=== PATIENT | male | born 1940 | race Caucasian/White ===

== ENCOUNTER 2017-06-16 13:54 | Emergency (ER) | payer MEDICARE, OTHER ==
[~2017-06-16 13:54] MED LIST: CLON0.5T PO; CLOP75TA57 PO; Carbidopa/Levodopa PO; EZET10TA18 PO; HYDR12.58 PO; LACO50TA PO; LEVO50TA PO; METF500T4 PO; METO-269 PO; SIMV80TA3 PO; SITA50TA PO; VALS160T3 PO
[2017-06-16] MEDS ORDERED: LIDOCAINE 1%/EPI 1:100,000 20 ML VIAL. INJ ONE (14:15)
--- NOTE | 2017-06-16 14:17 | PHYS DOC ---
Past Medical History Past Medical History: Diabetes-Type II, High Cholesterol, Hypertension, Other Additional Past Medical Histor: tremors Past Surgical History: Coronary Bypass Surgery Alcohol Use: None Drug Use: None Adult General Chief Complaint Chief Complaint: leg laceration [facility] HPI Patient is a pleasant 77-year-old male who sustained a laceration this morning after tripping over a broken bottle in his home. He has a history of Parkinson' s and essential tremor as well as diabetes hypertension hyperlipidemia who actually stopped fell on a broken bottle this morning. He denies any foreign body sensation but he was not able to get the bleeding stopped with direct pressure until a neighbor came over and looked at the wound. EMS was dispatched to scene and they placed a pressure dressing on it that some subsequently stopped the bleeding. Patient has minimal pain, no evidence of dizziness or lightheadedness. Patient has no chest pain, abdominal pain or focal neurologic deficits below the wound. Review of Systems Review of Systems Constitutional: Denies fever or chills [] Eyes: Denies change in visual acuity, redness, or eye pain [] HENT: Denies nasal congestion or sore throat [] Respiratory: Denies cough or shortness of breath [] Cardiovascular: No additional information not addressed in HPI [] GI: Denies abdominal pain, nausea, vomiting, bloody stools or diarrhea [] : Denies dysuria or hematuria [] Musculoskeletal: Denies back pain or joint pain [] Integument: Denies rash or skin lesions [] Neurologic: Denies headache, focal weakness or sensory changes [] Endocrine: Denies polyuria or polydipsia [] Current Medications Current Medications Current Medications Medications (Trade) Dose Ordered Sig/[facility] Start Time Stop Time Status Last Admin Dose Admin Lidocaine/ Epinephrine (Xylocaine 1%-Epi 1:100,000) 20 ml 1X ONCE 06/16/17 14:15 06/16/17 14:16 DC 06/16/17 14:15 20 ML Allergies Allergies Allergies Coded Allergies Type Severity Reaction Last Updated Verified No Known Drug Allergies 06/17/15 No Physical Exam Physical Exam Constitutional: Well developed, well nourished, no acute distress, non-toxic appearance. [] Cardiovascular:Heart rate regular rhythm, no murmur [] Lungs & Thorax: Bilateral breath sounds clear to auscultation [] Skin: Warm, dry, no erythema, no rash. 3 cm laceration located on the lateral aspect of the left lower leg no foreign body noted active bleeding is diminished significantly. There is significant clot within the wound. Extremities: No tenderness, no cyanosis, he has an essential tremor Neurologic: Alert and oriented X 3, normal motor function, normal sensory function, no focal deficits noted. [] Psychologic: Affect normal, judgement normal, mood normal. [] Current Patient Data Vital Signs Vital Signs Date Time Temp Pulse Resp B/P (MAP) Pulse Ox O2 Delivery O2 Flow Rate FiO2 06/16/17 14:40 98.6 46 18 160/48 (85) 100 Room Air 98.6 EKG EKG [] Radiology/Procedures Radiology/Procedures [] IMAGING REPORT Signed PATIENT: TALIA JENNINGS ACCOUNT: [id number] : 1940 LOCATION: ER AGE: 77 SEX: M EXAM STATUS: PRE ER ORD. PHYSICIAN: RAKEL JON MD REASON: laceration lower leg ED15 PROCEDURE: TIBIA FIBULA LEFT Indication fall. Pain. AP and lateral views of the left tibia and fibula were obtained. No bony abnormality is seen. No definite radiopaque foreign body is seen in the soft tissues DICTATED and SIGNED BY: MIKE MONTALVO MD DATE: 06/16/171428 CC: RAKEL JON MD ~ Course & Med Decision Making Course & Med Decision Making Pertinent Labs and Imaging studies reviewed. (See chart for details) 3 view leg x-ray reviewed by me demonstrated no foreign body. By Dr. Jon [] Dragon Disclaimer Dragon Disclaimer This electronic medical record was generated, in whole or in part, using a voice recognition dictation system. Laceration Repair Lac Repair Indication: [] Laceration to the left leg. Procedure: The patient was placed in the appropriate position and anesthesia around the left lower leg 5 mL of 2% lidocaine. The area was then with direct pressure and Betadine.]. The laceration was closed with 4.0 Ethilon 8 interrupted sutures].The wound area was then dressed with bacitracin and dry dressing.. Total repaired wound length: 2.5 cm]. Other Items: No Foreign body noted within the wound itself. The patient tolerated the procedure [the procedure well]. Complications: [No complications. Departure Departure Impression: Primary Impression: Laceration Additional Impression: Tremor Disposition: 01 HOME, SELF-CARE Condition: IMPROVED Patient Instructions: Laceration Care, Adult Additional Instructions: History of any signs of infection or if you have any questions or concerns or difficulty in the bleeding stopped. Scripts Bacitracin Zinc/Polymyx B Sulf (DOUBLE ANTIBIOTIC OINTMENT) 28.4 Gm Oint...g. 28.4 GM TP TID for 5 Days, MISC Prov: RAKEL JON MD 06/16/17 Problem Qualifiers RAKEL JON MD Jun 16, 2017 14:17
--- NOTE | 2017-06-16 14:34 | RAD ---
Indication fall. Pain. AP and lateral views of the left tibia and fibula were obtained. No bony abnormality is seen. No definite radiopaque foreign body is seen in the soft tissues
[2017-06-16 14:40] VITALS: BP 160/48
[2017-06-16] MEDS ORDERED: BACI28.4 TP (15:00)
[2017-06-17] MEDS ORDERED: BACITRACIN/POLYMYXIN B TOPICAL OINT 15GM TUBE. TP SCH (09:00)
== END 2017-06-16 15:24 | disposition home or self-care (01) ==
LOC: ER 13:54
DX: S81.812A Laceration without foreign body, left lower leg, initial encounter (principal); R25.1 Tremor, unspecified; E11.9 Type 2 diabetes mellitus without complications; E78.00 Pure hypercholesterolemia, unspecified; E78.5 Hyperlipidemia, unspecified; I10 Essential (primary) hypertension; G20 Parkinson's disease; G25.0 Essential tremor; Z95.1 Presence of aortocoronary bypass graft; W26.8XXA Contact with other sharp object(s), not elsewhere classified, initial encounter; Y93.89 Activity, other specified; Y92.009 Unspecified place in unspecified non-institutional (private) residence as the place of occurrence of the external cause; Y99.8 Other external cause status
CPT/HCPCS: 12001; 73590; 99284; J3490

== ENCOUNTER 2018-07-18 10:36 | Emergency (ER) | payer MEDICARE, OTHER ==
[~2018-07-18] VITALS: Ht 167.6 cm; Wt 86.2 kg
[~2018-07-18 10:36] MED LIST changes: +AMLO5TAB2 PO; +ASPI-612 PO; +BACI28.4 TP; +CARB1TAB2 PO; +CLOP75TA PO; +CYAN10005 PO; +ESCITALOPRAM OX10 MG PO; +FURO20TA3 PO; +GABA-585 PO; +GLIP-112 PO; +GLIP5TAB22 PO; +HYDR25TA9 PO; +LEVO75TA5 PO; -METF500T4 PO; +METF500T5 PO; -SIMV80TA3 PO; +SIMV80TA7 PO; +SITA100T PO
[2018-07-18 11:29] LABS: BASO # 0.1 x10^3/uL (0.0-0.2); BASO % 1 % (0-3); EOS # 0.2 x10^3/uL (0.0-0.7); EOS % 4 % (0-3); HEMATOCRIT 44.2 % (39.0-53.0); HEMOGLOBIN 15.1 g/dL (13.0-17.5); LYMPH # 1.1 x10^3/uL (1.0-4.8); LYMPH % 25 % (24-48); MEAN CORPUSCULAR HEMOGLOBIN 31 pg (25-35); MEAN CORPUSCULAR HGB CONC 34 g/dL (31-37); MEAN CORPUSCULAR VOLUME 90 fL (79-100); MONO # 0.5 x10^3/uL (0.0-1.1); MONO % 12 % (0-9); NEUT # 2.7 x10^3uL (1.8-7.7); NEUT % 59 % (31-73); PLATELET COUNT 187 x10^3/uL (140-400); RED BLOOD COUNT 4.89 x10^6/uL (4.30-5.70); RED CELL DISTRIBUTION WIDTH 13.3 % (11.5-14.5); WHITE BLOOD COUNT 4.6 x10^3/uL (4.0-11.0)
[2018-07-18] MEDS ORDERED: IV NORMAL SALINE 1000ML BAG 1,000 ML IV ONE (11:30)
[2018-07-18] MEDS ORDERED: MECLIZINE HCL 12.5 MG TABLET. PO ONE (11:30)
[2018-07-18 11:43] LABS: CREATININE 2.8 mg/dL (0.7-1.3); POTASSIUM 4.4 mmol/L (3.5-5.1)
[2018-07-18 11:49] LABS: ALBUMIN 2.7 g/dL (3.4-5.0); ALBUMIN/GLOBULIN RATIO 0.6 (1.0-1.7); MAGNESIUM 1.9 mg/dL (1.8-2.4); TOTAL BILIRUBIN 0.5 mg/dL (0.2-1.0); TOTAL PROTEIN 6.9 g/dL (6.4-8.2)
[2018-07-18 12:16] LABS: BILIRUBIN,URINE NEGATIVE (NEG); CLARITY,URINE CLEAR; COLOR,URINE YELLOW; NITRITE,URINE NEGATIVE (NEG); PH,URINE 6.5; PROTEIN,URINE >=300 mg/dL (NEG-TRACE); UROBILINOGEN,URINE 0.2 mg/dL (0.2 mg/dL)
[2018-07-18 12:26] LABS: BACTERIA,URINE FEW /HPF (0-FEW); SQUAMOUS EPITHELIAL CELL,UR FEW /LPF
[2018-07-18 12:27] LABS: HYALINE CASTS, URINE OCCASIONAL /HPF
[2018-07-18 12:48] VITALS: BP 221/93
[2018-07-18] MEDS ORDERED: cloNIDine HCL 0.1 MG TABLET PO ONE (13:00)
--- NOTE | 2018-07-18 13:25 | PHYS DOC ---
Past Medical History Past Medical History: Diabetes-Type II, High Cholesterol, Hypertension, Hypothyroid, Other Additional Past Medical Histor: tremors, NEUROPATHY, RENAL FAILURE, Past Surgical History: Coronary Bypass Surgery Alcohol Use: None Drug Use: None Adult General Chief Complaint Chief Complaint: DIZZY/LIGHT HEADED HPI HPI Patient is a 78-year-old male who presents with report of acute onset of dizziness that started this morning when he woke up. He describes the dizziness as feeling like everything is spinning. He states that the symptoms are worsened if he stands up quickly or turns his head quickly. He denies having had any nausea, vomiting or diaphoresis and he also denies chest pain or shortness of breath. Patient states that what brought him in this morning is because he lost his balance and was having difficulty standing due to the dizziness. He states he has had no speech deficit, facial droop or lateralizing weakness. Patient states that nothing is improving the symptoms. Review of Systems Review of Systems Constitutional: Denies fever or chills [] Eyes: Denies change in visual acuity, redness, or eye pain [] Respiratory: Denies cough or shortness of breath [] Cardiovascular: Denies chest pain[] GI: Denies abdominal pain, nausea, vomiting or diarrhea [] Neurologic: Complains of dizziness[] All other systems were reviewed and found to be within normal limits, except as documented in this note. Current Medications Current Medications Current Medications Medications (Trade) Dose Ordered Sig/[facility] Start Time Stop Time Status Last Admin Dose Admin Clonidine HCl (Catapres) 0.2 mg 1X ONCE 07/18/18 13:00 07/18/18 13:01 DC 07/18/18 12:48 0.2 MG Meclizine HCl (Antivert) 25 mg 1X ONCE 07/18/18 11:30 07/18/18 11:31 DC 07/18/18 11:24 25 MG Sodium Chloride 1,000 ml @ 125 mls/hr 1X ONCE 07/18/18 11:30 07/18/18 19:29 07/18/18 11:24 125 MLS/HR Allergies Allergies Allergies Coded Allergies Type Severity Reaction Last Updated Verified No Known Drug Allergies 06/17/15 No Physical Exam Physical Exam Constitutional: Well developed, well nourished, no acute distress, non-toxic appearance. [] HENT: Normocephalic, atraumatic, bilateral external ears normal, oropharynx moist, no oral exudates, nose normal. [] Eyes: PERRLA, EOMI, conjunctiva normal, no discharge. [] Neck: Normal range of motion, no tenderness, supple, no stridor. [] Cardiovascular:Heart rate regular rhythm [] Lungs & Thorax: Bilateral breath sounds clear to auscultation [] Abdomen: Bowel sounds normal, soft, no tenderness. [] Skin: Warm, dry, no erythema, no rash. [] Extremities: No tenderness, no cyanosis, no clubbing, ROM intact, no edema. [] Neurologic: Alert and oriented X 3, normal motor function, normal sensory function, no focal deficits noted. [] Current Patient Data Vital Signs Vital Signs Date Time Temp Pulse Resp B/P (MAP) Pulse Ox O2 Delivery O2 Flow Rate FiO2 07/18/18 12:48 54 221/93 07/18/18 12:10 18 100 07/18/18 10:36 97.0 Room Air 97.0 Lab Values Laboratory Tests Test 07/18/18 10:36 07/18/18 12:05 White Blood Count 4.6 x10^3/uL (4.0-11.0) Red Blood Count 4.89 x10^6/uL (4.30-5.70) Hemoglobin 15.1 g/dL (13.0-17.5) Hematocrit 44.2 % (39.0-53.0) Mean Corpuscular Volume 90 fL (79-100) Mean Corpuscular Hemoglobin 31 pg (25-35) Mean Corpuscular Hemoglobin Concent 34 g/dL (31-37) Red Cell Distribution Width 13.3 % (11.5-14.5) Platelet Count 187 x10^3/uL (140-400) Neutrophils (%) (Auto) 59 % (31-73) Lymphocytes (%) (Auto) 25 % (24-48) Monocytes (%) (Auto) 12 % (0-9) H Eosinophils (%) (Auto) 4 % (0-3) H Basophils (%) (Auto) 1 % (0-3) Neutrophils # (Auto) 2.7 x10^3uL (1.8-7.7) Lymphocytes # (Auto) 1.1 x10^3/uL (1.0-4.8) Monocytes # (Auto) 0.5 x10^3/uL (0.0-1.1) Eosinophils # (Auto) 0.2 x10^3/uL (0.0-0.7) Basophils # (Auto) 0.1 x10^3/uL (0.0-0.2) Sodium Level 139 mmol/L (136-145) Potassium Level 4.4 mmol/L (3.5-5.1) Chloride Level 105 mmol/L (98-107) Carbon Dioxide Level 29 mmol/L (21-32) Anion Gap 5 (6-14) L Blood Urea Nitrogen 34 mg/dL (8-26) H Creatinine 2.8 mg/dL (0.7-1.3) H Estimated GFR (Cockcroft-Gault) 22.0 BUN/Creatinine Ratio 12 (6-20) Glucose Level 128 mg/dL (70-99) H Calcium Level 8.0 mg/dL (8.5-10.1) L Magnesium Level 1.9 mg/dL (1.8-2.4) Total Bilirubin 0.5 mg/dL (0.2-1.0) Aspartate Amino Transferase (AST) 16 U/L (15-37) Alanine Aminotransferase (ALT) 8 U/L (16-63) L Alkaline Phosphatase 68 U/L (46-116) Total Protein 6.9 g/dL (6.4-8.2) Albumin 2.7 g/dL (3.4-5.0) L Albumin/Globulin Ratio 0.6 (1.0-1.7) L Urine Collection Type Unknown Urine Color Yellow Urine Clarity Clear Urine pH 6.5 Urine Specific [place] 1.015 Urine Protein >=300 mg/dL (NEG-TRACE) Urine Glucose (UA) 250 mg/dL (NEG) Urine Ketones (Stick) Negative mg/dL (NEG) Urine Blood Negative (NEG) Urine Nitrite Negative (NEG) Urine Bilirubin Negative (NEG) Urine Urobilinogen Dipstick 0.2 mg/dL (0.2 mg/dL) Urine Leukocyte Esterase Negative (NEG) Urine RBC 1-2 /HPF (0-2) Urine WBC 1-4 /HPF (0-4) Urine Squamous Epithelial Cells Few /LPF Urine Bacteria Few /HPF (0-FEW) Urine Hyaline Casts Occasional /HPF Urine Mucus Slight /LPF Laboratory Tests 07/18/18 10:36 Laboratory Tests 07/18/18 10:36 EKG EKG [] Interpretation Time: EKG demonstrates sinus bradycardia with a rate of 50. There is right bundle branch block. Radiology/Procedures Radiology/Procedures [] Course & Med Decision Making Course & Med Decision Making Pertinent Labs and Imaging studies reviewed. (See chart for details) [] Dragon Disclaimer Dragon Disclaimer This electronic medical record was generated, in whole or in part, using a voice recognition dictation system. Departure Departure Impression: Primary Impression: Benign paroxysmal positional vertigo Additional Impression: Hypertension Disposition: HOME, SELF-CARE Condition: STABLE Referrals: KESHIA JIANG MD (PCP) Patient Instructions: Benign Positional Vertigo, Hypertension Additional Instructions: Take prescribed medication as directed and follow-up with your primary care provider in the next few days. Scripts Meclizine Hcl (MECLIZINE HCL) 25 Mg Tablet 25 MG PO PRN TID PRN for DIZZINESS, #30 dizziness Prov: MANASA BRUNO Jr. DO 07/18/18 Problem Qualifiers Primary Impression: Benign paroxysmal positional vertigo Laterality: unspecified laterality Qualified Codes: H81.10 - Benign paroxysmal vertigo, unspecified ear Additional Impression: Hypertension Hypertension type: essential hypertension Qualified Codes: I10 - Essential ( primary) hypertension MANASA BRUNO Jr. DO Jul 18, 2018 13:25
--- NOTE | 2018-07-18 13:32 | EKG ---
[facility] [address] [place] [address] Test Date: 2018-07-18 Test Time: 10:39:11 Pat Name: TALIA JENNINGS Department: Room: Gender: M Physician Executive: : 1940 Requested By: MANASA BRUNO Order Number: [id number] Reading MD: Jose Valdivia MD Measurements Intervals [place] Rate: 50 P: [place]: QRS: -5 QRSD: 132 T: 68 QT: 514 QTc: 472 Interpretive Statements SR RBBB CANNOT RULE OUT INFERIOR INJURY PATTERN - CLINICAL CORRELATION RECOMMENDED Electronically Signed On 07-19-2018 7:40:06 CDT by Jose Valdivia MD
[2018-07-18] MEDS ORDERED: MECL25TA3 PO (14:00)
== END 2018-07-18 14:29 | disposition home or self-care (01) ==
LOC: ER 10:36
DX: H81.10 Benign paroxysmal vertigo, unspecified ear (principal); I12.9 Hypertensive chronic kidney disease with stage 1 through stage 4 chronic kidney disease, or unspecified chronic kidney disease; N18.9 Chronic kidney disease, unspecified; E11.22 Type 2 diabetes mellitus with diabetic chronic kidney disease; E11.40 Type 2 diabetes mellitus with diabetic neuropathy, unspecified; E78.00 Pure hypercholesterolemia, unspecified; E03.9 Hypothyroidism, unspecified; I45.10 Unspecified right bundle-branch block; R00.1 Bradycardia, unspecified; Z95.5 Presence of coronary angioplasty implant and graft
CPT/HCPCS: 36415; 80053; 81001; 83735; 85025; 93005; 96360; 99285; J7030; J8597

== ENCOUNTER 2019-01-18 12:00 | Emergency (ER) | payer MEDICARE, OTHER ==
[~2019-01-18] VITALS: Ht 167.6 cm; Wt 85.7 kg
[~2019-01-18 12:00] MED LIST changes: +AMLO5TAB10 PO; -AMLO5TAB2 PO; +ATORVASTATIN CA80 MG PO; -BACI28.4 TP; +BACI28.433 TP; +CARB1TAB5 PO; +CHOL500050 PO; -GLIP-112 PO; +GLIP10TA24 PO; +HYDR-2145 PO; -HYDR25TA9 PO; +LEVO88TA4 PO; +MECL25TA3 PO; +METF500T16 PO; -METF500T5 PO; +METO50TA6 PO; +NITR0.4T22 SL; +SIMV80TA17 PO; -SIMV80TA7 PO
[2019-01-18 12:11] VITALS: BP 148/65
--- NOTE | 2019-01-18 13:02 | PHYS DOC ---
Past Medical History Past Medical History: Diabetes-Type II, High Cholesterol, Hypertension, Hypothyroid, TIA, Other Additional Past Medical Histor: tremors, NEUROPATHY, RENAL FAILURE, parkinsons , osteoarthritis Past Surgical History: Coronary Bypass Surgery Alcohol Use: None Drug Use: None Adult General Chief Complaint Chief Complaint: MECHANICAL FALL HPI HPI Patient is a 78 year old male who presents via EMS after falling on ice followed by tripping over boxes in his assisted living apartment this morning. He denies losing consciousness or hitting his head. He has no acute pain complaints. He was brought to the ED as a precaution by the director at his assisted living facility. No recent illness. Reports hearing a cracking noise in his left hip after bending down 3 weeks ago. Continues to have residual pain upon prolonged standing. [] Review of Systems Review of Systems Constitutional: Denies fever or chills [] Eyes: Denies change in visual acuity, redness, or eye pain [] HENT: Denies nasal congestion or sore throat [] Respiratory: Denies cough or shortness of breath [] Cardiovascular: No additional information not addressed in HPI [] GI: Denies abdominal pain, nausea, vomiting, bloody stools or diarrhea [] : Denies dysuria or hematuria [] Musculoskeletal: Left hip pain, left LE edema [] Integument: Denies rash or skin lesions [] Neurologic: Denies headache, focal weakness or sensory changes [] Endocrine: Denies polyuria or polydipsia [] All other systems were reviewed and found to be within normal limits, except as documented in this note. Allergies Allergies Allergies Coded Allergies Type Severity Reaction Last Updated Verified No Known Drug Allergies 06/17/15 No Physical Exam Physical Exam Constitutional: Well developed, well nourished, no acute distress, non-toxic appearance. [] HENT: Normocephalic, atraumatic, bilateral external ears normal, oropharynx moist, no oral exudates, nose normal. [] Eyes: PERRLA, EOMI, conjunctiva normal, no discharge. [] Neck: Normal range of motion, no tenderness, supple, no stridor. [] Cardiovascular:Heart rate regular rhythm, no murmur [] Lungs & Thorax: Bilateral breath sounds clear to auscultation [] Abdomen: Bowel sounds normal, soft, no tenderness, no pulsatile masses. Reducible periumbilical hernia [] Skin: Warm, dry, no erythema, no rash. [] Back: No tenderness, no CVA tenderness. [] Extremities: No tenderness, no cyanosis, no clubbing, ROM intact, left LE edema. [] Neurologic: Bilateral resting tremor, Alert and oriented X 3, normal sensory function, no focal deficits noted. [] Psychologic: Affect normal, judgement normal, mood normal. [] Current Patient Data Vital Signs Vital Signs Date Time Temp Pulse Resp B/P (MAP) Pulse Ox O2 Delivery O2 Flow Rate FiO2 01/18/19 12:11 98.1 69 20 148/65 (92) 95 Room Air 98.1 EKG EKG [] Radiology/Procedures Radiology/Procedures Hip X-ray FINDINGS: The bilateral femoral heads within the acetabula. Mild joint space loss identified in the bilateral hip joints. There is no acute fracture or dislocation identified. IMPRESSION: 1. No acute osseous findings.[] Course & Med Decision Making Course & Med Decision Making Pt is a 78 year old male with past medical history of Parkinson's, hypertension, Type 2 DM, hypothyroidism and depression presents for evaluation after slipping on ice followed by tripping on boxes. Alert and Oriented x3, no acute pain, no LOC, no visible injuries. Rule out hip fracture from incident 3 weeks ago when he heard a cracking sound while bending over and residual pain upon prolonged standing Pertinent Labs and Imaging studies reviewed. (See chart for details) Plan hip x-ray [] neg acute ambulates safely int he er wtih a walker. pt has no focal complaints, gives very strong histroy of mechanical fall Dragon Disclaimer Dragon Disclaimer This electronic medical record was generated, in whole or in part, using a voice recognition dictation system. Departure Departure Impression: Primary Impression: Fall Disposition: 01 HOME, SELF-CARE Condition: STABLE Referrals: KESHIA JIANG MD (PCP) TIFFANY GAXIOLA MD Jan 18, 2019 13:02
--- NOTE | 2019-01-18 13:12 | RAD ---
Examination: 2 views of the left hip and frontal view the pelvis HISTORY: History of fall COMPARISON: None available FINDINGS: The bilateral femoral heads within the acetabula. Mild joint space loss identified in the bilateral hip joints. There is no acute fracture or dislocation identified. IMPRESSION: 1. No acute osseous findings. Electronically signed by: Dawson Manuel MD (01/18/2019 1:09 PM) [place] [id number]
== END 2019-01-18 15:40 | disposition home or self-care (01) ==
LOC: ER 12:00
DX: M25.552 Pain in left hip (principal); G89.11 Acute pain due to trauma; R60.0 Localized edema; E11.40 Type 2 diabetes mellitus with diabetic neuropathy, unspecified; E03.9 Hypothyroidism, unspecified; E78.00 Pure hypercholesterolemia, unspecified; I12.9 Hypertensive chronic kidney disease with stage 1 through stage 4 chronic kidney disease, or unspecified chronic kidney disease; E11.22 Type 2 diabetes mellitus with diabetic chronic kidney disease; N18.9 Chronic kidney disease, unspecified; Z95.1 Presence of aortocoronary bypass graft; W18.39XA Other fall on same level, initial encounter; Y93.89 Activity, other specified; Y92.89 Other specified places as the place of occurrence of the external cause; Y99.8 Other external cause status
CPT/HCPCS: 73502; 99283; 99284

== ENCOUNTER 2019-01-31 17:34 | Emergency (ER) | payer MEDICARE, OTHER ==
[~2019-01-31] VITALS: Ht 167.6 cm; Wt 85.7 kg
--- NOTE | 2019-01-31 17:54 | PHYS DOC ---
Past Medical History Past Medical History: Diabetes-Type II, High Cholesterol, Hypertension, Hypothyroid, TIA, Other Additional Past Medical Histor: tremors, NEUROPATHY, RENAL FAILURE, parkinsons , osteoarthritis (DANITZA LIVINGSTON) Past Surgical History: Coronary Bypass Surgery (DANITZA LIVINGSTON) Alcohol Use: None Drug Use: None (DANITZA LIVINGSTON) Adult General Chief Complaint Chief Complaint: MECHANICAL FALL HPI HPI Patient is a 78 year old male with a history of Parkinson's, TIA and diabetes presents to the ED complaining of fall out of chair onto ground times one hour ago. States he slid out of the chair. Patient lives in an assisted-living facility and states that he slipped out of the chair and sat on the ground. Complains of no pain and no symptoms at this time. Patient able to ambulate with a walker for a short distance. Denies fever, head/neck injury, LOC, symptoms prior to fall, weakness, dizziness, chest pain, shortness of breath, abdominal pain, back pain or neck pain. (DANITZA LIVINGSTON) Review of Systems Review of Systems Constitutional: Denies fever or chills [] Eyes: Denies change in visual acuity, redness, or eye pain [] HENT: Denies nasal congestion or sore throat [] Respiratory: Denies cough or shortness of breath [] Cardiovascular: No additional information not addressed in HPI [] GI: Denies abdominal pain, nausea, vomiting, bloody stools or diarrhea [] : Denies dysuria or hematuria [] Musculoskeletal: Denies back pain or joint pain [] Integument: Denies rash or skin lesions [] Neurologic: Denies headache, focal weakness or sensory changes [] All other systems were reviewed and found to be within normal limits, except as documented in this note. (DANITZA LIVINGSTON) Allergies Allergies Allergies Coded Allergies Type Severity Reaction Last Updated Verified No Known Drug Allergies 06/17/15 No (TIFFANY GAXIOLA MD) Physical Exam Physical Exam Constitutional: Well developed, well nourished, no acute distress, non-toxic appearance. [] HENT: Normocephalic, atraumatic, bilateral external ears normal, oropharynx moist, no oral exudates, nose normal. [] Eyes: PERRLA, EOMI, conjunctiva normal, no discharge. [] Neck: Normal range of motion, no tenderness, supple, no stridor. [] Cardiovascular:Heart rate regular rhythm, no murmur [] Lungs & Thorax: Bilateral breath sounds clear to auscultation [] Abdomen: Bowel sounds normal, soft, no tenderness, no masses, no pulsatile masses. [] Skin: Warm, dry, no erythema, no rash. [] Back: No tenderness, no CVA tenderness. [] Extremities: No tenderness, no cyanosis, no clubbing, ROM intact, no edema. [] Neurologic: Alert and oriented X 3, normal motor function, normal sensory function, no focal deficits noted. [] Psychologic: Affect normal, judgement normal, mood normal. [] (DANITZA LIVINGSTON) Current Patient Data Vital Signs Vital Signs Date Time Temp Pulse Resp B/P (MAP) Pulse Ox O2 Delivery O2 Flow Rate FiO2 01/31/19 18:07 80 20 91 01/31/19 17:40 98.9 15 (43) Room Air 98.9 (TIFFANY GAXIOLA MD) EKG EKG []EKG shows sinus rhythm at 70 BPM. No STEMI. Consistent with previous EKG on record. (DANITZA LIVINGSTON) Radiology/Procedures Radiology/Procedures PROCEDURE: PELVIS Examination: PELVIS History: ER PATIENT. TRAUMA FALL PELVIC PAIN. PRIOR XRAY. Comparison/Correlation: 01/18/2019 frontal view of the pelvis and bilateral hip x-ray exam Findings: Frontal view of the pelvis was obtained. Sacroiliac joints are unremarkable. Vascular calcification involving the proximal thighs noted. No acute fracture or bony destruction. Impression: No fracture. Consider further evaluation if occult process is a persistent concern.[] (DANITZA LIVINGSTON) Course & Med Decision Making Course & Med Decision Making Pertinent Labs and Imaging studies reviewed. (See chart for details) []Discussed imaging findings with patient. States he feels well. No bony tenderness. Discussed safe transfer and fall prevention. Patient will be discharged back to nursing facility. Discussed reasons to return to the ED. Patient understands and agrees with plan. (DANITZA LIVINGSTON) Course & Med Decision Making Staff Physician Addendum: I was working in the ER during the course of this patient's visit. I was available for consultation as needed, but I was not directly involved in the care of this patient. (TIFFANY GAXIOLA MD) Dragon Disclaimer Dragon Disclaimer This electronic medical record was generated, in whole or in part, using a voice recognition dictation system. (DANITZA LIVINGSTON) Departure Departure Impression: Primary Impression: Accident due to mechanical fall without injury Disposition: HOME, SELF-CARE Condition: IMPROVED Referrals: KESHIA JIANG MD (PCP) Patient Instructions: Fall Prevention and Home Safety DANITZA LIVINGSTON Jan 31, 2019 17:54 TIFFANY GAXIOLA MD Feb 01, 2019 05:11
--- NOTE | 2019-01-31 18:43 | RAD ---
Examination: PELVIS History: ER PATIENT. TRAUMA FALL PELVIC PAIN. PRIOR XRAY. Comparison/Correlation: 01/18/2019 frontal view of the pelvis and bilateral hip x-ray exam Findings: Frontal view of the pelvis was obtained. Sacroiliac joints are unremarkable. Vascular calcification involving the proximal thighs noted. No acute fracture or bony destruction. Impression: No fracture. Consider further evaluation if occult process is a persistent concern. Electronically signed by: Giancarlo Wells MD (01/31/2019 6:40 PM) [facility]
[2019-01-31 20:37] VITALS: BP 122/60
--- NOTE | 2019-02-01 01:39 | RAD ---
Single view chest dated 01/31/2019. Comparison made to 10/06/2017. Clinical data indication: Pain after fall. FINDINGS: Single upright portable exam performed. Heart and mediastinal contours are stable. Patient is status post median sternotomy. Lungs are hyperinflated but otherwise clear. No consolidation or pleural effusion. No pneumothorax. IMPRESSION: No acute radiographic abnormality. Stable findings compared to 10/06/2017. Electronically signed by: Zoltan Jones MD (02/01/2019 1:36 AM) [id number]
--- NOTE | 2019-02-01 07:46 | EKG ---
[facility] [address] [place] [address] Test Date: 2019-01-31 Test Time: 17:39:43 Pat Name: TALIA JENNINGS Department: Room: Gender: M Spool Carrier: : 1940 Requested By: DANITZA LIVINGSTON Order Number: [id number] Reading MD: Jose Valdivia MD Measurements Intervals [place] Rate: 86 P: -34 IN: 148 QRS: 6 QRSD: 140 T: 26 QT: 396 QTc: 477 Interpretive Statements PROBABLE SR RBBB PRIOR INFERIOR INFARCT CANNOT RULE OUT ACUTE INFERIOR INJURY Electronically Signed On 02-04-2019 13:20:11 CDT by Jose Valdivia MD
== END 2019-01-31 21:00 | disposition home or self-care (01) ==
LOC: ER 17:34
DX: R10.2 Pelvic and perineal pain (principal); R07.89 Other chest pain; G89.11 Acute pain due to trauma; E78.00 Pure hypercholesterolemia, unspecified; E03.9 Hypothyroidism, unspecified; E11.40 Type 2 diabetes mellitus with diabetic neuropathy, unspecified; I12.9 Hypertensive chronic kidney disease with stage 1 through stage 4 chronic kidney disease, or unspecified chronic kidney disease; E11.22 Type 2 diabetes mellitus with diabetic chronic kidney disease; N18.9 Chronic kidney disease, unspecified; Z86.73 Personal history of transient ischemic attack (TIA), and cerebral infarction without residual deficits; Z95.1 Presence of aortocoronary bypass graft; W07.XXXA Fall from chair, initial encounter; Y93.89 Activity, other specified; Y92.098 Other place in other non-institutional residence as the place of occurrence of the external cause; Y99.8 Other external cause status
CPT/HCPCS: 71045; 72170; 93005; 99284

== ENCOUNTER 2019-02-07 01:33 | Inpatient (IN) | payer MEDICARE, OTHER ==
[~2019-02-07] VITALS: Ht 177.8 cm; Wt 75.5 kg
[2019-02-07] VITALS (7 sets, daily range): BP systolic 115–156; BP diastolic 55–63
[2019-02-07 02:01] LABS: BASO % 0 % (0-3); EOS # 0.1 x10^3/uL (0.0-0.7); EOS % 1 % (0-3); HEMATOCRIT 39.9 % (39.0-53.0); HEMOGLOBIN 13.1 g/dL (13.0-17.5); LYMPH # 0.9 x10^3/uL (1.0-4.8); LYMPH % 9 % (24-48); MEAN CORPUSCULAR HEMOGLOBIN 29 pg (25-35); MEAN CORPUSCULAR HGB CONC 33 g/dL (31-37); MEAN CORPUSCULAR VOLUME 88 fL (79-100); MONO # 0.5 x10^3/uL (0.0-1.1); MONO % 5 % (0-9); NEUT # 8.5 x10^3uL (1.8-7.7); NEUT % 85 % (31-73); PLATELET COUNT 288 x10^3/uL (140-400); RED BLOOD COUNT 4.55 x10^6/uL (4.30-5.70); RED CELL DISTRIBUTION WIDTH 13.2 % (11.5-14.5)
[2019-02-07 02:14] LABS: PROTHROMBIN TIME PATIENT 14.5 SEC (11.7-14.0)
--- NOTE | 2019-02-07 02:16 | RAD ---
PQRS Compliance statement: One or more of the following individualized dose reduction techniques were utilized for this examination: 1. Automated exposure control. 2. Adjustment of the mA and/or kV according to patient size. 3. Use of iterative reconstruction technique. Indication:ams TECHNIQUE: CT head without IV contrast COMPARISON:08/15/2018 FINDINGS: No pathologic extra-axial or intra-axial fluid collection. Mild diffuse supratentorial atrophy. The ventricles and basal cisterns are within normal limits. Old right basal ganglia lacunar infarcts. No acute intracranial bleed. No focal loss of khoury-white differentiation. Orbits are within normal limits. No suspicious calvarial lesions. Visualized paranasal sinuses and mastoid air cells are clear. IMPRESSION: 1. Stable right basal ganglia lacunar infarct. 2. No acute intracranial bleed. If concern for acute ischemic stroke is high, please consider MRI brain. Electronically signed by: Blanco Garcia DO (02/07/2019 2:13 AM) [facility]
--- NOTE | 2019-02-07 02:20 | RAD ---
PROCEDURE: PORTABLE CHEST 1V CLINICAL INDICATION: ams COMPARISON: 01/31/2019 FINDINGS: CABG changes noted. No pneumothorax identified. Cardiac and mediastinal contours unremarkable. No pulmonary consolidation or acute airspace disease. No acute osseous abnormalities identified. IMPRESSION: No pulmonary consolidation or acute airspace disease. Electronically signed by: Blanco Garcia DO (02/07/2019 2:17 AM) [facility]
[2019-02-07 02:50] LABS: BILIRUBIN,URINE NEGATIVE (NEG); CLARITY,URINE CLEAR; COLOR,URINE YELLOW; NITRITE,URINE NEGATIVE (NEG); PH,URINE 5.5; PROTEIN,URINE >=300 mg/dL (NEG-TRACE); UROBILINOGEN,URINE 0.2 mg/dL (0.2 mg/dL)
[2019-02-07 02:58] LABS: BARBITURATES NEG (NEG); BENZODIAZEPINES NEG (NEG); CANNABINOIDS NEG (NEG); COCAINE NEG (NEG); METHADONE NEG (NEG); OPIATES NEG (NEG); PHENCYCLIDINE NEG (NEG)
[2019-02-07 03:07] LABS: AMORPHOUS SEDIMENT,UR PRESENT /HPF; BACTERIA,URINE 0 /HPF (0-FEW); RBC,URINE 0 /HPF (0-2); SQUAMOUS EPITHELIAL CELL,UR FEW /LPF; WBC,URINE 0 /HPF (0-4)
--- NOTE | 2019-02-07 03:09 | PHYS DOC ---
Past Medical History Past Medical History: Diabetes-Type II, High Cholesterol, Hypertension, Hypothyroid, TIA, Other Additional Past Medical Histor: tremors, NEUROPATHY, RENAL FAILURE, parkinsons , osteoarthritis Past Surgical History: Coronary Bypass Surgery Alcohol Use: None Drug Use: None Adult General Chief Complaint Chief Complaint: ALTERED MENTAL STATUS HPI HPI Patient is a 78-year-old male who presents via EMS from [facility] with report of having been found in the laundry room, unconscious, up against the wall. EMS reports that initially patient was unresponsive and initial blood pressure was in the 70s systolic. They state that they had given a 500 mL bolus of saline and patient had regained consciousness and was answering some questions. Upon arrival, patient clearly confused but answering some questions. Patient denies any pain. Patient really unable to provide any additional history. Review of Systems Review of Systems Constitutional: No reported fever or chills [] Respiratory: No reported shortness of breath [] Cardiovascular: No additional information not addressed in HPI [] GI: Denies abdominal pain [] Neurologic: Denies headache [] Unable to fully assess review of systems due to patient's mental status/ confusion. Allergies Allergies Allergies Coded Allergies Type Severity Reaction Last Updated Verified No Known Drug Allergies 06/17/15 No Physical Exam Physical Exam Constitutional: Well developed, well nourished, no acute distress, non-toxic appearance. [] HENT: Normocephalic, atraumatic, bilateral external ears normal, oropharynx dry , no oral exudates, nose normal. [] Eyes: PERRLA, EOMI, conjunctiva normal, no discharge. [] Neck: Normal range of motion, no tenderness, supple. [] Cardiovascular: Regular rate and rhythm[] Lungs & Thorax: Bilateral breath sounds clear to auscultation [] Abdomen: Bowel sounds normal, soft, no tenderness. [] Skin: Warm, dry, no erythema, no rash. [] Extremities: No tenderness, no cyanosis, no clubbing, ROM intact. [] Neurologic: Somnolent but arousable, no obvious focal deficits noted. [] Current Patient Data Vital Signs Vital Signs Date Time Temp Pulse Resp B/P (MAP) Pulse Ox O2 Delivery O2 Flow Rate FiO2 02/07/19 01:34 97.6 70 20 152/67 (95) 91 Room Air 97.6 Lab Values Laboratory Tests Test 02/07/19 01:40 3/14/19 01:44 02/07/19 02:25 Glucose (Fingerstick) 184 mg/dL (70-99) H White Blood Count 10.0 x10^3/uL (4.0-11.0) Red Blood Count 4.55 x10^6/uL (4.30-5.70) Hemoglobin 13.1 g/dL (13.0-17.5) Hematocrit 39.9 % (39.0-53.0) Mean Corpuscular Volume 88 fL (79-100) Mean Corpuscular Hemoglobin 29 pg (25-35) Mean Corpuscular Hemoglobin Concent 33 g/dL (31-37) Red Cell Distribution Width 13.2 % (11.5-14.5) Platelet Count 288 x10^3/uL (140-400) Neutrophils (%) (Auto) 85 % (31-73) H Lymphocytes (%) (Auto) 9 % (24-48) L Monocytes (%) (Auto) 5 % (0-9) Eosinophils (%) (Auto) 1 % (0-3) Basophils (%) (Auto) 0 % (0-3) Neutrophils # (Auto) 8.5 x10^3uL (1.8-7.7) H Lymphocytes # (Auto) 0.9 x10^3/uL (1.0-4.8) L Monocytes # (Auto) 0.5 x10^3/uL (0.0-1.1) Eosinophils # (Auto) 0.1 x10^3/uL (0.0-0.7) Basophils # (Auto) 0.0 x10^3/uL (0.0-0.2) Prothrombin Time 14.5 SEC (11.7-14.0) H Prothrombin Time INR 1.2 (0.8-1.1) H PTT 42 SEC (24-38) H Sodium Level 140 mmol/L (136-145) Potassium Level 4.6 mmol/L (3.5-5.1) Chloride Level 103 mmol/L (98-107) Carbon Dioxide Level 20 mmol/L (21-32) L Anion Gap 17 (6-14) H Blood Urea Nitrogen 53 mg/dL (8-26) H Creatinine 3.8 mg/dL (0.7-1.3) H Estimated GFR (Cockcroft-Gault) 15.4 BUN/Creatinine Ratio 14 (6-20) Glucose Level 191 mg/dL (70-99) H Calcium Level 7.9 mg/dL (8.5-10.1) L Magnesium Level 2.1 mg/dL (1.8-2.4) Total Bilirubin 0.4 mg/dL (0.2-1.0) Aspartate Amino Transferase (AST) 16 U/L (15-37) Alanine Aminotransferase (ALT) 8 U/L (16-63) L Alkaline Phosphatase 96 U/L (46-116) Ammonia 16 mcmol/L (11-34) Troponin I Quantitative < 0.017 ng/mL (0.000-0.055) HH-Ltg-Y-Type Natriuretic Peptide 487 pg/mL (0-449) H Total Protein 6.5 g/dL (6.4-8.2) Albumin 2.4 g/dL (3.4-5.0) L Albumin/Globulin Ratio 0.6 (1.0-1.7) L Urine Collection Type U cath Urine Color Yellow Urine Clarity Clear Urine pH 5.5 Urine Specific [place] 1.025 Urine Protein >=300 mg/dL (NEG-TRACE) Urine Glucose (UA) 250 mg/dL (NEG) Urine Ketones (Stick) Negative mg/dL (NEG) Urine Blood Negative (NEG) Urine Nitrite Negative (NEG) Urine Bilirubin Negative (NEG) Urine Urobilinogen Dipstick 0.2 mg/dL (0.2 mg/dL) Urine Leukocyte Esterase Negative (NEG) Urine RBC 0 /HPF (0-2) Urine WBC 0 /HPF (0-4) Urine Squamous Epithelial Cells Few /LPF Urine Amorphous Sediment Present /HPF Urine Bacteria 0 /HPF (0-FEW) Urine Mucus Mod /LPF Urine Opiates Screen Neg (NEG) Urine Methadone Screen Neg (NEG) Urine Barbiturates Neg (NEG) Urine Phencyclidine Screen Neg (NEG) Urine Amphetamine/Methamphetamine Neg (NEG) Urine Benzodiazepines Screen Neg (NEG) Urine Cocaine Screen Neg (NEG) Urine Cannabinoids Screen Neg (NEG) Urine Ethyl Alcohol Neg (NEG) Laboratory Tests 02/07/19 01:44 Laboratory Tests 02/07/19 01:44 EKG EKG [] Interpretation Time: EKG demonstrates normal sinus rhythm with rate of 61. There is right bundle- branch block present. Radiology/Procedures Radiology/Procedures [] Impressions: PROCEDURE: CT HEAD WO CONTRAST PQRS Compliance statement: One or more of the following individualized dose reduction techniques were utilized for this examination: 1. Automated exposure control. 2. Adjustment of the mA and/or kV according to patient size. 3. Use of iterative reconstruction technique. Indication:ams TECHNIQUE: CT head without IV contrast COMPARISON:08/15/2018 FINDINGS: No pathologic extra-axial or intra-axial fluid collection. Mild diffuse supratentorial atrophy. The ventricles and basal cisterns are within normal limits. Old right basal ganglia lacunar infarcts. No acute intracranial bleed. No focal loss of khoury-white differentiation. Orbits are within normal limits. No suspicious calvarial lesions. Visualized paranasal sinuses and mastoid air cells are clear. IMPRESSION: 1. Stable right basal ganglia lacunar infarct. 2. No acute intracranial bleed. If concern for acute ischemic stroke is high, please consider MRI brain. Electronically signed by: Blanco Garcia DO (02/07/2019 2:13 AM) [facility] Course & Med Decision Making Course & Med Decision Making Pertinent Labs and Imaging studies reviewed. (See chart for details) [] Dragon Disclaimer Dragon Disclaimer This electronic medical record was generated, in whole or in part, using a voice recognition dictation system. Departure Departure Impression: Primary Impression: Altered mental status Additional Impression: Acute kidney injury superimposed on chronic kidney disease Disposition: 09 ADMITTED INPATIENT Admitting Physician: Ronna Gan Condition: IMPROVED Referrals: RONNA GAN MD (PCP) Problem Qualifiers Primary Impression: Altered mental status Altered mental status type: unspecified Qualified Codes: R41.82 - Altered mental status, unspecified MANASA BRUNO Jr., DO Feb 07, 2019 03:09
[2019-02-07 03:33] LABS: AMPHETAMINE/METHAMPHETAMINE NEG (NEG)
[2019-02-07 03:47] LABS: CALCIUM 7.9 mg/dL (8.5-10.1); CREATININE 3.8 mg/dL (0.7-1.3); GFR 15.4; POTASSIUM 4.6 mmol/L (3.5-5.1)
[2019-02-07 03:54] LABS: ALBUMIN 2.4 g/dL (3.4-5.0); ALBUMIN/GLOBULIN RATIO 0.6 (1.0-1.7); MAGNESIUM 2.1 mg/dL (1.8-2.4); TOTAL BILIRUBIN 0.4 mg/dL (0.2-1.0); TOTAL PROTEIN 6.5 g/dL (6.4-8.2)
[2019-02-07] MEDS ORDERED: ONDANSETRON PF 4 MG/2 ML VIAL. IV PRN (04:15)
[2019-02-07] MEDS: IV NORMAL SALINE 1000ML BAG 1,000 ML IV SCH ×3 (05:47→21:42)
--- NOTE | 2019-02-07 06:15 | EKG ---
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
[2019-02-07] MEDS ORDERED: DEXTROSE 50% 25 GM / 50ML DISP.SYRIN. IV PRN (08:15)
--- NOTE | 2019-02-07 08:48 | PDOC1 ---
History and Physical Date of Admission Date of Admission 02/07/19 Identification/Chief Complaint Chief Complaint LOC, fall Source Source: Patient History of Present Illness History of Present Illness Pt found unconscious by EMS with low blood pressure. Pt is able to recollect events for me. Says that he was walking into the laundry room and fell. Unsure of how he fell. Says that he thinks it was a misstep. Currently his back hurts. He has been having more falls lately. Legs feel very weak. He says that he has otherwise been doing well. He has had some nausea and diarrhea for the past week Past Medical History Cardiovascular: CAD, CHF, HTN, Hyperlipidemia Pulmonary: COPD, Other CENTRAL NERVOUS SYSTEM: CVA, Other GI: Diverticulosis, Other Heme/Onc: No pertinent hx Hepatobiliary: No pertinent hx Psych: No pertinent hx Rheumatologic: No pertinent hx Infectious disease: No pertinent hx ENT: No pertinent hx Renal/: Chronic renal insuff, Benign prostatic enlarg. Endocrine: Diabetes, Hypothyroidism Dermatology: No pertinent hx Past Surgical History Past Surgical History: CABG, Tonsillectomy Family History Family History: No Significant Social History Smoke: No ALCOHOL: none Drugs: None Current Problem List Problem List Problems Medical Problems: (1) Acute kidney injury superimposed on chronic kidney disease Status: Acute (2) Altered mental status Status: Acute Current Medications Current Medications Current Medications Medications (Trade) Dose Ordered Sig/Kristie Start Time Stop Time Status Last Admin Dose Admin Aspirin (Ecotrin) 81 mg DAILY 02/07/19 09:00 Atorvastatin Calcium (Lipitor) 80 mg QHS 02/07/19 21:00 Carbidopa/Levodopa (Sinemet 25/100) 2 tab TID 02/07/19 09:00 Citalopram Hydrobromide (CeleXA) 15 mg DAILY 02/07/19 09:00 Clopidogrel Bisulfate (Plavix) 75 mg DAILY 02/07/19 09:00 Cyanocobalamin (Vitamin B-12) 1,000 mcg DAILY 02/07/19 09:00 Dextrose (Dextrose 50%-Water Syringe) 12.5 gm PRN Q15MIN PRN 02/07/19 08:15 Furosemide (Lasix) 20 mg DAILY 02/07/19 09:00 Gabapentin (Neurontin) 200 mg TID 02/07/19 09:00 Glipizide (Glucotrol Er) 5 mg DAILY08 02/07/19 09:00 Insulin Human Lispro (HumaLOG) 0-5 UNITS TIDWMEALS 02/07/19 12:00 Levothyroxine Sodium (Synthroid) 88 mcg DAILY06 02/07/19 09:00 Losartan Potassium (Cozaar) 50 mg DAILY 02/07/19 09:00 Ondansetron HCl (Zofran) 4 mg PRN Q8HRS PRN 02/07/19 04:15 02/08/19 04:14 Sodium Chloride 1,000 ml @ 125 mls/hr Q8H 02/07/19 04:30 02/08/19 04:29 02/07/19 05:47 125 MLS/HR Allergies Allergies Allergies Coded Allergies Type Severity Reaction Last Updated Verified No Known Drug Allergies 06/17/15 No ROS Review of System CONSTITUTIONAL: No fever or chills EYES: No recent changes SKIN: No rash or itching CARDIOVASCULAR: No chest pain, syncope, palpitations, or edema RESPIRATORY: No SOB or cough GASTROINTESTINAL: No vomiting or abdominal pain +nausea NEUROLOGICAL: No headaches or weakness ENDOCRINE: No cold or heat intolerance GENITOURINARY: No urgency or frequency of urination MUSCULOSKELETAL: +back pain LYMPHATICS: No enlarged lymph nodes PSYCHIATRIC: No anxiety or depression Physical Exam Physical Exam GEN.: No apparent distress. Alert and oriented. tired HEENT: Head is normocephalic, atraumatic NECK: Supple. LUNGS: Clear to auscultation. HEART: RRR, S1, S2 present. Peripheral pulses intact ABDOMEN: Soft, nontender. Positive bowel sounds. EXTREMITIES: Without any cyanosis. NEUROLOGIC: Normal speech, normal tone PSYCHIATRIC: Normal affect, normal mood. SKIN: No ulcerations Vitals Vitals Vital Signs Date Time Temp Pulse Resp B/P (MAP) Pulse Ox O2 Delivery O2 Flow Rate FiO2 02/07/19 07:00 97.5 63 16 149/63 (91) 97 Nasal Cannula 97.5 02/07/19 05:30 2.0 Labs Labs Laboratory Tests Test 02/07/19 01:40 02/07/19 01:44 02/07/19 02:25 02/07/19 07:35 Glucose (Fingerstick) 184 mg/dL (70-99) 83 mg/dL (70-99) White Blood Count 10.0 x10^3/uL (4.0-11.0) Red Blood Count 4.55 x10^6/uL (4.30-5.70) Hemoglobin 13.1 g/dL (13.0-17.5) Hematocrit 39.9 % (39.0-53.0) Mean Corpuscular Volume 88 fL (79-100) Mean Corpuscular Hemoglobin 29 pg (25-35) Mean Corpuscular Hemoglobin Concent 33 g/dL (31-37) Red Cell Distribution Width 13.2 % (11.5-14.5) Platelet Count 288 x10^3/uL (140-400) Neutrophils (%) (Auto) 85 % (31-73) Lymphocytes (%) (Auto) 9 % (24-48) Monocytes (%) (Auto) 5 % (0-9) Eosinophils (%) (Auto) 1 % (0-3) Basophils (%) (Auto) 0 % (0-3) Neutrophils # (Auto) 8.5 x10^3uL (1.8-7.7) Lymphocytes # (Auto) 0.9 x10^3/uL (1.0-4.8) Monocytes # (Auto) 0.5 x10^3/uL (0.0-1.1) Eosinophils # (Auto) 0.1 x10^3/uL (0.0-0.7) Basophils # (Auto) 0.0 x10^3/uL (0.0-0.2) Prothrombin Time 14.5 SEC (11.7-14.0) Prothromb Time International Ratio 1.2 (0.8-1.1) Activated Partial Thromboplast Time 42 SEC (24-38) Sodium Level 140 mmol/L (136-145) Potassium Level 4.6 mmol/L (3.5-5.1) Chloride Level 103 mmol/L (98-107) Carbon Dioxide Level 20 mmol/L (21-32) Anion Gap 17 (6-14) Blood Urea Nitrogen 53 mg/dL (8-26) Creatinine 3.8 mg/dL (0.7-1.3) Estimated GFR (Cockcroft-Gault) 15.4 BUN/Creatinine Ratio 14 (6-20) Glucose Level 191 mg/dL (70-99) Calcium Level 7.9 mg/dL (8.5-10.1) Magnesium Level 2.1 mg/dL (1.8-2.4) Total Bilirubin 0.4 mg/dL (0.2-1.0) Aspartate Amino Transf (AST/SGOT) 16 U/L (15-37) Alanine Aminotransferase (ALT/SGPT) 8 U/L (16-63) Alkaline Phosphatase 96 U/L (46-116) Ammonia 16 mcmol/L (11-34) Troponin I Quantitative < 0.017 ng/mL (0.000-0.055) FC-Gut-E-Type Natriuretic Peptide 487 pg/mL (0-449) Total Protein 6.5 g/dL (6.4-8.2) Albumin 2.4 g/dL (3.4-5.0) Albumin/Globulin Ratio 0.6 (1.0-1.7) Urine Collection Type U cath Urine Color Yellow Urine Clarity Clear Urine pH 5.5 Urine Specific [place] 1.025 Urine Protein >=300 mg/dL (NEG-TRACE) Urine Glucose (UA) 250 mg/dL (NEG) Urine Ketones (Stick) Negative mg/dL (NEG) Urine Blood Negative (NEG) Urine Nitrite Negative (NEG) Urine Bilirubin Negative (NEG) Urine Urobilinogen Dipstick 0.2 mg/dL (0.2 mg/dL) Urine Leukocyte Esterase Negative (NEG) Urine RBC 0 /HPF (0-2) Urine WBC 0 /HPF (0-4) Urine Squamous Epithelial Cells Few /LPF Urine Amorphous Sediment Present /HPF Urine Bacteria 0 /HPF (0-FEW) Urine Mucus Mod /LPF Urine Opiates Screen Neg (NEG) Urine Methadone Screen Neg (NEG) Urine Barbiturates Neg (NEG) Urine Phencyclidine Screen Neg (NEG) Urine Amphetamine/Methamphetamine Neg (NEG) Urine Benzodiazepines Screen Neg (NEG) Urine Cocaine Screen Neg (NEG) Urine Cannabinoids Screen Neg (NEG) Urine Ethyl Alcohol Neg (NEG) Laboratory Tests Test 02/07/19 01:40 02/07/19 01:44 02/07/19 02:25 02/07/19 07:35 Glucose (Fingerstick) 184 mg/dL (70-99) 83 mg/dL (70-99) White Blood Count 10.0 x10^3/uL (4.0-11.0) Red Blood Count 4.55 x10^6/uL (4.30-5.70) Hemoglobin 13.1 g/dL (13.0-17.5) Hematocrit 39.9 % (39.0-53.0) Mean Corpuscular Volume 88 fL (79-100) Mean Corpuscular Hemoglobin 29 pg (25-35) Mean Corpuscular Hemoglobin Concent 33 g/dL (31-37) Red Cell Distribution Width 13.2 % (11.5-14.5) Platelet Count 288 x10^3/uL (140-400) Neutrophils (%) (Auto) 85 % (31-73) Lymphocytes (%) (Auto) 9 % (24-48) Monocytes (%) (Auto) 5 % (0-9) Eosinophils (%) (Auto) 1 % (0-3) Basophils (%) (Auto) 0 % (0-3) Neutrophils # (Auto) 8.5 x10^3uL (1.8-7.7) Lymphocytes # (Auto) 0.9 x10^3/uL (1.0-4.8) Monocytes # (Auto) 0.5 x10^3/uL (0.0-1.1) Eosinophils # (Auto) 0.1 x10^3/uL (0.0-0.7) Basophils # (Auto) 0.0 x10^3/uL (0.0-0.2) Prothrombin Time 14.5 SEC (11.7-14.0) Prothromb Time International Ratio 1.2 (0.8-1.1) Activated Partial Thromboplast Time 42 SEC (24-38) Sodium Level 140 mmol/L (136-145) Potassium Level 4.6 mmol/L (3.5-5.1) Chloride Level 103 mmol/L (98-107) Carbon Dioxide Level 20 mmol/L (21-32) Anion Gap 17 (6-14) Blood Urea Nitrogen 53 mg/dL (8-26) Creatinine 3.8 mg/dL (0.7-1.3) Estimated GFR (Cockcroft-Gault) 15.4 BUN/Creatinine Ratio 14 (6-20) Glucose Level 191 mg/dL (70-99) Calcium Level 7.9 mg/dL (8.5-10.1) Magnesium Level 2.1 mg/dL (1.8-2.4) Total Bilirubin 0.4 mg/dL (0.2-1.0) Aspartate Amino Transf (AST/SGOT) 16 U/L (15-37) Alanine Aminotransferase (ALT/SGPT) 8 U/L (16-63) Alkaline Phosphatase 96 U/L (46-116) Ammonia 16 mcmol/L (11-34) Troponin I Quantitative < 0.017 ng/mL (0.000-0.055) FC-Xiq-X-Type Natriuretic Peptide 487 pg/mL (0-449) Total Protein 6.5 g/dL (6.4-8.2) Albumin 2.4 g/dL (3.4-5.0) Albumin/Globulin Ratio 0.6 (1.0-1.7) Urine Collection Type U cath Urine Color Yellow Urine Clarity Clear Urine pH 5.5 Urine Specific [place] 1.025 Urine Protein >=300 mg/dL (NEG-TRACE) Urine Glucose (UA) 250 mg/dL (NEG) Urine Ketones (Stick) Negative mg/dL (NEG) Urine Blood Negative (NEG) Urine Nitrite Negative (NEG) Urine Bilirubin Negative (NEG) Urine Urobilinogen Dipstick 0.2 mg/dL (0.2 mg/dL) Urine Leukocyte Esterase Negative (NEG) Urine RBC 0 /HPF (0-2) Urine WBC 0 /HPF (0-4) Urine Squamous Epithelial Cells Few /LPF Urine Amorphous Sediment Present /HPF Urine Bacteria 0 /HPF (0-FEW) Urine Mucus Mod /LPF Urine Opiates Screen Neg (NEG) Urine Methadone Screen Neg (NEG) Urine Barbiturates Neg (NEG) Urine Phencyclidine Screen Neg (NEG) Urine Amphetamine/Methamphetamine Neg (NEG) Urine Benzodiazepines Screen Neg (NEG) Urine Cocaine Screen Neg (NEG) Urine Cannabinoids Screen Neg (NEG) Urine Ethyl Alcohol Neg (NEG) VTE Prophylaxis Ordered VTE Prophylaxis Devices: No VTE Pharmacological Prophylaxi: No Assessment/Plan Assessment/Plan Pt is a 78yo CM admitted for LOC and fall 1)LOC- pt was able to recall details of the event. Has been having more falls, has had increased weakness. Has had diarrhea over the past week. Will have PT/ OT work with pt. Pt does appear dehydrated; getting hydration 2)Acute on CKD- 2/2 dehydration. Pt receiving IVF hydration. 3)PEM- severe 4)Diarrhea 5)HTN- BP elevated. Will resume pt's Diovan 160mg qday, lasix 20mg qday 6)Depression- pt normally on escitalopram, changed to citalopram 7)DM2- will continue pt's Glipizide 5mg XL. Will hold Januvia and have SSI available 8)Parkinson's- pt continued on Sinemet 9)Hypothyroidism- pt continued on levothyroxine 88mcg 10)HLD- pt continued on Atorvastatin 80mg VERO NINA MD Feb 07, 2019 08:48
[2019-02-07] MEDS: GABAPENTIN 100 MG CAPSULE. PO SCH ×3 (09:00→21:41)
[2019-02-07] MEDS: CITALOPRAM 10 MG TABLET. PO SCH ×2 (09:00→14:24)
[2019-02-07] MEDS: FUROSEMIDE 20 MG TABLET PO SCH ×2 (09:00→14:30)
[2019-02-07] MEDS: glipiZIDE ER 2.5 MG TAB.ER.24 PO SCH ×2 (09:00→14:24)
[2019-02-07] MEDS: ASPIRIN ENTERIC COATED 81 MG TABLET.DR. PO SCH ×2 (09:00→14:30)
[2019-02-07] MEDS: CYANOCOBALAMIN (VITAMIN B-12) 1,000 MCG TABLET. PO SCH (09:00)
[2019-02-07] MEDS: CARBIDOPA/LEVODOPA 25/100MG TABLET PO SCH ×3 (09:00→21:41)
[2019-02-07] MEDS: CLOPIDOGREL BISULFATE 75 MG TABLET PO SCH ×2 (09:00→14:30)
[2019-02-07] MEDS: LOSARTAN POTASSIUM 50 MG TABLET. PO SCH ×2 (09:00→14:30)
[2019-02-07] MEDS: LEVOTHYROXINE 88 MCG TABLET PO SCH ×2 (09:00→14:30)
--- NOTE | 2019-02-07 10:28 | RAD ---
EXAM: Lumbar spine, 3 views; thoracic spine, 3 views. HISTORY: Fall. Pain. COMPARISON: None. FINDINGS: Lumbar spine: 3 views of the lumbar spine are obtained. There is minimal grade 1 anterolisthesis of L4 and L5, measuring 2 mm. There is degenerative endplate remodeling and facet arthropathy at all levels. No fracture is seen. There is aortobiiliac atherosclerosis. Thoracic spine: 3 views of the thoracic spine are obtained. There is minimal thoracic curvature without significant scoliosis. There is no significant listhesis. The vertebral bodies are normal in height. There is degenerative endplate remodeling with major spurring throughout the of the thoracic levels. There are few small thoracic endplate Schmorl's nodes and minimal chronic appearing endplate depressions. There is evidence of prior CABG. IMPRESSION: 1. Mild multilevel degenerative change within the thoracic and lumbar spine. 2. Minimal grade 1 anterolisthesis of L4 and L5. 3. No acute osseous finding. Electronically signed by: Marine Barth MD (02/07/2019 10:26 AM) [id number]
[2019-02-07] MEDS: INSULIN LISPRO 300 UNITS/3 ML INSULN.PEN. SQ SCH ×2 (12:00→17:00)
--- NOTE | 2019-02-07 12:21 | PDOC2 ---
CONSULT Date of Consult Date of Consult DATE: 02/07/19 TIME: 12:17 Reason for Consult Reason for Consult: RJ Referring Physician Referring Physician: APOLINAR Identification/Chief Complaint Chief Complaint FALL Source Source: Chart review, Patient History of Present Illness Reason for Visit: THIS IS A 78 YR OLD WITH A FALL IN THE LAUNDRY ROOM. APPARENTLY PASSED OUT. PER EMS SBP IN THE 70'S. NOTED TO HAVE A CR OF 3.8 HERE. 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 CKD IS DUE TO DM II AND HTN HX. HE IS FEELING BETTER NOW. NO OTHER HX EXCEPT FOR SOME FREQUENCY AND NOCTURIA WHICH HAS BEEN CHRONIC. HYPOTENSION RESOLVED NOW Past Medical History Cardiovascular: CAD, CHF, HTN, Hyperlipidemia Pulmonary: COPD, Other CENTRAL NERVOUS SYSTEM: CVA, Other GI: Diverticulosis, Other Heme/Onc: No pertinent hx Hepatobiliary: No pertinent hx Psych: No pertinent hx Musculoskeletal: low back pain, Osteoarthritis Rheumatologic: No pertinent hx Infectious disease: No pertinent hx Renal/: Chronic renal insuff, Benign prostatic enlarg. Endocrine: Diabetes, Hypothyroidism Past Surgical History Past Surgical History: CABG, Tonsillectomy Family History Family History: Family History Unknown Social History ALCOHOL: none Lives: Alone Current Problem List Problem List Problems Medical Problems: (1) Acute kidney injury superimposed on chronic kidney disease Status: Acute (2) Altered mental status Status: Acute Current Medications Current Medications Current Medications Ondansetron HCl (Zofran) 4 mg PRN Q8HRS PRN IV NAUSEA/VOMITING 1ST CHOICE; Start 02/07/19 at 04:15; Stop 02/08/19 at 04:14 Sodium Chloride 1,000 ml @ 125 mls/hr Q8H IV Last administered on 02/07/19at 05 :47; Start 02/07/19 at 04:30; Stop 02/08/19 at 04:29 Aspirin (Ecotrin) 81 mg DAILY PO ; Start 02/07/19 at 09:00 Clopidogrel Bisulfate (Plavix) 75 mg DAILY PO ; Start 02/07/19 at 09:00 Cyanocobalamin (Vitamin B-12) 1,000 mcg DAILY PO ; Start 02/07/19 at 09:00 Furosemide (Lasix) 20 mg DAILY PO ; Start 02/07/19 at 09:00 Gabapentin (Neurontin) 200 mg TID PO ; Start 02/07/19 at 09:00 Levothyroxine Sodium (Synthroid) 88 mcg DAILY06 PO ; Start 02/07/19 at 09:00 Atorvastatin Calcium (Lipitor) 80 mg QHS PO ; Start 02/07/19 at 21:00 Carbidopa/Levodopa (Sinemet 25/100) 2 tab TID PO ; Start 02/07/19 at 09:00 Citalopram Hydrobromide (CeleXA) 15 mg DAILY PO ; Start 02/07/19 at 09:00 Glipizide (Glucotrol Er) 5 mg DAILY08 PO ; Start 02/07/19 at 09:00 Losartan Potassium (Cozaar) 50 mg DAILY PO ; Start 02/07/19 at 09:00 Insulin Human Lispro (HumaLOG) 0-5 UNITS TIDWMEALS SQ ; Start 02/07/19 at 12:00 Dextrose (Dextrose 50%-Water Syringe) 12.5 gm PRN Q15MIN PRN IV SEE COMMENTS; Start 02/07/19 at 08:15 Active Scripts Active Atorvastatin Calcium 80 Mg Tablet 1 Tab PO DAILY Levothyroxine Sodium 88 Mcg Tablet 1 Tab PO DAILY Meclizine Hcl 25 Mg Tablet 25 Mg PO PRN TID PRN dizziness Glipizide Er (Glipizide) 5 Mg Tab.er.24 1 Tab PO DAILY Januvia (Sitagliptin Phosphate) 50 Mg Tablet 1 Tab PO DAILY Furosemide 20 Mg Tablet 20 Mg PO DAILY 30 Days Reported NITROGLYCERIN SubLingual (Nitroglycerin) 0.4 Mg Tab.subl 0.4 Mg SL PRN Q5MIN PRN Vitamin D (Cholecalciferol (Vitamin D3)) 50,000 Unit Capsule 50,000 Unit PO WEEKLY Sinemet Cr 50-200 Tablet (Carbidopa/Levodopa) 1 Each Tablet.er 2 Tab PO TID Vitamin B-12 (Cyanocobalamin (Vitamin B-12)) 1,000 Mcg Tablet 1 Tab PO DAILY Escitalopram Oxalate 10 Mg Tablet 15 Mg PO DAILY Aspirin Ec (Aspirin) 81 Mg Tablet.dr 81 Mg PO Gabapentin (Gabapentin) 100 Mg Capsule 200 Mg PO TID Klonopin (Clonazepam) 0.5 Mg Tablet 0.5 Mg PO TID Plavix (Clopidogrel Bisulfate) 75 Mg Tablet 1 Tab PO DAILY Diovan (Valsartan) 160 Mg Tablet 1 Tab PO DAILY Allergies Allergies: Coded Allergies: No Known Drug Allergies (Unverified , 06/17/15) ROS General: YES: Fatigue PSYCHOLOGICAL ROS: YES: Anxiety Eyes: Yes Decreased vision HEENT: YES: [place] ALLERGY AND IMMUNOLOGY: YES: Seasonal Allergies Respiratory: YES: Cough Cardiovascular: yes Lt Headedness Gastrointestinal: Yes Constipation Musculoskeletal: Yes Muscular Weakness Neurological: Yes Dizziness, Yes Tremors, Yes Weakness Skin: Yes Dry Skin Physical Exam General: Alert, Oriented X3, Cooperative, No acute distress HEENT: Atraumatic, PERRLA, EOMI, Mucous membr. moist/pink Lungs: Clear to auscultation, Normal air movement Heart: Regular rate Abdomen: Normal bowel sounds, Soft, No tenderness Extremities: No cyanosis Skin: No breakdown, No significant lesion Neuro: Other (STUTTERED SPEECH AND TREMORS ARE CHRONIC) Vitals VITALS Vital Signs Date Time Temp Pulse Resp B/P (MAP) Pulse Ox O2 Delivery O2 Flow Rate FiO2 02/07/19 12:14 98.5 59 156/60 (92) 96 Nasal Cannula 2.0 98.5 02/07/19 11:00 16 Labs Labs Laboratory Tests Test 02/07/19 01:40 02/07/19 01:44 02/07/19 02:25 02/07/19 07:35 Glucose (Fingerstick) 184 mg/dL (70-99) 83 mg/dL (70-99) White Blood Count 10.0 x10^3/uL (4.0-11.0) Red Blood Count 4.55 x10^6/uL (4.30-5.70) Hemoglobin 13.1 g/dL (13.0-17.5) Hematocrit 39.9 % (39.0-53.0) Mean Corpuscular Volume 88 fL (79-100) Mean Corpuscular Hemoglobin 29 pg (25-35) Mean Corpuscular Hemoglobin Concent 33 g/dL (31-37) Red Cell Distribution Width 13.2 % (11.5-14.5) Platelet Count 288 x10^3/uL (140-400) Neutrophils (%) (Auto) 85 % (31-73) Lymphocytes (%) (Auto) 9 % (24-48) Monocytes (%) (Auto) 5 % (0-9) Eosinophils (%) (Auto) 1 % (0-3) Basophils (%) (Auto) 0 % (0-3) Neutrophils # (Auto) 8.5 x10^3uL (1.8-7.7) Lymphocytes # (Auto) 0.9 x10^3/uL (1.0-4.8) Monocytes # (Auto) 0.5 x10^3/uL (0.0-1.1) Eosinophils # (Auto) 0.1 x10^3/uL (0.0-0.7) Basophils # (Auto) 0.0 x10^3/uL (0.0-0.2) Prothrombin Time 14.5 SEC (11.7-14.0) Prothromb Time International Ratio 1.2 (0.8-1.1) Activated Partial Thromboplast Time 42 SEC (24-38) Sodium Level 140 mmol/L (136-145) Potassium Level 4.6 mmol/L (3.5-5.1) Chloride Level 103 mmol/L (98-107) Carbon Dioxide Level 20 mmol/L (21-32) Anion Gap 17 (6-14) Blood Urea Nitrogen 53 mg/dL (8-26) Creatinine 3.8 mg/dL (0.7-1.3) Estimated GFR (Cockcroft-Gault) 15.4 BUN/Creatinine Ratio 14 (6-20) Glucose Level 191 mg/dL (70-99) Calcium Level 7.9 mg/dL (8.5-10.1) Magnesium Level 2.1 mg/dL (1.8-2.4) Total Bilirubin 0.4 mg/dL (0.2-1.0) Aspartate Amino Transf (AST/SGOT) 16 U/L (15-37) Alanine Aminotransferase (ALT/SGPT) 8 U/L (16-63) Alkaline Phosphatase 96 U/L (46-116) Ammonia 16 mcmol/L (11-34) Troponin I Quantitative < 0.017 ng/mL (0.000-0.055) RF-Txk-Z-Type Natriuretic Peptide 487 pg/mL (0-449) Total Protein 6.5 g/dL (6.4-8.2) Albumin 2.4 g/dL (3.4-5.0) Albumin/Globulin Ratio 0.6 (1.0-1.7) Urine Collection Type U cath Urine Color Yellow Urine Clarity Clear Urine pH 5.5 Urine Specific [place] 1.025 Urine Protein >=300 mg/dL (NEG-TRACE) Urine Glucose (UA) 250 mg/dL (NEG) Urine Ketones (Stick) Negative mg/dL (NEG) Urine Blood Negative (NEG) Urine Nitrite Negative (NEG) Urine Bilirubin Negative (NEG) Urine Urobilinogen Dipstick 0.2 mg/dL (0.2 mg/dL) Urine Leukocyte Esterase Negative (NEG) Urine RBC 0 /HPF (0-2) Urine WBC 0 /HPF (0-4) Urine Squamous Epithelial Cells Few /LPF Urine Amorphous Sediment Present /HPF Urine Bacteria 0 /HPF (0-FEW) Urine Mucus Mod /LPF Urine Opiates Screen Neg (NEG) Urine Methadone Screen Neg (NEG) Urine Barbiturates Neg (NEG) Urine Phencyclidine Screen Neg (NEG) Urine Amphetamine/Methamphetamine Neg (NEG) Urine Benzodiazepines Screen Neg (NEG) Urine Cocaine Screen Neg (NEG) Urine Cannabinoids Screen Neg (NEG) Urine Ethyl Alcohol Neg (NEG) Test 02/07/19 11:47 Glucose (Fingerstick) 79 mg/dL (70-99) Laboratory Tests Test 02/07/19 01:40 02/07/19 01:44 02/07/19 02:25 02/07/19 07:35 Glucose (Fingerstick) 184 mg/dL (70-99) 83 mg/dL (70-99) White Blood Count 10.0 x10^3/uL (4.0-11.0) Red Blood Count 4.55 x10^6/uL (4.30-5.70) Hemoglobin 13.1 g/dL (13.0-17.5) Hematocrit 39.9 % (39.0-53.0) Mean Corpuscular Volume 88 fL (79-100) Mean Corpuscular Hemoglobin 29 pg (25-35) Mean Corpuscular Hemoglobin Concent 33 g/dL (31-37) Red Cell Distribution Width 13.2 % (11.5-14.5) Platelet Count 288 x10^3/uL (140-400) Neutrophils (%) (Auto) 85 % (31-73) Lymphocytes (%) (Auto) 9 % (24-48) Monocytes (%) (Auto) 5 % (0-9) Eosinophils (%) (Auto) 1 % (0-3) Basophils (%) (Auto) 0 % (0-3) Neutrophils # (Auto) 8.5 x10^3uL (1.8-7.7) Lymphocytes # (Auto) 0.9 x10^3/uL (1.0-4.8) Monocytes # (Auto) 0.5 x10^3/uL (0.0-1.1) Eosinophils # (Auto) 0.1 x10^3/uL (0.0-0.7) Basophils # (Auto) 0.0 x10^3/uL (0.0-0.2) Prothrombin Time 14.5 SEC (11.7-14.0) Prothromb Time International Ratio 1.2 (0.8-1.1) Activated Partial Thromboplast Time 42 SEC (24-38) Sodium Level 140 mmol/L (136-145) Potassium Level 4.6 mmol/L (3.5-5.1) Chloride Level 103 mmol/L (98-107) Carbon Dioxide Level 20 mmol/L (21-32) Anion Gap 17 (6-14) Blood Urea Nitrogen 53 mg/dL (8-26) Creatinine 3.8 mg/dL (0.7-1.3) Estimated GFR (Cockcroft-Gault) 15.4 BUN/Creatinine Ratio 14 (6-20) Glucose Level 191 mg/dL (70-99) Calcium Level 7.9 mg/dL (8.5-10.1) Magnesium Level 2.1 mg/dL (1.8-2.4) Total Bilirubin 0.4 mg/dL (0.2-1.0) Aspartate Amino Transf (AST/SGOT) 16 U/L (15-37) Alanine Aminotransferase (ALT/SGPT) 8 U/L (16-63) Alkaline Phosphatase 96 U/L (46-116) Ammonia 16 mcmol/L (11-34) Troponin I Quantitative < 0.017 ng/mL (0.000-0.055) AT-Pmt-Y-Type Natriuretic Peptide 487 pg/mL (0-449) Total Protein 6.5 g/dL (6.4-8.2) Albumin 2.4 g/dL (3.4-5.0) Albumin/Globulin Ratio 0.6 (1.0-1.7) Urine Collection Type U cath Urine Color Yellow Urine Clarity Clear Urine pH 5.5 Urine Specific [place] 1.025 Urine Protein >=300 mg/dL (NEG-TRACE) Urine Glucose (UA) 250 mg/dL (NEG) Urine Ketones (Stick) Negative mg/dL (NEG) Urine Blood Negative (NEG) Urine Nitrite Negative (NEG) Urine Bilirubin Negative (NEG) Urine Urobilinogen Dipstick 0.2 mg/dL (0.2 mg/dL) Urine Leukocyte Esterase Negative (NEG) Urine RBC 0 /HPF (0-2) Urine WBC 0 /HPF (0-4) Urine Squamous Epithelial Cells Few /LPF Urine Amorphous Sediment Present /HPF Urine Bacteria 0 /HPF (0-FEW) Urine Mucus Mod /LPF Urine Opiates Screen Neg (NEG) Urine Methadone Screen Neg (NEG) Urine Barbiturates Neg (NEG) Urine Phencyclidine Screen Neg (NEG) Urine Amphetamine/Methamphetamine Neg (NEG) Urine Benzodiazepines Screen Neg (NEG) Urine Cocaine Screen Neg (NEG) Urine Cannabinoids Screen Neg (NEG) Urine Ethyl Alcohol Neg (NEG) Test 02/07/19 11:47 Glucose (Fingerstick) 79 mg/dL (70-99) Assessment/Plan Assessment/Plan IMP RJ WITH CR OF 3.8 CKD STAGE 4 WITH CR OF 2.4 AT BASELINE FALL/SYNCOPE HYPOTENSION DM II HTN PLAN HYDRATION IF CR NO BETTER IN AM THEN RENAL SONOGRAM HOLD HIS DIOVAN WORK UP SYNCOPE WILL FOLLOW MELBA FARRELL MD Feb 07, 2019 12:21
--- NOTE | 2019-02-07 12:43 | NUR ---
SW responding to a referral regarding pt is from [facility]. SW confirmed with facillity pt is [place] resident. PT currently pending. SW will await for PT recommendation to eval skilled needs. Will continue to follow.
--- NOTE | 2019-02-07 16:22 | NUR ---
Wound care: Patient seen per wound care consult. See wound assessment. Patient has one open wound to midline back from a recent fall. Wound is cleansed and assessed. Recommendations for xeroform gauze and foam dressing. Dressing applied and patient tolerated well. No other wounds noted upon complete head to toe assessment. Dressing change instructions left in room. Patient in chair at this time and feet elevated. Call light in reach. Will follow regarding wound care.
[2019-02-07] MEDS: ATORVASTATIN CALCIUM 40 MG TABLET. PO SCH (21:41)
[2019-02-08] VITALS (8 sets, daily range): BP systolic 111–170; BP diastolic 52–85
[2019-02-08 04:49] LABS: BASO % 1 % (0-3); EOS # 0.1 x10^3/uL (0.0-0.7); EOS % 3 % (0-3); HEMATOCRIT 36.7 % (39.0-53.0); LYMPH # 0.9 x10^3/uL (1.0-4.8); LYMPH % 20 % (24-48); MEAN CORPUSCULAR HEMOGLOBIN 29 pg (25-35); MEAN CORPUSCULAR HGB CONC 33 g/dL (31-37); MEAN CORPUSCULAR VOLUME 88 fL (79-100); MONO # 0.4 x10^3/uL (0.0-1.1); MONO % 9 % (0-9); NEUT # 2.8 x10^3uL (1.8-7.7); NEUT % 67 % (31-73); PLATELET COUNT 243 x10^3/uL (140-400); RED BLOOD COUNT 4.17 x10^6/uL (4.30-5.70); RED CELL DISTRIBUTION WIDTH 13.2 % (11.5-14.5); WHITE BLOOD COUNT 4.2 x10^3/uL (4.0-11.0)
[2019-02-08 05:22] LABS: CALCIUM 7.9 mg/dL (8.5-10.1); CREATININE 3.1 mg/dL (0.7-1.3); GFR 19.5; POTASSIUM 4.7 mmol/L (3.5-5.1)
[2019-02-08] MEDS: LEVOTHYROXINE 88 MCG TABLET PO SCH (07:26)
--- NOTE | 2019-02-08 07:31 | PDOC ---
SUBJECTIVE Subjective Pt says that he is doing well. States that he remembers meeting me yesterday but now he is saying he doesn't remember all the events leading up to his hospitalization. He does not remember falling OBJECTIVE Vital Signs Vital Signs Date Time Temp Pulse Resp B/P (MAP) Pulse Ox O2 Delivery O2 Flow Rate FiO2 02/08/19 03:00 97.6 57 17 139/53 (81) 98 Nasal Cannula 2.0 97.6 02/07/19 23:00 97.6 56 17 142/61 (88) 97 Nasal Cannula 2.0 97.6 02/07/19 20:10 Nasal Cannula 2.0 02/07/19 19:00 97.4 62 17 150/55 (86) 96 Nasal Cannula 2.0 97.4 02/07/19 15:00 97.5 113 17 115/62 (79) 97 Nasal Cannula 2.0 97.5 02/07/19 14:30 59 156/60 02/07/19 12:14 98.5 59 156/60 (92) 96 Nasal Cannula 2.0 98.5 02/07/19 11:00 98.5 59 16 156/60 (92) 96 Nasal Cannula 98.5 02/07/19 08:00 Nasal Cannula 2.0 I & O Intake and Output 02/08/19 07:00 Intake Total 180 ml Output Total 200 ml Balance -20 ml Intake Oral 180 ml Output Urine Total 200 ml # Voids 2 PHYSICAL EXAM Physical Exam GEN.: No apparent distress. Alert and oriented. tired HEENT: Head is normocephalic, atraumatic NECK: Supple. LUNGS: Clear to auscultation. HEART: RRR, S1, S2 present. Peripheral pulses intact ABDOMEN: Soft, nontender. Positive bowel sounds. EXTREMITIES: Without any cyanosis. NEUROLOGIC: Normal speech, normal tone PSYCHIATRIC: Normal affect, normal mood. SKIN: No ulcerations ASSESSMENT/PLAN Assessment/Plan Pt is a 78yo CM admitted for LOC and fall 1)Syncopal event- today pt states he does not remember falling. Will have Cardiology see patient. Has been having more falls, has had increased weakness. Has been having diarrhea over the past week. PT/OT has seen and is recommending SNU; pt is agreeable. Pt appeared dehydrated on admission; s/p IVF hydration 2)Acute on CKD- 2/2 dehydration. Cr improving with hydration from 3.8 to 3.1 Renal following 3)PEM- severe 4)Diarrhea 5)HTN- BP elevated. Diovan currently held by Renal, receiving Lasix 20mg qday 6)Depression- pt normally on escitalopram, changed to citalopram 7)DM2- hypoglycemic this morning, will give pt 1/2 his dose of Glipizide 5mg XL. Januvia was already being held. Has SSI available 8)Parkinson's- pt continued on Sinemet 9)Hypothyroidism- pt continued on levothyroxine 88mcg 10)HLD- pt continued on Atorvastatin 80mg COMMENT Lab Laboratory Tests Test 02/07/19 07:35 02/07/19 11:47 02/07/19 16:41 02/07/19 20:40 Glucose (Fingerstick) 83 mg/dL (70-99) 79 mg/dL (70-99) 137 mg/dL (70-99) 169 mg/dL (70-99) Test 02/08/19 04:05 White Blood Count 4.2 x10^3/uL (4.0-11.0) Red Blood Count 4.17 x10^6/uL (4.30-5.70) Hemoglobin 12.0 g/dL (13.0-17.5) Hematocrit 36.7 % (39.0-53.0) Mean Corpuscular Volume 88 fL (79-100) Mean Corpuscular Hemoglobin 29 pg (25-35) Mean Corpuscular Hemoglobin Concent 33 g/dL (31-37) Red Cell Distribution Width 13.2 % (11.5-14.5) Platelet Count 243 x10^3/uL (140-400) Neutrophils (%) (Auto) 67 % (31-73) Lymphocytes (%) (Auto) 20 % (24-48) Monocytes (%) (Auto) 9 % (0-9) Eosinophils (%) (Auto) 3 % (0-3) Basophils (%) (Auto) 1 % (0-3) Neutrophils # (Auto) 2.8 x10^3uL (1.8-7.7) Lymphocytes # (Auto) 0.9 x10^3/uL (1.0-4.8) Monocytes # (Auto) 0.4 x10^3/uL (0.0-1.1) Eosinophils # (Auto) 0.1 x10^3/uL (0.0-0.7) Basophils # (Auto) 0.0 x10^3/uL (0.0-0.2) Sodium Level 142 mmol/L (136-145) Potassium Level 4.7 mmol/L (3.5-5.1) Chloride Level 107 mmol/L (98-107) Carbon Dioxide Level 26 mmol/L (21-32) Anion Gap 9 (6-14) Blood Urea Nitrogen 46 mg/dL (8-26) Creatinine 3.1 mg/dL (0.7-1.3) Estimated GFR (Cockcroft-Gault) 19.5 Glucose Level 65 mg/dL (70-99) Calcium Level 7.9 mg/dL (8.5-10.1) VERO NINA MD Feb 08, 2019 07:31
[2019-02-08] MEDS: INSULIN LISPRO 300 UNITS/3 ML INSULN.PEN. SQ SCH ×3 (08:00→16:55)
[2019-02-08] MEDS: CARBIDOPA/LEVODOPA 25/100MG TABLET PO SCH ×3 (09:07→21:31)
[2019-02-08] MEDS: ASPIRIN ENTERIC COATED 81 MG TABLET.DR. PO SCH (09:07)
[2019-02-08] MEDS: CYANOCOBALAMIN (VITAMIN B-12) 1,000 MCG TABLET. PO SCH (09:07)
[2019-02-08] MEDS: FUROSEMIDE 20 MG TABLET PO SCH (09:07)
[2019-02-08] MEDS: LOSARTAN POTASSIUM 50 MG TABLET. PO SCH (09:07)
[2019-02-08] MEDS: CLOPIDOGREL BISULFATE 75 MG TABLET PO SCH (09:07)
[2019-02-08] MEDS: GABAPENTIN 100 MG CAPSULE. PO SCH ×3 (09:07→21:31)
[2019-02-08] MEDS: glipiZIDE ER 2.5 MG TAB.ER.24 PO SCH (10:16)
--- NOTE | 2019-02-08 10:26 | EKG ---
[facility] [address] [place] [address] Test Date: 2019-02-08 Test Time: 10:18:22 Pat Name: TALIA JENNINGS Department: Room: 530 1 Gender: M Service Captain: : 1940 Requested By: DIMPLE EMERSON Order Number: [id number] Reading MD: Jose Valdivia MD Measurements Intervals [place] Rate: 61 P: 50 AR: 214 QRS: 7 QRSD: 128 T: 46 QT: 452 QTc: 457 Interpretive Statements SINUS RHYTHM RIGHT BUNDLE BRANCH BLOCK Electronically Signed On 02-08-2019 16:40:33 CDT by Jose Valdivia MD
--- NOTE | 2019-02-08 10:27 | PDOC2 ---
DIMPLE EMERSON TYPESETTER PERFORATOR OPERATOR 02/08/19 1027: CARDIAC CONSULT DATE OF CONSULT Date of Consult DATE: 02/08/19 TIME: 10:02 REASON FOR CONSULT Reason for Consult: Syncope REFERRING PHYSICIAN Referring Physician: Frank SOURCE Source: Chart review, Patient HISTORY OF PRESENT ILLNESS HISTORY OF PRESENT ILLNESS This is a pleasant 78 yo male admitted for complains of passing out. Reports that he lives in an assisting living facility and he was in the laundry room when the event happened. He was trying to put his clothes in the washer and thats the last thing he remembered. When he woke up he was on the floor. He sustained a back abrasion otherwise the fall was nontraumatic. Denies feeling any palpitations, nausea, visual or auditory disturbances nor chest pain or SOA and diaphoresis prior to passing out. No reports of vertigo. No prior fall or passing out. No hx of arrhythmias. He did do well with ambulation with PT without difficulty or symptoms. PAST MEDICAL HISTORY Cardiovascular: CAD, HTN, Hyperlipidemia Pulmonary: COPD CENTRAL NERVOUS SYSTEM: Other (parkinsons) GI: No pertinent hx Heme/Onc: No pertinent hx Hepatobiliary: No pertinent hx Psych: No pertinent hx Musculoskeletal: Osteoarthritis Renal/: No pertinent hx Endocrine: Diabetes (2), Hypothyroidism Dermatology: No pertinent hx PAST SURGICAL HISTORY Past Surgical History: CABG (2003), Hernia Repair (umbilical) FAMILY HISTORY Family History noncontributory to CV SOCIAL HISTORY Smoke: Quit (in 2003 30 pk yr) ALCOHOL: none Drugs: None Lives: Alone (assisted living) CURRENT MEDICATIONS CURRENT MEDICATIONS Current Medications Medications (Trade) Dose Ordered Sig/Kristie Route PRN Reason Start Time Stop Time Status Last Admin Dose Admin Atorvastatin Calcium (Lipitor) 80 mg QHS PO 02/07/19 21:00 02/07/19 21:41 ALLERGIES ALLERGIES: Coded Allergies: No Known Drug Allergies (Unverified , 06/17/15) ROS Review of System 14 point ROS evaluated with pertinent positives noted per HPI PHYSICAL EXAM General: Alert, Oriented X3, Cooperative, No acute distress HEENT: Atraumatic, Mucous membr. moist/pink Lungs: Clear to auscultation, Normal air movement Heart: Regular rate, Other (BROOK systolic murmur) Abdomen: Soft, No tenderness Skin: No breakdown, Other (mid back abrasion) Neuro: Normal speech, Sensation intact Psych/Mental Status: Mental status NL, Mood NL MUSCULOSKELETAL: Osteoarthritic changes both hands VITALS VITALS Vital Signs Date Time Temp Pulse Resp B/P (MAP) Pulse Ox O2 Delivery O2 Flow Rate FiO2 02/08/19 09:07 60 162/60 02/08/19 07:32 Nasal Cannula 2.0 02/08/19 07:00 97.6 18 96 97.6 LABS Lab: Laboratory Tests Test 02/07/19 11:47 02/07/19 16:41 02/07/19 20:40 02/08/19 04:05 Glucose (Fingerstick) 79 mg/dL (70-99) 137 mg/dL (70-99) 169 mg/dL (70-99) White Blood Count 4.2 x10^3/uL (4.0-11.0) Red Blood Count 4.17 x10^6/uL (4.30-5.70) Hemoglobin 12.0 g/dL (13.0-17.5) Hematocrit 36.7 % (39.0-53.0) Mean Corpuscular Volume 88 fL (79-100) Mean Corpuscular Hemoglobin 29 pg (25-35) Mean Corpuscular Hemoglobin Concent 33 g/dL (31-37) Red Cell Distribution Width 13.2 % (11.5-14.5) Platelet Count 243 x10^3/uL (140-400) Neutrophils (%) (Auto) 67 % (31-73) Lymphocytes (%) (Auto) 20 % (24-48) Monocytes (%) (Auto) 9 % (0-9) Eosinophils (%) (Auto) 3 % (0-3) Basophils (%) (Auto) 1 % (0-3) Neutrophils # (Auto) 2.8 x10^3uL (1.8-7.7) Lymphocytes # (Auto) 0.9 x10^3/uL (1.0-4.8) Monocytes # (Auto) 0.4 x10^3/uL (0.0-1.1) Eosinophils # (Auto) 0.1 x10^3/uL (0.0-0.7) Basophils # (Auto) 0.0 x10^3/uL (0.0-0.2) Sodium Level 142 mmol/L (136-145) Potassium Level 4.7 mmol/L (3.5-5.1) Chloride Level 107 mmol/L (98-107) Carbon Dioxide Level 26 mmol/L (21-32) Anion Gap 9 (6-14) Blood Urea Nitrogen 46 mg/dL (8-26) Creatinine 3.1 mg/dL (0.7-1.3) Estimated GFR (Cockcroft-Gault) 19.5 Glucose Level 65 mg/dL (70-99) Calcium Level 7.9 mg/dL (8.5-10.1) Thyroid Stimulating Hormone (TSH) 0.071 uIU/mL (0.358-3.74) Test 02/08/19 07:57 Glucose (Fingerstick) 66 mg/dL (70-99) ECHOCARDIOGRAM ECHOCARDIOGRAM <Conclusion> Left ventricle systolic function is normal. The Ejection Fraction is 55%. Transmitral Doppler flow pattern is Grade II-pseudonormal filling dynamics. There is mild concentric left ventricular hypertrophy. The left atrium is mildly dilated. The right atrium size is normal. The aortic valve is calcified but opens well. Doppler and Color-flow revealed trace mitral regurgitation. The mitral valve is calcified but opens well. Doppler and Color Flow revealed mild tricuspid regurgitation. There is no pulmonary hypertension. The PA pressure was estimated at 23 mmHg. Doppler and Color Flow revealed mild pulmonic valvular regurgitation. The pulmonic valve is mildly thickened. Small to moderate pleural effusion located inferiorly to IVC. There is no evidence of significant pericardial effusion. DATE: 10/04/17 1712 ASSESSMENT/PLAN ASSESSMENT/PLAN 1. Syncope with nontraumatic fall. Unclear currently but orthostasis and CSH are possibilities 2. Arrhythmia: paroxysmal atrial flutter/afib rather than first degree AV block. Chronic RBBB. 3. Parkinsons 4. CAD; 2004 CABG. clinically stable 5. HTN: controlled 6. DM2/HLP 7. Hypothyroidism: TSH at 0.07 with replacement defer to PCP 8. CKD4? Recommendations 1. HR decreased to 38 from 60 with CS massage with dizziness but no pauses. Carotid doppler today 2. No AV jake blocking agents currently Monitor BP trend and if remains labile then norvasc. 3. ARB ok with nephrology. 4. Repeat EKG. TTE today. Continue secondary prevention measures. ASA/plavix in placed. Monitor rhythm. 5. Check orthostatic readings. Consider for outpt event monitor. TIAN CHARLES MD 02/08/19 1642: CARDIAC CONSULT ASSESSMENT/PLAN ASSESSMENT/PLAN Pt. seen and examined. Agree with above FISH WORM GROWER note. No clear arrhythmias thus far on tele. It appears to definitely be a syncopal event With multiple falls and mild signs of tachy-gisell on the monitor, would not be a classic indication for pacer but would definitely be a consideration Echo wnl. Continue overnight tele monitoring. Will ambulate and see HR response and also repeat carotid massage in a.m. to see if he is safe to leave prior to pacer. If ok, then DC with outpt monitor, if not, then plan for pacer on monday. DIMPLE EMERSON APRN Feb 08, 2019 10:27 TIAN CHARLES MD Feb 08, 2019 16:42
--- NOTE | 2019-02-08 10:47 | NUR ---
SW following pt. PT recommends SNU. Spoke with pt at bedside about SNU options and medicare star ratings. Pt agreeable with [facility]. Pt requested SW to notify his DPOA, Catia Mata, phone: [phone] about plans. SW attempted to call but phone keeps ringing with no option to leave voice mail. GINA phoned and faxed referral to [facility]. Pt admission and acceptance pending. Discussed with RN. Will continue to follow.
--- NOTE | 2019-02-08 11:02 | PDOC ---
Renal-Progress Notes Subjective Notes Notes FEELING BETTER History of Present Illness Hx of present illness IMPROVED Vitals Vitals Vital Signs Date Time Temp Pulse Resp B/P (MAP) Pulse Ox O2 Delivery O2 Flow Rate FiO2 02/08/19 09:07 60 162/60 02/08/19 07:32 Nasal Cannula 2.0 02/08/19 07:00 97.6 18 96 97.6 Weight Weight [ ] I.O. Intake and Output Intake and Output 02/08/19 07:00 Intake Total 1180 ml Output Total 200 ml Balance 980 ml Intake Oral 180 ml IV Total 1000 ml Output Urine Total 200 ml # Voids 2 Labs Labs Laboratory Tests Test 02/07/19 11:47 02/07/19 16:41 02/07/19 20:40 02/08/19 04:05 Glucose (Fingerstick) 79 mg/dL (70-99) 137 mg/dL (70-99) 169 mg/dL (70-99) White Blood Count 4.2 x10^3/uL (4.0-11.0) Red Blood Count 4.17 x10^6/uL (4.30-5.70) Hemoglobin 12.0 g/dL (13.0-17.5) Hematocrit 36.7 % (39.0-53.0) Mean Corpuscular Volume 88 fL (79-100) Mean Corpuscular Hemoglobin 29 pg (25-35) Mean Corpuscular Hemoglobin Concent 33 g/dL (31-37) Red Cell Distribution Width 13.2 % (11.5-14.5) Platelet Count 243 x10^3/uL (140-400) Neutrophils (%) (Auto) 67 % (31-73) Lymphocytes (%) (Auto) 20 % (24-48) Monocytes (%) (Auto) 9 % (0-9) Eosinophils (%) (Auto) 3 % (0-3) Basophils (%) (Auto) 1 % (0-3) Neutrophils # (Auto) 2.8 x10^3uL (1.8-7.7) Lymphocytes # (Auto) 0.9 x10^3/uL (1.0-4.8) Monocytes # (Auto) 0.4 x10^3/uL (0.0-1.1) Eosinophils # (Auto) 0.1 x10^3/uL (0.0-0.7) Basophils # (Auto) 0.0 x10^3/uL (0.0-0.2) Sodium Level 142 mmol/L (136-145) Potassium Level 4.7 mmol/L (3.5-5.1) Chloride Level 107 mmol/L (98-107) Carbon Dioxide Level 26 mmol/L (21-32) Anion Gap 9 (6-14) Blood Urea Nitrogen 46 mg/dL (8-26) Creatinine 3.1 mg/dL (0.7-1.3) Estimated GFR (Cockcroft-Gault) 19.5 Glucose Level 65 mg/dL (70-99) Calcium Level 7.9 mg/dL (8.5-10.1) Thyroid Stimulating Hormone (TSH) 0.071 uIU/mL (0.358-3.74) Test 02/08/19 07:57 Glucose (Fingerstick) 66 mg/dL (70-99) Review of Systems Constitutional: yes: alert, oriented Ears/Nose/Throat: Yes: no symptom reported Eyes: Yes: no symptom reported Pulmonary: Yes no symptom reported Cardiovascular: Yes no symptom reported Gastrointestional: Yes: no symptom reported Genitourinary: Yes: no symptom reported Musculoskeletal: Yes: no symptom reported Skin: Yes no symptom reported Psychiatric/Neurological: Yes: no symptom reported Endocrine: Yes: no symptom reported Physical Exam General Appearance: no apparent distress Skin: warm Respiratory: decreased breath sounds Heart: S1S2 Abdomen: soft, bowel sounds present Genitourinary: bladder flat Extremities: pulses present Neurology: alert Musculoskeletal: Osteoarthritis Assessment Assessment IMP RJ BETTER WITH CR DOWN TO 3.1 CKD STAGE 4 WITH CR OF 2.4 AT BASELINE FALL/SYNCOPE HYPOTENSION-RESOLVED DM II HTN PARKINSON'S PLAN OFF IVF'S IF CR NO BETTER IN AM THEN RENAL SONOGRAM DIOVAN RESUMED WORK UP SYNCOPE ONGOING BY CARDIOLOGY WILL FOLLOW MELBA FARRELL MD Feb 08, 2019 11:02
--- NOTE | 2019-02-08 11:10 | CARD ---
MR#: [id number] Date of Study: 02/08/2019 Ordering Physician: DIMPLE EMERSON, Referring Physician: KESHIA JIANG Tech: Marielena Estrella JANA APPROVED REPORT EXAM: Two-dimensional and M-mode echocardiogram with Doppler and color Doppler. Other Information Quality : AverageHR: 55bpm Rhythm : Bradycardia INDICATION Syncope 2D DIMENSIONS RVDd3.5 (2.9-3.5cm)Left Atrium(2D)3.3 (1.6-4.0cm) IVSd1.3 (0.7-1.1cm)Aortic Root(2D)3.4 (2.0-3.7cm) LVDd3.9 (3.9-5.9cm)LVOT Diameter1.9 (1.8-2.4cm) PWd1.0 (0.7-1.1cm)LVDs2.6 (2.5-4.0cm) FS (%) 33.7 %SV41.4 ml LVEF(%)63.2 (>50%) M-Mode DIMENSIONS Left Atrium(MM)3.38 (2.5-4.0cm)Aortic Root3.68 (2.2-3.7cm) Aortic Valve AoV Peak Stephen.116.3cm/sAoV VTI23.7cm AO Peak GR.5.4mmHgLVOT Peak Stephen.84.0cm/s AO Mean GR.3mmHgAVA (VMAX)2.11cm2 JÚNIOR (VTI)2.10cm2 Mitral Valve MV E Vckyhymd42.0cm/sMV DECEL [id number] MV A Ufwdjpwc693.2cm/sE/A Ratio0.7 MV A [id number] Pulmonary Valve PV Peak Dsfyqlqe50.5cm/s LEFT VENTRICLE The left ventricle is normal size. Proximal septal thickening is noted. The left ventricular systolic function is normal and the ejection fraction is within normal range. The Ejection Fraction is 60-65% . There is normal LV segmental wall motion. Transmitral Doppler flow pattern is Grade I-abnormal rela xation pattern. RIGHT VENTRICLE The right ventricle is normal size. There is normal right ventricular wall thickness. The right ventr icular systolic function is normal. ATRIA The left atrium size is normal. The right atrium size is normal. The interatrial septum is intact wit h no evidence for an atrial septal defect or patent foramen ovale as noted on 2-D or Doppler imaging. AORTIC VALVE The aortic valve is moderately calcified. The aortic valve is trileaflet. Doppler and Color Flow reve aled no significant aortic regurgitation. There is no significant aortic valvular stenosis. MITRAL VALVE Mitral annular calcification is mild. There is no evidence of mitral valve prolapse. There is no mitr al valve stenosis. Doppler and Color Flow revealed no mitral valve regurgitation noted. TRICUSPID VALVE The tricuspid valve is normal in structure and function. Doppler and Color Flow revealed trace tricus pid regurgitation. There is no tricuspid valve prolapse or vegetation. There is no tricuspid valve st enosis. PULMONIC VALVE The pulmonic valve is not well visualized. GREAT VESSELS The aortic root is normal in size. The IVC is normal in size and collapses >50% with inspiration. PERICARDIAL EFFUSION There is no evidence of significant pericardial effusion. Critical Notification Critical Value: No <Conclusion> The left ventricular systolic function is normal and the ejection fraction is within normal range. Th e Ejection Fraction is 60-65%. There is normal LV segmental wall motion. Signed by : Jose Valdivia, Electronically Approved : 02/08/2019 11:09:27
--- NOTE | 2019-02-08 14:11 | NUR ---
GINA following pt. [facility] has accepted and [facility] stated they will have a bed for pt on Monday (02/11/19). Pt will need two more midnights before dc to SNU. GINA phoned pt's DPOA, Catia Mata, phone: [phone] and she is agreeable with discharge plan. Catia discussed her concerns as pt still drives and has tremors. GINA encouraged Catia to have these conversation with pt and pt's PCP to come up with a plan. GINA will continue to follow pt. Discussed with RN.
[2019-02-08 15:21] LABS: HYALINE CASTS, URINE MODERATE /HPF
[2019-02-08] MEDS: ATORVASTATIN CALCIUM 40 MG TABLET. PO SCH (21:31)
[2019-02-09 03:10] VITALS: BP 166/64
[2019-02-09 04:40] LABS: CALCIUM 8.2 mg/dL (8.5-10.1); CREATININE 2.7 mg/dL (0.7-1.3); GFR 22.9; POTASSIUM 4.3 mmol/L (3.5-5.1)
[2019-02-09] MEDS: LEVOTHYROXINE 88 MCG TABLET PO SCH (06:02)
[2019-02-09 07:00] VITALS: BP 172/73
[2019-02-09] MEDS: INSULIN LISPRO 300 UNITS/3 ML INSULN.PEN. SQ SCH ×3 (08:00→17:00)
[2019-02-09] MEDS: CLOPIDOGREL BISULFATE 75 MG TABLET PO SCH (08:11)
[2019-02-09] MEDS: glipiZIDE ER 2.5 MG TAB.ER.24 PO SCH (08:11)
[2019-02-09] MEDS: GABAPENTIN 100 MG CAPSULE. PO SCH ×3 (08:11→20:32)
[2019-02-09] MEDS: FUROSEMIDE 20 MG TABLET PO SCH (08:12)
[2019-02-09] MEDS: CITALOPRAM 10 MG TABLET. PO SCH (08:12)
[2019-02-09] MEDS: LOSARTAN POTASSIUM 50 MG TABLET. PO SCH (08:12)
[2019-02-09] MEDS: ASPIRIN ENTERIC COATED 81 MG TABLET.DR. PO SCH (08:12)
[2019-02-09] MEDS: CARBIDOPA/LEVODOPA 25/100MG TABLET PO SCH ×3 (08:12→20:32)
[2019-02-09] MEDS: CYANOCOBALAMIN (VITAMIN B-12) 1,000 MCG TABLET. PO SCH (08:12)
--- NOTE | 2019-02-09 09:29 | PDOC ---
PROGRESS NOTES Subjective Subjective Patient pleasant awake and alert. feeling better. Tele w/o significant gisell. Objective Objective Vital Signs Date Time Temp Pulse Resp B/P (MAP) Pulse Ox O2 Delivery O2 Flow Rate FiO2 02/09/19 08:30 Nasal Cannula 2.0 02/09/19 08:12 59 166/64 02/09/19 07:00 97.8 16 98 97.8 Intake and Output 02/09/19 06:59 Intake Total 120 ml Balance 120 ml Intake Oral 120 ml # Voids 4 Physical Exam Abdomen: Normal bowel sounds Heart: Regular rate Extremities: No edema General: Alert Lungs: Clear to auscultation Neuro: Other (tremor) Assessment Assessment Problems Medical Problems: (1) Acute kidney injury superimposed on chronic kidney disease Status: Acute (2) Altered mental status Status: Acute 1)Syncopal event with LOC 2)Acute on CKD Cr nearly at baseline 3)Protein malnutrition 4)Diarrhea-improving 5)HTN 6)Depression 7)DM2 8)Parkinson's 9)Hypothyroidism 10)HLD 11)Debilitation Plan Plan of Care Plan SNU on Monday Continue PT Continue Card eval for PPM if indicated vs event monitor Comment Review of Relevant I have reviewed the following items ha (where applicable) has been applied. Labs Laboratory Tests Test 02/07/19 11:47 02/07/19 16:41 02/07/19 20:40 02/08/19 04:05 Glucose (Fingerstick) 79 mg/dL (70-99) 137 mg/dL (70-99) 169 mg/dL (70-99) White Blood Count 4.2 x10^3/uL (4.0-11.0) Red Blood Count 4.17 x10^6/uL (4.30-5.70) Hemoglobin 12.0 g/dL (13.0-17.5) Hematocrit 36.7 % (39.0-53.0) Mean Corpuscular Volume 88 fL (79-100) Mean Corpuscular Hemoglobin 29 pg (25-35) Mean Corpuscular Hemoglobin Concent 33 g/dL (31-37) Red Cell Distribution Width 13.2 % (11.5-14.5) Platelet Count 243 x10^3/uL (140-400) Neutrophils (%) (Auto) 67 % (31-73) Lymphocytes (%) (Auto) 20 % (24-48) Monocytes (%) (Auto) 9 % (0-9) Eosinophils (%) (Auto) 3 % (0-3) Basophils (%) (Auto) 1 % (0-3) Neutrophils # (Auto) 2.8 x10^3uL (1.8-7.7) Lymphocytes # (Auto) 0.9 x10^3/uL (1.0-4.8) Monocytes # (Auto) 0.4 x10^3/uL (0.0-1.1) Eosinophils # (Auto) 0.1 x10^3/uL (0.0-0.7) Basophils # (Auto) 0.0 x10^3/uL (0.0-0.2) Sodium Level 142 mmol/L (136-145) Potassium Level 4.7 mmol/L (3.5-5.1) Chloride Level 107 mmol/L (98-107) Carbon Dioxide Level 26 mmol/L (21-32) Anion Gap 9 (6-14) Blood Urea Nitrogen 46 mg/dL (8-26) Creatinine 3.1 mg/dL (0.7-1.3) Estimated GFR (Cockcroft-Gault) 19.5 Glucose Level 65 mg/dL (70-99) Calcium Level 7.9 mg/dL (8.5-10.1) Thyroid Stimulating Hormone (TSH) 0.071 uIU/mL (0.358-3.74) Test 02/08/19 07:57 02/08/19 11:49 02/08/19 16:48 02/08/19 20:26 Glucose (Fingerstick) 66 mg/dL (70-99) 90 mg/dL (70-99) 93 mg/dL (70-99) 72 mg/dL (70-99) Test 02/09/19 03:50 02/09/19 07:39 Sodium Level 139 mmol/L (136-145) Potassium Level 4.3 mmol/L (3.5-5.1) Chloride Level 105 mmol/L (98-107) Carbon Dioxide Level 26 mmol/L (21-32) Anion Gap 8 (6-14) Blood Urea Nitrogen 35 mg/dL (8-26) Creatinine 2.7 mg/dL (0.7-1.3) Estimated GFR (Cockcroft-Gault) 22.9 Glucose Level 102 mg/dL (70-99) Calcium Level 8.2 mg/dL (8.5-10.1) Glucose (Fingerstick) 78 mg/dL (70-99) Laboratory Tests Test 02/08/19 11:49 02/08/19 16:48 02/08/19 20:26 02/09/19 03:50 Glucose (Fingerstick) 90 mg/dL (70-99) 93 mg/dL (70-99) 72 mg/dL (70-99) Sodium Level 139 mmol/L (136-145) Potassium Level 4.3 mmol/L (3.5-5.1) Chloride Level 105 mmol/L (98-107) Carbon Dioxide Level 26 mmol/L (21-32) Anion Gap 8 (6-14) Blood Urea Nitrogen 35 mg/dL (8-26) Creatinine 2.7 mg/dL (0.7-1.3) Estimated GFR (Cockcroft-Gault) 22.9 Glucose Level 102 mg/dL (70-99) Calcium Level 8.2 mg/dL (8.5-10.1) Test 02/09/19 07:39 Glucose (Fingerstick) 78 mg/dL (70-99) Medications Current Medications Ondansetron HCl (Zofran) 4 mg PRN Q8HRS PRN IV NAUSEA/VOMITING 1ST CHOICE; Start 02/07/19 at 04:15; Stop 02/08/19 at 04:14; Status DC Sodium Chloride 1,000 ml @ 125 mls/hr Q8H IV Last administered on 02/07/19at 21 :42; Start 02/07/19 at 04:30; Stop 02/08/19 at 04:29; Status DC Aspirin (Ecotrin) 81 mg DAILY PO Last administered on 02/09/19at 08:12; Start at 09:00 Clopidogrel Bisulfate (Plavix) 75 mg DAILY PO Last administered on 02/09/19at 08 :11; Start 02/07/19 at 09:00 Cyanocobalamin (Vitamin B-12) 1,000 mcg DAILY PO Last administered on at 08:12; Start 02/07/19 at 09:00 Furosemide (Lasix) 20 mg DAILY PO Last administered on 02/09/19at 08:12; Start 02/07/19 at 09:00 Gabapentin (Neurontin) 200 mg TID PO Last administered on 02/09/19 08:11; Start 02/07/19 at 09:00 Levothyroxine Sodium (Synthroid) 88 mcg DAILY06 PO Last administered on 06:02; Start 02/07/19 at 09:00 Atorvastatin Calcium (Lipitor) 80 mg QHS PO Last administered on 02/08/19 21: 31; Start 02/07/19 at 21:00 Carbidopa/Levodopa (Sinemet 25/100) 2 tab TID PO Last administered on 08:12; Start 02/07/19 at 09:00 Citalopram Hydrobromide (CeleXA) 15 mg DAILY PO Last administered on 02/09/19 08:12; Start 02/07/19 at 09:00 Glipizide (Glucotrol Er) 5 mg DAILY08 PO Last administered on 02/07/19 14:24; Start 02/07/19 at 09:00; Stop 02/08/19 at 07:32; Status DC Losartan Potassium (Cozaar) 50 mg DAILY PO Last administered on 02/09/19 08:12 ; Start 02/07/19 at 09:00 Insulin Human Lispro (HumaLOG) 0-5 UNITS TIDWMEALS SQ ; Start 02/07/19 at 12:00 Dextrose (Dextrose 50%-Water Syringe) 12.5 gm PRN Q15MIN PRN IV SEE COMMENTS; Start 02/07/19 at 08:15 Glipizide (Glucotrol Er) 2.5 mg DAILY08 PO Last administered on 02/09/19 08:11 ; Start 02/08/19 at 08:00 Active Scripts Active Atorvastatin Calcium 80 Mg Tablet 1 Tab PO DAILY Levothyroxine Sodium 88 Mcg Tablet 1 Tab PO DAILY Meclizine Hcl 25 Mg Tablet 25 Mg PO PRN TID PRN dizziness Glipizide Er (Glipizide) 5 Mg Tab.er.24 1 Tab PO DAILY Januvia (Sitagliptin Phosphate) 50 Mg Tablet 1 Tab PO DAILY Furosemide 20 Mg Tablet 20 Mg PO DAILY 30 Days Reported NITROGLYCERIN SubLingual (Nitroglycerin) 0.4 Mg Tab.subl 0.4 Mg SL PRN Q5MIN PRN Vitamin D (Cholecalciferol (Vitamin D3)) 50,000 Unit Capsule 50,000 Unit PO WEEKLY Sinemet Cr 50-200 Tablet (Carbidopa/Levodopa) 1 Each Tablet.er 2 Tab PO TID Vitamin B-12 (Cyanocobalamin (Vitamin B-12)) 1,000 Mcg Tablet 1 Tab PO DAILY Escitalopram Oxalate 10 Mg Tablet 15 Mg PO DAILY Aspirin Ec (Aspirin) 81 Mg Tablet.dr 81 Mg PO Gabapentin (Gabapentin) 100 Mg Capsule 200 Mg PO TID Klonopin (Clonazepam) 0.5 Mg Tablet 0.5 Mg PO TID Plavix (Clopidogrel Bisulfate) 75 Mg Tablet 1 Tab PO DAILY Diovan (Valsartan) 160 Mg Tablet 1 Tab PO DAILY Vitals/I & O Vital Sign - Last 24 Hours 02/08/19 02/08/19 02/08/19 02/08/19 11:00 11:01 11:02 14:47 Temp 97.9 97.8 97.9 97.8 Pulse 64 75 101 62 Resp 20 18 B/P (MAP) 153/52 (85) 127/85 (99) 111/71 (84) 161/66 (97) Pulse Ox 97 98 O2 Delivery Nasal Cannula Nasal Cannula O2 Flow Rate 2.0 2.0 02/08/19 02/08/19 02/08/19 02/09/19 19:00 20:00 23:00 03:10 Temp 98.0 97.6 97.3 98.0 97.6 97.3 Pulse 59 63 59 Resp 20 20 20 B/P (MAP) 170/63 (98) 150/68 (95) 166/64 (98) Pulse Ox 96 97 97 O2 Delivery Nasal Cannula Nasal Cannula Nasal Cannula Nasal Cannula O2 Flow Rate 2.0 02/09/19 02/09/19 02/09/19 07:00 08:12 08:30 Temp 97.8 97.8 Pulse 65 59 Resp 16 B/P (MAP) 172/73 (106) 166/64 Pulse Ox 98 O2 Delivery Nasal Cannula Nasal Cannula O2 Flow Rate 2.0 2.0 Intake and Output 02/08/19 02/08/19 02/09/19 14:59 22:59 06:59 Intake Total 120 ml Balance 120 ml TALIA HILTON MD Feb 09, 2019 09:29
[2019-02-09 11:00] VITALS: BP 164/67
--- NOTE | 2019-02-09 11:31 | PDOC ---
Renal-Progress Notes Subjective Notes Notes FEELING BETTER History of Present Illness Hx of present illness STABLE Vitals Vitals Vital Signs Date Time Temp Pulse Resp B/P (MAP) Pulse Ox O2 Delivery O2 Flow Rate FiO2 02/09/19 08:30 Nasal Cannula 2.0 02/09/19 08:12 59 166/64 02/09/19 07:00 97.8 16 98 97.8 Weight Weight [ ] I.O. Intake and Output Intake and Output 02/09/19 07:00 Intake Total 120 ml Balance 120 ml Intake Oral 120 ml # Voids 4 Labs Labs Laboratory Tests Test 02/08/19 11:49 02/08/19 16:48 02/08/19 20:26 02/09/19 03:50 Glucose (Fingerstick) 90 mg/dL (70-99) 93 mg/dL (70-99) 72 mg/dL (70-99) Sodium Level 139 mmol/L (136-145) Potassium Level 4.3 mmol/L (3.5-5.1) Chloride Level 105 mmol/L (98-107) Carbon Dioxide Level 26 mmol/L (21-32) Anion Gap 8 (6-14) Blood Urea Nitrogen 35 mg/dL (8-26) Creatinine 2.7 mg/dL (0.7-1.3) Estimated GFR (Cockcroft-Gault) 22.9 Glucose Level 102 mg/dL (70-99) Calcium Level 8.2 mg/dL (8.5-10.1) Test 02/09/19 07:39 02/09/19 11:15 Glucose (Fingerstick) 78 mg/dL (70-99) 146 mg/dL (70-99) Review of Systems Constitutional: yes: alert, oriented Ears/Nose/Throat: Yes: no symptom reported Eyes: Yes: no symptom reported Pulmonary: Yes no symptom reported Cardiovascular: Yes no symptom reported Gastrointestional: Yes: no symptom reported Genitourinary: Yes: no symptom reported Musculoskeletal: Yes: no symptom reported Skin: Yes no symptom reported Psychiatric/Neurological: Yes: no symptom reported Endocrine: Yes: no symptom reported Physical Exam General Appearance: no apparent distress Skin: warm Respiratory: decreased breath sounds Heart: S1S2 Abdomen: soft, bowel sounds present Genitourinary: bladder flat Extremities: pulses present Neurology: alert Musculoskeletal: Osteoarthritis Assessment Assessment IMP RJ RESOLVED WITH CR DOWN TO 2.7 AND NOW AT BASELINE CKD STAGE 4 WITH CR OF 2.4 AT BASELINE FALL/SYNCOPE HYPOTENSION-RESOLVED DM II HTN PARKINSON'S PLAN OFF IVF'S DIOVAN RESUMED WORK UP SYNCOPE ONGOING BY CARDIOLOGY WILL FOLLOW NEEDED MELBA FARRELL MD Feb 09, 2019 11:31
--- NOTE | 2019-02-09 12:20 | PDOC ---
Provider Note Provider Note No new events. Tele unremarkable. Supportive care. Monitor to be placed for outpt eval. No indication for pacer at this time. continue monitoring overnight. TIAN CHARLES MD Feb 09, 2019 12:20
[2019-02-09 15:00] VITALS: BP 170/71
[2019-02-09 19:00] VITALS: BP 118/67
[2019-02-09] MEDS: ATORVASTATIN CALCIUM 40 MG TABLET. PO SCH (20:32)
[2019-02-09 22:35] VITALS: BP 169/79
[2019-02-10 03:00] VITALS: BP 185/75
[2019-02-10] MEDS: LEVOTHYROXINE 88 MCG TABLET PO SCH (05:51)
[2019-02-10 07:00] VITALS: BP 169/73
[2019-02-10] MEDS: INSULIN LISPRO 300 UNITS/3 ML INSULN.PEN. SQ SCH ×3 (08:00→16:55)
[2019-02-10] MEDS: GABAPENTIN 100 MG CAPSULE. PO SCH ×3 (08:09→20:42)
[2019-02-10] MEDS: LOSARTAN POTASSIUM 50 MG TABLET. PO SCH ×2 (08:09→20:42)
[2019-02-10] MEDS: glipiZIDE ER 2.5 MG TAB.ER.24 PO SCH (08:10)
[2019-02-10] MEDS: CYANOCOBALAMIN (VITAMIN B-12) 1,000 MCG TABLET. PO SCH (08:10)
[2019-02-10] MEDS: CLOPIDOGREL BISULFATE 75 MG TABLET PO SCH (08:10)
[2019-02-10] MEDS: CITALOPRAM 10 MG TABLET. PO SCH (08:10)
[2019-02-10] MEDS: FUROSEMIDE 20 MG TABLET PO SCH (08:10)
[2019-02-10] MEDS: ASPIRIN ENTERIC COATED 81 MG TABLET.DR. PO SCH (08:10)
[2019-02-10] MEDS: CARBIDOPA/LEVODOPA 25/100MG TABLET PO SCH ×3 (08:10→20:42)
[2019-02-10 08:43] LABS: CALCIUM 8.7 mg/dL (8.5-10.1); CREATININE 2.3 mg/dL (0.7-1.3); GFR 27.6; POTASSIUM 4.4 mmol/L (3.5-5.1)
[2019-02-10 10:51] VITALS: BP 182/77
--- NOTE | 2019-02-10 11:48 | PDOC ---
Renal-Progress Notes Subjective Notes Notes FEELS BETTER History of Present Illness Hx of present illness IMPROVED Vitals Vitals Vital Signs Date Time Temp Pulse Resp B/P (MAP) Pulse Ox O2 Delivery O2 Flow Rate FiO2 02/10/19 10:51 98.1 67 16 182/77 (112) 95 Room Air 98.1 02/09/19 11:00 2.0 Weight Weight [ ] I.O. Intake and Output Intake and Output 02/10/19 06:59 Intake Total 150 ml Balance 150 ml Intake Oral 150 ml # Voids 6 # Bowel Movements 1 Labs Labs Laboratory Tests Test 02/09/19 17:00 02/09/19 20:31 02/10/19 07:25 02/10/19 07:38 Glucose (Fingerstick) 100 mg/dL (70-99) 84 mg/dL (70-99) 88 mg/dL (70-99) Sodium Level 137 mmol/L (136-145) Potassium Level 4.4 mmol/L (3.5-5.1) Chloride Level 102 mmol/L (98-107) Carbon Dioxide Level 27 mmol/L (21-32) Anion Gap 8 (6-14) Blood Urea Nitrogen 29 mg/dL (8-26) Creatinine 2.3 mg/dL (0.7-1.3) Estimated GFR (Cockcroft-Gault) 27.6 Glucose Level 107 mg/dL (70-99) Calcium Level 8.7 mg/dL (8.5-10.1) Test 02/10/19 11:35 Glucose (Fingerstick) 123 mg/dL (70-99) Review of Systems Constitutional: yes: alert, oriented Ears/Nose/Throat: Yes: no symptom reported Eyes: Yes: no symptom reported Pulmonary: Yes no symptom reported Cardiovascular: Yes no symptom reported Gastrointestional: Yes: no symptom reported Genitourinary: Yes: no symptom reported Musculoskeletal: Yes: no symptom reported Skin: Yes no symptom reported Psychiatric/Neurological: Yes: no symptom reported Endocrine: Yes: no symptom reported Physical Exam General Appearance: no apparent distress Skin: warm Respiratory: decreased breath sounds Heart: S1S2 Abdomen: soft, bowel sounds present Genitourinary: bladder flat Extremities: pulses present Neurology: alert Musculoskeletal: Osteoarthritis Assessment Assessment IMP RJ RESOLVED WITH CR DOWN TO 2.3 AND NOW AT BASELINE CKD STAGE 4 WITH CR OF 2.4 AT BASELINE FALL/SYNCOPE HYPOTENSION-RESOLVED DM II HTN PARKINSON'S PLAN OFF IVF'S DIOVAN RESUMED WORK UP SYNCOPE ONGOING BY CARDIOLOGY WILL FOLLOW NEEDED MELBA FARRELL MD Feb 10, 2019 11:48
[2019-02-10] MEDS ORDERED: ONDANSETRON PF 4 MG/2 ML VIAL. IV PRN (13:15)
--- NOTE | 2019-02-10 14:32 | PDOC ---
PROGRESS NOTES Subjective Subjective Patient w/o new complaint. Objective Objective Vital Signs Date Time Temp Pulse Resp B/P (MAP) Pulse Ox O2 Delivery O2 Flow Rate FiO2 02/10/19 10:51 98.1 67 16 182/77 (112) 95 Room Air 98.1 02/09/19 11:00 2.0 Intake and Output 02/10/19 07:00 Intake Total 150 ml Balance 150 ml Intake Oral 150 ml # Voids 6 # Bowel Movements 1 Physical Exam Abdomen: Normal bowel sounds Heart: Regular rate Extremities: No edema General: Alert Lungs: Clear to auscultation Assessment Assessment Problems Medical Problems: (1) Acute kidney injury superimposed on chronic kidney disease Status: Acute (2) Altered mental status Status: Acute 1)Syncopal event with LOC 2)Acute on CKD Cr nearly at baseline 3)Protein malnutrition 4)Diarrhea-improving 5)HTN 6)Depression 7)DM2 8)Parkinson's 9)Hypothyroidism 10)HLD 11)Debilitation Plan Plan of Care Plan SNU on Monday Continue PT Event monitor as outpatient Comment Review of Relevant I have reviewed the following items ha (where applicable) has been applied. Labs Laboratory Tests Test 02/08/19 16:48 02/08/19 20:26 02/09/19 03:50 02/09/19 07:39 Glucose (Fingerstick) 93 mg/dL (70-99) 72 mg/dL (70-99) 78 mg/dL (70-99) Sodium Level 139 mmol/L (136-145) Potassium Level 4.3 mmol/L (3.5-5.1) Chloride Level 105 mmol/L (98-107) Carbon Dioxide Level 26 mmol/L (21-32) Anion Gap 8 (6-14) Blood Urea Nitrogen 35 mg/dL (8-26) Creatinine 2.7 mg/dL (0.7-1.3) Estimated GFR (Cockcroft-Gault) 22.9 Glucose Level 102 mg/dL (70-99) Calcium Level 8.2 mg/dL (8.5-10.1) Test 02/09/19 11:15 02/09/19 17:00 02/09/19 20:31 02/10/19 07:25 Glucose (Fingerstick) 146 mg/dL (70-99) 100 mg/dL (70-99) 84 mg/dL (70-99) Sodium Level 137 mmol/L (136-145) Potassium Level 4.4 mmol/L (3.5-5.1) Chloride Level 102 mmol/L (98-107) Carbon Dioxide Level 27 mmol/L (21-32) Anion Gap 8 (6-14) Blood Urea Nitrogen 29 mg/dL (8-26) Creatinine 2.3 mg/dL (0.7-1.3) Estimated GFR (Cockcroft-Gault) 27.6 Glucose Level 107 mg/dL (70-99) Calcium Level 8.7 mg/dL (8.5-10.1) Test 02/10/19 07:38 02/10/19 11:35 Glucose (Fingerstick) 88 mg/dL (70-99) 123 mg/dL (70-99) Laboratory Tests Test 02/09/19 17:00 02/09/19 20:31 02/10/19 07:25 02/10/19 07:38 Glucose (Fingerstick) 100 mg/dL (70-99) 84 mg/dL (70-99) 88 mg/dL (70-99) Sodium Level 137 mmol/L (136-145) Potassium Level 4.4 mmol/L (3.5-5.1) Chloride Level 102 mmol/L (98-107) Carbon Dioxide Level 27 mmol/L (21-32) Anion Gap 8 (6-14) Blood Urea Nitrogen 29 mg/dL (8-26) Creatinine 2.3 mg/dL (0.7-1.3) Estimated GFR (Cockcroft-Gault) 27.6 Glucose Level 107 mg/dL (70-99) Calcium Level 8.7 mg/dL (8.5-10.1) Test 02/10/19 11:35 Glucose (Fingerstick) 123 mg/dL (70-99) Medications Current Medications Ondansetron HCl (Zofran) 4 mg PRN Q8HRS PRN IV NAUSEA/VOMITING 1ST CHOICE; Start 02/07/19 at 04:15; Stop 02/08/19 at 04:14; Status DC Sodium Chloride 1,000 ml @ 125 mls/hr Q8H IV Last administered on 02/07/19at 21 :42; Start 02/07/19 at 04:30; Stop 02/08/19 at 04:29; Status DC Aspirin (Ecotrin) 81 mg DAILY PO Last administered on 02/10/19 08:10; Start at 09:00 Clopidogrel Bisulfate (Plavix) 75 mg DAILY PO Last administered on 02/10/19 08 :10; Start 02/07/19 at 09:00 Cyanocobalamin (Vitamin B-12) 1,000 mcg DAILY PO Last administered on 08:10; Start 02/07/19 at 09:00 Furosemide (Lasix) 20 mg DAILY PO Last administered on 02/10/19 08:10; Start 02/07/19 at 09:00 Gabapentin (Neurontin) 200 mg TID PO Last administered on 02/10/19 13:54; Start 02/07/19 at 09:00 Levothyroxine Sodium (Synthroid) 88 mcg DAILY06 PO Last administered on 05:51; Start 02/07/19 at 09:00 Atorvastatin Calcium (Lipitor) 80 mg QHS PO Last administered on 02/09/19 20: 32; Start 02/07/19 at 21:00 Carbidopa/Levodopa (Sinemet 25/100) 2 tab TID PO Last administered on 13:54; Start 02/07/19 at 09:00 Citalopram Hydrobromide (CeleXA) 15 mg DAILY PO Last administered on 02/10/19 08:10; Start 02/07/19 at 09:00 Glipizide (Glucotrol Er) 5 mg DAILY08 PO Last administered on 02/07/19 14:24; Start 02/07/19 at 09:00; Stop 02/08/19 at 07:32; Status DC Losartan Potassium (Cozaar) 50 mg DAILY PO Last administered on 02/10/19 08:09 ; Start 02/07/19 at 09:00; Stop 02/10/19 at 12:30; Status DC Insulin Human Lispro (HumaLOG) 0-5 UNITS TIDWMEALS SQ ; Start 02/07/19 at 12:00 Dextrose (Dextrose 50%-Water Syringe) 12.5 gm PRN Q15MIN PRN IV SEE COMMENTS; Start 02/07/19 at 08:15 Glipizide (Glucotrol Er) 2.5 mg DAILY08 PO Last administered on 02/10/19at 08:10 ; Start 02/08/19 at 08:00 Losartan Potassium (Cozaar) 50 mg BID PO ; Start 02/10/19 at 21:00 Ondansetron HCl (Zofran) 4 mg PRN Q6HRS PRN IV NAUSEA/VOMITING Last administered on 02/10/19at 13:13; Start 02/10/19 at 13:15 Active Scripts Active Atorvastatin Calcium 80 Mg Tablet 1 Tab PO DAILY Levothyroxine Sodium 88 Mcg Tablet 1 Tab PO DAILY Meclizine Hcl 25 Mg Tablet 25 Mg PO PRN TID PRN dizziness Glipizide Er (Glipizide) 5 Mg Tab.er.24 1 Tab PO DAILY Januvia (Sitagliptin Phosphate) 50 Mg Tablet 1 Tab PO DAILY Furosemide 20 Mg Tablet 20 Mg PO DAILY 30 Days Reported NITROGLYCERIN SubLingual (Nitroglycerin) 0.4 Mg Tab.subl 0.4 Mg SL PRN Q5MIN PRN Vitamin D (Cholecalciferol (Vitamin D3)) 50,000 Unit Capsule 50,000 Unit PO WEEKLY Sinemet Cr 50-200 Tablet (Carbidopa/Levodopa) 1 Each Tablet.er 2 Tab PO TID Vitamin B-12 (Cyanocobalamin (Vitamin B-12)) 1,000 Mcg Tablet 1 Tab PO DAILY Escitalopram Oxalate 10 Mg Tablet 15 Mg PO DAILY Aspirin Ec (Aspirin) 81 Mg Tablet.dr 81 Mg PO Gabapentin (Gabapentin) 100 Mg Capsule 200 Mg PO TID Klonopin (Clonazepam) 0.5 Mg Tablet 0.5 Mg PO TID Plavix (Clopidogrel Bisulfate) 75 Mg Tablet 1 Tab PO DAILY Diovan (Valsartan) 160 Mg Tablet 1 Tab PO DAILY Vitals/I & O Vital Sign - Last 24 Hours 02/09/19 02/09/19 02/09/19 02/09/19 15:00 19:00 19:05 22:35 Temp 97.8 98.1 98.9 97.8 98.1 98.9 Pulse 69 66 66 Resp 18 18 17 B/P (MAP) 170/71 (104) 118/67 (84) 169/79 (109) Pulse Ox 92 96 94 O2 Delivery Room Air Room Air Room Air Room Air 02/10/19 02/10/19 02/10/19 02/10/19 03:00 07:00 08:09 08:15 Temp 97.8 98.1 97.8 98.1 Pulse 70 65 65 Resp 16 17 B/P (MAP) 185/75 (111) 169/73 (105) 169/73 Pulse Ox 99 97 O2 Delivery Room Air Room Air Room Air 02/10/19 10:51 Temp 98.1 98.1 Pulse 67 Resp 16 B/P (MAP) 182/77 (112) Pulse Ox 95 O2 Delivery Room Air Intake and Output 02/09/19 02/09/19 02/10/19 15:00 23:00 07:00 Intake Total 150 ml Balance 150 ml TALIA HILTON MD Feb 10, 2019 14:32
[2019-02-10 15:00] VITALS: BP 166/81
[2019-02-10 19:00] VITALS: BP 175/79
[2019-02-10] MEDS: ATORVASTATIN CALCIUM 40 MG TABLET. PO SCH (20:42)
[2019-02-10 23:00] VITALS: BP 153/70
[2019-02-11 03:00] VITALS: BP 136/67
[2019-02-11] MEDS: LEVOTHYROXINE 88 MCG TABLET PO SCH (05:31)
[2019-02-11 07:00] VITALS: BP 157/69
[2019-02-11] MEDS: INSULIN LISPRO 300 UNITS/3 ML INSULN.PEN. SQ SCH (08:00)
[2019-02-11 08:26] LABS: CALCIUM 8.3 mg/dL (8.5-10.1); CREATININE 2.4 mg/dL (0.7-1.3); GFR 26.2; POTASSIUM 4.8 mmol/L (3.5-5.1)
--- NOTE | 2019-02-11 09:04 | PDOC ---
PROGRESS NOTES Subjective Subjective Patient reports he feels better, agreeable to transfer to care home today. Objective Objective Vital Signs Date Time Temp Pulse Resp B/P (MAP) Pulse Ox O2 Delivery O2 Flow Rate FiO2 02/11/19 03:00 97.6 67 18 136/67 (90) 95 Room Air 97.6 02/09/19 11:00 2.0 Intake and Output 02/11/19 06:59 Intake Total 350 ml Balance 350 ml Intake Oral 350 ml # Voids 4 Physical Exam Abdomen: Normal bowel sounds, Soft, No tenderness Heart: Regular rate Extremities: No edema General: Alert, Oriented X3, No acute distress Lungs: Clear to auscultation Neuro: Other (moderate resting tremor present) Assessment Assessment Problems Medical Problems: (1) Acute kidney injury superimposed on chronic kidney disease Status: Acute (2) Altered mental status Status: Acute Plan Plan of Care 1. Vasovagal syncope - no further episodes. 2. possible arrhythmias - some intermittent tachy/gisell seen initially, improved now. To have outpatient monitor per Cardiology for further evaluation. 3. acute renal failure with prerenal azotemia - back to baseline CKD IV now. 4. DM2 - FSBG apparently controlled with less medication than he usually takes. Continue present medication and follow. 5. HTN - controlled. 6. Parkinson's disease - stable, continue his usual medication. 7. debility - to care home today. Comment Review of Relevant I have reviewed the following items ha (where applicable) has been applied. Labs Laboratory Tests Test 02/09/19 11:15 02/09/19 17:00 02/09/19 20:31 02/10/19 07:25 Glucose (Fingerstick) 146 mg/dL (70-99) 100 mg/dL (70-99) 84 mg/dL (70-99) Sodium Level 137 mmol/L (136-145) Potassium Level 4.4 mmol/L (3.5-5.1) Chloride Level 102 mmol/L (98-107) Carbon Dioxide Level 27 mmol/L (21-32) Anion Gap 8 (6-14) Blood Urea Nitrogen 29 mg/dL (8-26) Creatinine 2.3 mg/dL (0.7-1.3) Estimated GFR (Cockcroft-Gault) 27.6 Glucose Level 107 mg/dL (70-99) Calcium Level 8.7 mg/dL (8.5-10.1) Test 02/10/19 07:38 02/10/19 11:35 02/10/19 16:20 02/10/19 20:20 Glucose (Fingerstick) 88 mg/dL (70-99) 123 mg/dL (70-99) 98 mg/dL (70-99) 86 mg/dL (70-99) Test 02/11/19 07:16 02/11/19 08:07 Sodium Level 135 mmol/L (136-145) Potassium Level 4.8 mmol/L (3.5-5.1) Chloride Level 101 mmol/L (98-107) Carbon Dioxide Level 28 mmol/L (21-32) Anion Gap 6 (6-14) Blood Urea Nitrogen 25 mg/dL (8-26) Creatinine 2.4 mg/dL (0.7-1.3) Estimated GFR (Cockcroft-Gault) 26.2 Glucose Level 108 mg/dL (70-99) Calcium Level 8.3 mg/dL (8.5-10.1) Glucose (Fingerstick) 105 mg/dL (70-99) Laboratory Tests Test 02/10/19 11:35 02/10/19 16:20 02/10/19 20:20 02/11/19 07:16 Glucose (Fingerstick) 123 mg/dL (70-99) 98 mg/dL (70-99) 86 mg/dL (70-99) Sodium Level 135 mmol/L (136-145) Potassium Level 4.8 mmol/L (3.5-5.1) Chloride Level 101 mmol/L (98-107) Carbon Dioxide Level 28 mmol/L (21-32) Anion Gap 6 (6-14) Blood Urea Nitrogen 25 mg/dL (8-26) Creatinine 2.4 mg/dL (0.7-1.3) Estimated GFR (Cockcroft-Gault) 26.2 Glucose Level 108 mg/dL (70-99) Calcium Level 8.3 mg/dL (8.5-10.1) Test 02/11/19 08:07 Glucose (Fingerstick) 105 mg/dL (70-99) Medications Current Medications Ondansetron HCl (Zofran) 4 mg PRN Q8HRS PRN IV NAUSEA/VOMITING 1ST CHOICE; Start 02/07/19 at 04:15; Stop 02/08/19 at 04:14; Status DC Sodium Chloride 1,000 ml @ 125 mls/hr Q8H IV Last administered on 02/07/19at 21 :42; Start 02/07/19 at 04:30; Stop 02/08/19 at 04:29; Status DC Aspirin (Ecotrin) 81 mg DAILY PO Last administered on 02/10/19 08:10; Start at 09:00 Clopidogrel Bisulfate (Plavix) 75 mg DAILY PO Last administered on 02/10/19 08 :10; Start 02/07/19 at 09:00 Cyanocobalamin (Vitamin B-12) 1,000 mcg DAILY PO Last administered on 08:10; Start 02/07/19 at 09:00 Furosemide (Lasix) 20 mg DAILY PO Last administered on 02/10/19 08:10; Start 02/07/19 at 09:00 Gabapentin (Neurontin) 200 mg TID PO Last administered on 02/10/19 20:42; Start 02/07/19 at 09:00 Levothyroxine Sodium (Synthroid) 88 mcg DAILY06 PO Last administered on 05:31; Start 02/07/19 at 09:00 Atorvastatin Calcium (Lipitor) 80 mg QHS PO Last administered on 02/10/19 20: 42; Start 02/07/19 at 21:00 Carbidopa/Levodopa (Sinemet 25/100) 2 tab TID PO Last administered on 20:42; Start 02/07/19 at 09:00 Citalopram Hydrobromide (CeleXA) 15 mg DAILY PO Last administered on 02/10/19 08:10; Start 02/07/19 at 09:00 Glipizide (Glucotrol Er) 5 mg DAILY08 PO Last administered on 02/07/19 14:24; Start 02/07/19 at 09:00; Stop 02/08/19 at 07:32; Status DC Losartan Potassium (Cozaar) 50 mg DAILY PO Last administered on 02/10/19 08:09 ; Start 02/07/19 at 09:00; Stop 02/10/19 at 12:30; Status DC Insulin Human Lispro (HumaLOG) 0-5 UNITS TIDWMEALS SQ ; Start 02/07/19 at 12:00 Dextrose (Dextrose 50%-Water Syringe) 12.5 gm PRN Q15MIN PRN IV SEE COMMENTS; Start 02/07/19 at 08:15 Glipizide (Glucotrol Er) 2.5 mg DAILY08 PO Last administered on 02/10/19at 08:10 ; Start 02/08/19 at 08:00 Losartan Potassium (Cozaar) 50 mg BID PO Last administered on 02/10/19at 20:42; Start 02/10/19 at 21:00 Ondansetron HCl (Zofran) 4 mg PRN Q6HRS PRN IV NAUSEA/VOMITING Last administered on 02/10/19at 13:13; Start 02/10/19 at 13:15 Active Scripts Active Atorvastatin Calcium 80 Mg Tablet 1 Tab PO DAILY Levothyroxine Sodium 88 Mcg Tablet 1 Tab PO DAILY Meclizine Hcl 25 Mg Tablet 25 Mg PO PRN TID PRN dizziness Glipizide Er (Glipizide) 5 Mg Tab.er.24 1 Tab PO DAILY Januvia (Sitagliptin Phosphate) 50 Mg Tablet 1 Tab PO DAILY Furosemide 20 Mg Tablet 20 Mg PO DAILY 30 Days Reported NITROGLYCERIN SubLingual (Nitroglycerin) 0.4 Mg Tab.subl 0.4 Mg SL PRN Q5MIN PRN Vitamin D (Cholecalciferol (Vitamin D3)) 50,000 Unit Capsule 50,000 Unit PO WEEKLY Sinemet Cr 50-200 Tablet (Carbidopa/Levodopa) 1 Each Tablet.er 2 Tab PO TID Vitamin B-12 (Cyanocobalamin (Vitamin B-12)) 1,000 Mcg Tablet 1 Tab PO DAILY Escitalopram Oxalate 10 Mg Tablet 15 Mg PO DAILY Aspirin Ec (Aspirin) 81 Mg Tablet. 81 Mg PO Gabapentin (Gabapentin) 100 Mg Capsule 200 Mg PO TID Klonopin (Clonazepam) 0.5 Mg Tablet 0.5 Mg PO TID Plavix (Clopidogrel Bisulfate) 75 Mg Tablet 1 Tab PO DAILY Diovan (Valsartan) 160 Mg Tablet 1 Tab PO DAILY Vitals/I & O Vital Sign - Last 24 Hours 02/10/19 02/10/19 02/10/19 02/10/19 10:51 15:00 19:00 19:10 Temp 98.1 97.9 98.2 98.1 97.9 98.2 Pulse 67 75 70 Resp 16 17 18 B/P (MAP) 182/77 (112) 166/81 (109) 175/79 (111) Pulse Ox 95 95 92 O2 Delivery Room Air Room Air Room Air Room Air 02/10/19 02/10/19 02/11/19 20:42 23:00 03:00 Temp 97.7 97.6 97.7 97.6 Pulse 70 65 67 Resp 18 18 B/P (MAP) 175/79 153/70 (97) 136/67 (90) Pulse Ox 94 95 O2 Delivery Room Air Room Air Intake and Output 02/10/19 02/10/19 02/11/19 14:59 22:59 06:59 Intake Total 250 ml 100 ml Balance 250 ml 100 ml KESHIA JIANG MD Feb 11, 2019 09:04
--- NOTE | 2019-02-11 09:10 | SNU/HH DC ---
DISCHARGE ORDERS DISCHARGE INFORMATION: FINAL DIAGNOSIS Problems Medical Problems: (1) Acute kidney injury superimposed on chronic kidney disease Status: Acute (2) Altered mental status Status: Acute CONDITION ON DISCHARGE: Stable CODE STATUS: Code Status: Full CUSTODIAL: SNF STAY <30 DAYS: Yes HOSPICE: HOSPICE: No HOSPICE EVAL & TREAT: No LTAC: ADMIT TO LTAC: No POST DISCHARGE ORDERS: ACTIVITY ORDERS: No restrictions, Activity as tolerated DIET AFTER DISCHARGE: ADA WOUND/INCISION CARE: No wound care needed CHECKS AFTER DISCHARGE: CHECKS AFTER DISCHARGE: Check blood press - daily, Check blood sugar, ac/hs FOLLOW-UP: PHYSICIAN FOLLOW-UP: Follow up with Dr Gan within two weeks after discharge from [facility] TREATMENT/EQUIPMENT ORDERS: ADAPTIVE EQUIPMENT NEEDED: [facility] For: Evalulation/Treatment Occupational Therapy For: Evaluation/Treatment DISCHARGE MEDICATIONS: Home Meds Active Scripts Atorvastatin Calcium (ATORVASTATIN CALCIUM) 80 Mg Tablet, 1 TAB PO DAILY, #30 TAB 5 Refills Prov:KESHIA GAN MD 08/16/18 Levothyroxine Sodium (LEVOTHYROXINE SODIUM) 88 Mcg Tablet, 1 TAB PO DAILY, #30 TAB 5 Refills Prov:KESHIA GAN MD 08/16/18 Meclizine Hcl (MECLIZINE HCL) 25 Mg Tablet, 25 MG PO PRN TID PRN for DIZZINESS, #30 dizziness Prov:MANASA BRUNO Jr. DO 07/18/18 Glipizide (GLIPIZIDE ER) 5 Mg Tab.er.24, 1 TAB PO DAILY, #30 TAB 5 Refills Prov:KESHIA GAN MD 10/09/17 Sitagliptin Phosphate (JANUVIA) 50 Mg Tablet, 1 TAB PO DAILY, #30 TAB 5 Refills Prov:KESHIA GAN MD 10/09/17 Furosemide (FUROSEMIDE) 20 Mg Tablet, 20 MG PO DAILY for 30 Days, #30 TAB Prov:KESHIA GAN MD 10/09/17 Reported Medications Nitroglycerin (NITROGLYCERIN SubLingual) 0.4 Mg Tab.subl, 0.4 MG SL PRN Q5MIN PRN for CHEST PAIN, BOTTLE 08/15/18 Cholecalciferol (Vitamin D3) (Vitamin D) 50,000 Unit Capsule, 02013 UNIT PO WEEKLY, CAP 08/15/18 Carbidopa/Levodopa (SINEMET CR 50-200 TABLET) 1 Each Tablet.er, 2 TAB PO TID, TAB 08/15/18 Cyanocobalamin (Vitamin B-12) (VITAMIN B-12) 1,000 Mcg Tablet, 1 TAB PO DAILY, # 30 TAB 2 Refills 10/03/17 Escitalopram Oxalate (ESCITALOPRAM OXALATE) 10 Mg Tablet, 15 MG PO DAILY for ANTI-DEPRESSANT, #30 TAB 0 Refills 10/03/17 Aspirin (ASPIRIN EC) 81 Mg Tablet.dr, 81 MG PO, TAB.SR 10/03/17 Gabapentin (GABAPENTIN ) 100 Mg Capsule, 200 MG PO TID, CAP 10/03/17 Clonazepam (KLONOPIN) 0.5 Mg Tablet, 0.5 MG PO TID, TAB 06/23/15 Clopidogrel Bisulfate (PLAVIX) 75 Mg Tablet, 1 TAB PO DAILY, #90 TAB 1 Refill 06/23/15 Valsartan (DIOVAN) 160 Mg Tablet, 1 TAB PO DAILY, #30 TAB 5 Refills 06/23/15 KESHIA GAN MD Feb 11, 2019 09:10
[2019-02-11 09:26] VITALS: BP 157/69
[2019-02-11] MEDS: glipiZIDE ER 2.5 MG TAB.ER.24 PO SCH (09:26)
[2019-02-11] MEDS: CLOPIDOGREL BISULFATE 75 MG TABLET PO SCH (09:26)
[2019-02-11] MEDS: CARBIDOPA/LEVODOPA 25/100MG TABLET PO SCH (09:26)
[2019-02-11] MEDS: CYANOCOBALAMIN (VITAMIN B-12) 1,000 MCG TABLET. PO SCH (09:26)
[2019-02-11] MEDS: LOSARTAN POTASSIUM 50 MG TABLET. PO SCH (09:26)
[2019-02-11] MEDS: CITALOPRAM 10 MG TABLET. PO SCH (09:26)
[2019-02-11] MEDS: GABAPENTIN 100 MG CAPSULE. PO SCH (09:26)
[2019-02-11] MEDS: FUROSEMIDE 20 MG TABLET PO SCH (09:26)
[2019-02-11] MEDS: ASPIRIN ENTERIC COATED 81 MG TABLET.DR. PO SCH (09:26)
--- NOTE | 2019-02-11 09:52 | NUR ---
SW following pt. SW phoned and faxed orders to [facility]. Pt will transport via [facility] at 1100. Pt's choice and rights forms verbally consented by pt and copies placed on chart. Pt's DPOA notified of plan and agreeable. RN notified. Packet on chart.
--- NOTE | 2019-02-11 10:04 | DS ---
DATE OF DISCHARGE: 02/11/2019 CHIEF COMPLAINT: Syncope. HISTORY OF PRESENT ILLNESS: The patient is a 78-year-old male who was brought to the Emergency Room from his assisted living facility with the above complaint. He was apparently found unconscious in the laundry room. EMS originally found him unresponsive and hypotensive. He was given a fluid bolus and brought to the Emergency Room. Initial evaluation there showed him to be in acute renal failure and to have a mildly decreased level of consciousness. Treatment was started and he was admitted for further care. HOSPITAL COURSE: The patient was seen in consultation by Cardiology and Nephrology. He had no further syncopal episodes while hospitalized. His acute renal failure was treated with fluid and responded well to this. His renal function has returned to his usual chronic kidney disease stage 4. There was some intermittent mild tachycardia and bradycardia seen on telemetry early in the patient's hospital stay. A transesophageal echocardiogram was done which showed a preserved ejection fraction of 60-65% with normal left ventricular wall motion and mild diastolic dysfunction. Cardiology recommended continuing the patient on aspirin and Plavix. They plan outpatient monitoring for further evaluation of possible arrhythmias which could be contributing to his syncope. The patient has diabetes mellitus type 2. He usually takes glipizide and Januvia for this. His fingersticks have been mildly low at times here and therefore he will be discharged on the glipizide extended release only, and this will be followed as an outpatient. Home medication list shows Klonopin 0.5 mg t.i.d. This was held at admission due to his decreased level of consciousness and has not been resumed. He has Parkinson disease and takes Sinemet for this. The patient does have some debility. He was seen by Physical and Occupational Therapy and [facility]. The patient is agreeable to this, and he will transfer to [facility] today. FINAL DIAGNOSES: 1. Vasovagal syncope. 2. Possible cardiac arrhythmias. 3. Acute renal failure with prerenal azotemia. 4. Chronic kidney disease stage 4. 5. Diabetes mellitus type 2. 6. Hypertension. 7. Parkinson disease. 8. Debility. DISCHARGE MEDICATIONS: Aspirin 81 mg daily, atorvastatin 80 mg daily, Sinemet CR 50/200 two p.o. t.i.d., vitamin D 50,000 units weekly, Plavix 75 mg daily, vitamin B12 of 1000 mcg daily, escitalopram 15 mg daily, furosemide 20 mg daily, gabapentin 200 mg t.i.d., glipizide ER 5 mg daily, levothyroxine 88 mcg daily, meclizine 25 mg p.r.n., nitroglycerin p.r.n., Diovan 160 mg daily. The Klonopin and Januvia have been discontinued at this time. KESHIA JIANG MD DR: CHONG/cristhian JOB#: [id number] / [id number] ALEXANDREA
--- NOTE | 2019-02-11 10:09 | PDOC ---
SUBJECTIVE ROS No complaints . states dc ing to [facility] today OBJECTIVE Vital Signs Vital Signs Date Time Temp Pulse Resp B/P (MAP) Pulse Ox O2 Delivery O2 Flow Rate FiO2 02/11/19 09:26 71 157/69 02/11/19 07:00 97.9 18 93 Room Air 97.9 I & 0 Intake and Output 02/11/19 07:00 Intake Total 350 ml Balance 350 ml Intake Oral 350 ml # Voids 4 PHYSICAL EXAM Physical Exam Abdomen: Normal bowel sounds, Soft, No tenderness Heart: Regular rate Extremities: No edema General: Alert, Oriented X3, No acute distress Lungs: Clear to auscultation Neuro: Other (moderate resting tremor present) DIAGNOSIS/ASSESSMENT Assessment & Plan RJ - Resolved Creatinine down to 2.3-2.4 Diovan was resumed over the weekend CKD stage 4 - Baseline Cr 2.4 Primary metal coater- Fall/ Syncope - Cardiology on board Hypotension- Resolved DM II HTN Parkinson's COMMENT/RELEVANT DATA Meds Current Medications Medications (Trade) Dose Ordered Sig/Kristie Start Time Stop Time Status Last Admin Dose Admin Aspirin (Ecotrin) 81 mg DAILY 02/07/19 09:00 02/11/19 09:26 81 MG Atorvastatin Calcium (Lipitor) 80 mg QHS 02/07/19 21:00 02/10/19 20:42 80 MG Carbidopa/Levodopa (Sinemet 25/100) 2 tab TID 02/07/19 09:00 02/11/19 09:26 2 TAB Citalopram Hydrobromide (CeleXA) 15 mg DAILY 02/07/19 09:00 02/11/19 09:26 15 MG Clopidogrel Bisulfate (Plavix) 75 mg DAILY 02/07/19 09:00 02/11/19 09:26 75 MG Cyanocobalamin (Vitamin B-12) 1,000 mcg DAILY 02/07/19 09:00 02/11/19 09:26 1,000 MCG Dextrose (Dextrose 50%-Water Syringe) 12.5 gm PRN Q15MIN PRN 02/07/19 08:15 Furosemide (Lasix) 20 mg DAILY 02/07/19 09:00 02/11/19 09:26 20 MG Gabapentin (Neurontin) 200 mg TID 02/07/19 09:00 02/11/19 09:26 200 MG Glipizide (Glucotrol Er) 2.5 mg DAILY08 02/08/19 08:00 02/11/19 09:26 2.5 MG Insulin Human Lispro (HumaLOG) 0-5 UNITS TIDWMEALS 02/07/19 12:00 Levothyroxine Sodium (Synthroid) 88 mcg DAILY06 02/07/19 09:00 02/11/19 05:31 88 MCG Losartan Potassium (Cozaar) 50 mg BID 02/10/19 21:00 02/11/19 09:26 50 MG Ondansetron HCl (Zofran) 4 mg PRN Q6HRS PRN 02/10/19 13:15 02/10/19 13:13 4 MG Sodium Chloride 1,000 ml @ 125 mls/hr Q8H 02/07/19 04:30 02/08/19 04:29 DC 02/07/19 21:42 125 MLS/HR Lab Laboratory Tests Test 02/10/19 11:35 02/10/19 16:20 02/10/19 20:20 02/11/19 07:16 Glucose (Fingerstick) 123 mg/dL (70-99) 98 mg/dL (70-99) 86 mg/dL (70-99) Sodium Level 135 mmol/L (136-145) Potassium Level 4.8 mmol/L (3.5-5.1) Chloride Level 101 mmol/L (98-107) Carbon Dioxide Level 28 mmol/L (21-32) Anion Gap 6 (6-14) Blood Urea Nitrogen 25 mg/dL (8-26) Creatinine 2.4 mg/dL (0.7-1.3) Estimated GFR (Cockcroft-Gault) 26.2 Glucose Level 108 mg/dL (70-99) Calcium Level 8.3 mg/dL (8.5-10.1) Test 02/11/19 08:07 Glucose (Fingerstick) 105 mg/dL (70-99) Results All relevant outside records, renal labs, imaging studies, telemetry/EKG's were reviewed. CHICA GREEN MD Feb 11, 2019 10:09
--- NOTE | 2019-02-11 10:49 | PDOC ---
CARDIO Progress Notes Date and Time Date of Service 02/11/19 Time of Evaluation 1015 Subjective Subjective: No Chest Pain, No shortness of breath Vitals Vitals Vital Signs Date Time Temp Pulse Resp B/P (MAP) Pulse Ox O2 Delivery O2 Flow Rate FiO2 02/11/19 09:26 71 157/69 02/11/19 07:00 97.9 18 93 Room Air 97.9 Weight Weight [ ] Input and Output Intake and Output Intake and Output 02/11/19 06:59 Intake Total 350 ml Balance 350 ml Intake Oral 350 ml # Voids 4 Laboratory Labs Laboratory Tests Test 02/10/19 11:35 02/10/19 16:20 02/10/19 20:20 02/11/19 07:16 Glucose (Fingerstick) 123 mg/dL (70-99) 98 mg/dL (70-99) 86 mg/dL (70-99) Sodium Level 135 mmol/L (136-145) Potassium Level 4.8 mmol/L (3.5-5.1) Chloride Level 101 mmol/L (98-107) Carbon Dioxide Level 28 mmol/L (21-32) Anion Gap 6 (6-14) Blood Urea Nitrogen 25 mg/dL (8-26) Creatinine 2.4 mg/dL (0.7-1.3) Estimated GFR (Cockcroft-Gault) 26.2 Glucose Level 108 mg/dL (70-99) Calcium Level 8.3 mg/dL (8.5-10.1) Test 02/11/19 08:07 Glucose (Fingerstick) 105 mg/dL (70-99) Review of Systems Constitutional: yes: alert, oriented Ears/Nose/Throat: Yes: no symptom reported Eyes: Yes: no symptom reported Pulmonary: Yes no symptom reported Cardiovascular: Yes no symptom reported Gastrointestional: Yes: no symptom reported Genitourinary: Yes: no symptom reported Musculoskeletal: Yes: no symptom reported Skin: Yes no symptom reported Psychiatric/Neurological: Yes: no symptom reported Endocrine: Yes: no symptom reported Physical Exam HEENT: Neck Supple W Full Motion Chest: Symmetric LUNGS: Clear to Auscultation Heart: S1S2, RRR (off tele ) Abdomen: Soft N/T Extremities: No Edema Neurology: alert, oriented, follow commands Assessment Assessment 1. Syncope; echo with preserved LV systolic function. No significant valvular anomalies. Noted to be orthostatic SBP drop from 150 supine to 111 standing. 2. Arrhythmia; paroxysmal atrial flutter/afib rather than first degree AV block. Unable to review telemetry as it has been discontinued. 3. Parkinson's 4. CAD; 2004 CABG. clinically stable 5. Hypertension 6. Diabetes, II 7. Hyperlipidemia 8. CKD Recommendations Discussed changing positions slowly Avoid AV jake blocking agents PP upon discharge for rehab Will arrange for outpatient event monitor upon discharge from [facility]. Continue secondary prevention measures ASA for stroke prophylaxis LETTY HDEZ APRN Feb 11, 2019 10:49
--- NOTE | 2019-02-11 11:32 | NUR ---
Discharge Note: TALIA JENNINGS [address] [place] [address] Discharge instructions and discharge home medications reviewed with Patient and a copy given. All questions have been answered and understanding verbalized. Discontinued lines and drains: peripheral IV. Patient discharged to Rehab Facility with Ambulance Personnel via Wheelchair. Pt refused D/C wound photos. Pt is upset that he lost his glasses. Explained to patient that he did not have his glasses when he was admitted. Patient will call [facility] to confirm that they are at home. Report called to [facility].
--- NOTE | 2019-02-11 15:38 | RAD ---
MR#: [id number] Date of Study: 02/08/2019 Ordering Physician: DIMPLE EMERSON, Referring Physician: KESHIA JIANG Tech: Lisa Parra RDMS, NEREYDA APPROVED REPORT Patient Location: IN-PATIENT Laterality:Bilateral Indications Syncope Doppler Spectral Velocity Analysis Right Left pCCA 110/14 cm/spCCA 82/12 cm/s mCCA 88/10 cm/smCCA 80/13 cm/s dCCA 91/13 cm/sdCCA 70/11 cm/s Bulb 74/9 cm/sBulb 137/20 cm/s ECA 114/0 cm/sECA 184/3 cm/s pICA 50/10 cm/spICA 55/13 cm/s Emily 67/14 cm/smICA 59/14 cm/s dICA 60/15 cm/sdICA 67/19 cm/s Vert. 38/10 cm/sVert. 57/12 cm/s Subcl. 141/51 cm/sSubcl. 171/12 cm/s ICA/CCA 0.61ICA/CCA 0.82 Findings Grayscale images of the bilateral common carotid and internal and external carotid vessels at the lev el of the carotid bulb and bifurcation demonstrate moderate to significant athero-'s chronic plaque. Spectral waveforms and color Doppler involving the common carotid, and internal carotid vessels do no t reveal any significant hemodynamically flow-limiting stenosis. Normal ICA to CCA ratios are noted. Vertebral velocities are antegrade. The left external carotid artery appears to have a greater than 50% stenosis. Critical Notification Critical Value: No <Conclusion> 1. Moderate to severe atheromatous burden involving the bilateral carotid bulbs without any significa nt hemodynamic flow-limiting stenosis. Signed by : Jose Valdivia, Electronically Approved : 02/11/2019 15:38:37
== END 2019-02-11 11:37 | DRG 682 ==
LOC: ER 01:33 → 5 NORTH 04:15
PROVIDERS: ADMIT Family Medicine; ATTEND Family Medicine
DX: N17.9 Acute kidney failure, unspecified (principal); E43 Unspecified severe protein-calorie malnutrition; I13.0 Hypertensive heart and chronic kidney disease with heart failure and stage 1 through stage 4 chronic kidney disease, or unspecified chronic kidney disease; I48.92 Unspecified atrial flutter; N18.4 Chronic kidney disease, stage 4 (severe); I95.9 Hypotension, unspecified; I50.9 Heart failure, unspecified; E03.9 Hypothyroidism, unspecified; E11.22 Type 2 diabetes mellitus with diabetic chronic kidney disease; E11.649 Type 2 diabetes mellitus with hypoglycemia without coma; E78.00 Pure hypercholesterolemia, unspecified; E78.5 Hyperlipidemia, unspecified; E86.0 Dehydration; F32.9 Major depressive disorder, single episode, unspecified; K57.90 Diverticulosis of intestine, part unspecified, without perforation or abscess without bleeding; M19.90 Unspecified osteoarthritis, unspecified site; G20 Parkinson's disease; I25.10 Atherosclerotic heart disease of native coronary artery without angina pectoris; I45.10 Unspecified right bundle-branch block; I48.91 Unspecified atrial fibrillation; J44.9 Chronic obstructive pulmonary disease, unspecified; R29.6 Repeated falls; Z86.73 Personal history of transient ischemic attack (TIA), and cerebral infarction without residual deficits; Z95.1 Presence of aortocoronary bypass graft; Z68.23 Body mass index [BMI] 23.0-23.9, adult
CPT/HCPCS: 36415; 70450; 71045; 72072; 72100; 80048; 80053; 80307; 81001; 82140; 82962; 83735; 83880; 84443; 84484; 85025; 85610; 85730; 93005; 93306; 93880; J1815; J2405; J7030; 97110; 97116; 99285-25

== ENCOUNTER 2019-05-29 08:44 | Emergency (ER) | payer MEDICARE, OTHER ==
[~2019-05-29] VITALS: Ht 167.6 cm; Wt 71.2 kg
[2019-05-29] MEDS ORDERED: cloNIDine HCL 0.1 MG TABLET PO ONE (09:00)
--- NOTE | 2019-05-29 09:03 | PHYS DOC ---
Past Medical History Past Medical History: Diabetes-Type II, High Cholesterol, Hypertension, Hypothyroid, TIA, Other Additional Past Medical Histor: tremors, NEUROPATHY, RENAL FAILURE, parkinsons, osteoarthritis Past Surgical History: Coronary Bypass Surgery Alcohol Use: None Drug Use: None Adult General HPI HPI Patient is an 79-year-old male with history of hypertension and Parkinson's disease, who presents to the emergency department for evaluation. He states that this morning, he felt dizzy, and vomited once, and just didn't feel well. He states his blood pressure was noted to be elevated, he is normally well- controlled on his blood pressure medication. He doesn't have a history of Parkinson's disease, but reports taking his Parkinson's medication as instructed including this morning. He is not experiencing any pain at this time. He denies any headache, vision changes, chest pain, or shortness of breath. There are no alleviating, or exacerbating factors to his symptoms otherwise. Review of Systems Review of Systems Constitutional: Denies fever or chills [] Eyes: Denies change in visual acuity, redness, or eye pain [] HENT: Denies nasal congestion or sore throat [] Respiratory: Denies cough or shortness of breath [] Cardiovascular: The patient denies any shortness of breath, chest pain, palpitations, or orthopnea [] GI: Denies abdominal pain, bloody stools or diarrhea [] : Denies dysuria or hematuria [] Musculoskeletal: Denies back pain or joint pain [] Integument: Denies rash or skin lesions [] Neurologic: Denies headache, focal weakness or sensory changes [] Endocrine: Denies polyuria or polydipsia [] All other systems were reviewed and found to be within normal limits, except as documented in this note. Current Medications Current Medications Current Medications Medications (Trade) Dose Ordered Sig/Kristie Start Time Stop Time Status Last Admin Dose Admin Clonidine HCl (Catapres) 0.1 mg 1X ONCE 05/29/19 09:00 05/29/19 09:01 DC 05/29/19 09:28 0.1 MG Hydralazine HCl (Apresoline Inj) 5 mg 1X ONCE 05/29/19 12:30 05/29/19 12:31 Lorazepam (Ativan Inj) 1 mg 1X ONCE 05/29/19 09:00 05/29/19 09:01 DC 05/29/19 09:29 1 MG Allergies Allergies Allergies Coded Allergies Type Severity Reaction Last Updated Verified No Known Drug Allergies 06/17/15 No Physical Exam Physical Exam PHYSICAL EXAM: CONSTITUTIONAL: Well developed, well nourished HEAD: normocephalic, atraumatic EENT: PERRL, EOMI. Conjunctivae normal color, sclerae non-icteric; moist mucous membranes. NECK: Supple, non-tender; no meningismus. LUNGS: Lungs CTA, breathing even and unlabored. Normal air movement. HEART: Regular rate and rhythm, no murmur CHEST: No deformity; non-tender ABDOMEN: The abdomen is soft, and non-tender, no masses or bruits. EXTREM: Normal ROM; no deformity, no calf tenderness. Normal pulses palpable in all extremities. There is no pedal edema. SKIN: No rash; no diaphoresis NEURO: Alert; normal speech and cognition; CN's grossly intact; strength grossly intact without focal deficit. There is a Parkinsonian tremor present. BACK: No CVA TTP. Current Patient Data Vital Signs Vital Signs Date Time Temp Pulse Resp B/P (MAP) Pulse Ox O2 Delivery O2 Flow Rate FiO2 05/29/19 09:28 57 231/114 05/29/19 08:44 98.2 17 95 Room Air 98.2 Lab Values Laboratory Tests Test 05/29/19 08:55 White Blood Count 3.7 x10^3/uL (4.0-11.0) L Red Blood Count 4.19 x10^6/uL (4.30-5.70) L Hemoglobin 12.4 g/dL (13.0-17.5) L Hematocrit 37.3 % (39.0-53.0) L Mean Corpuscular Volume 89 fL (79-100) Mean Corpuscular Hemoglobin 30 pg (25-35) Mean Corpuscular Hemoglobin Concent 33 g/dL (31-37) Red Cell Distribution Width 14.1 % (11.5-14.5) Platelet Count 221 x10^3/uL (140-400) Neutrophils (%) (Auto) 67 % (31-73) Lymphocytes (%) (Auto) 18 % (24-48) L Monocytes (%) (Auto) 11 % (0-9) H Eosinophils (%) (Auto) 4 % (0-3) H Basophils (%) (Auto) 1 % (0-3) Neutrophils # (Auto) 2.5 x10^3uL (1.8-7.7) Lymphocytes # (Auto) 0.7 x10^3/uL (1.0-4.8) L Monocytes # (Auto) 0.4 x10^3/uL (0.0-1.1) Eosinophils # (Auto) 0.1 x10^3/uL (0.0-0.7) Basophils # (Auto) 0.0 x10^3/uL (0.0-0.2) Sodium Level 140 mmol/L (136-145) Potassium Level 5.3 mmol/L (3.5-5.1) H Chloride Level 106 mmol/L (98-107) Carbon Dioxide Level 25 mmol/L (21-32) Anion Gap 9 (6-14) Blood Urea Nitrogen 33 mg/dL (8-26) H Creatinine 2.9 mg/dL (0.7-1.3) H Estimated GFR (Cockcroft-Gault) 21.0 BUN/Creatinine Ratio 11 (6-20) Glucose Level 127 mg/dL (70-99) H Calcium Level 8.3 mg/dL (8.5-10.1) L Total Bilirubin 0.4 mg/dL (0.2-1.0) Aspartate Amino Transferase (AST) 12 U/L (15-37) L Alanine Aminotransferase (ALT) < 6 U/L (16-63) L Alkaline Phosphatase 82 U/L (46-116) Troponin I Quantitative < 0.017 ng/mL (0.000-0.055) Total Protein 6.8 g/dL (6.4-8.2) Albumin 2.8 g/dL (3.4-5.0) L Albumin/Globulin Ratio 0.7 (1.0-1.7) L Laboratory Tests 05/29/19 08:55 Laboratory Tests 05/29/19 08:55 EKG EKG [Normal sinus rhythm at a rate of 58 bpm, left axis deviation, right bundle- branch block, there are no acute ischemic ST/T changes.] Radiology/Procedures Radiology/Procedures [PROCEDURE: CT HEAD WO CONTRAST PQRS Compliance Statement: One or more of the following individualized dose reduction techniques were utilized for this examination: 1. Automated exposure control 2. Adjustment of the mA and/or kV according to patient size 3. Use of iterative reconstruction technique CT head without contrast 05/29/2019 8:55 AM INDICATION: Hypertension and dizziness COMPARISON: MRI brain August 16, 2018, CT head February 07, 2019 TECHNIQUE: Multiple axial CT images of the head were obtained from skull base through the vertex without intravenous contrast. FINDINGS: Head: Ventricles, sulci and basal cisterns are within normal limits. Low-attenuation in the periventricular white matter is suggestive of chronic small vessel ischemic changes. Remote ischemic changes are identified in the right parietal lobe, stable from February 07, 2019. There is no hydrocephalus. Kumar-white matter differentiation is normal. There is no acute intracranial hemorrhage. There is no mass, mass effect or midline shift. There is a remote lacunar infarct in the left cerebellum. There is a remote lacunar infarct involving the right baires radiata with extension to the right putamen. Visualized portions of the orbits are normal. Paranasal sinuses are well aerated. Mastoid air cells are well aerated. Scalp and calvaria are normal. IMPRESSION: No acute intracranial hemorrhage. There are T2/FLAIR signal hyperintense foci in the periventricular and subcortical white matter most suggestive of mild chronic small vessel ischemic changes. Remote ischemic changes are identified in the right abires radiata and right parietal lobe. 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 (See chart for details) []Patient's condition remained stable. He is feeling much better and feels well at this time. Blood pressure. I discussed importance of close follow-up with his PCP for further blood pressure management, and return precautions were discussed in detail. Dragon Disclaimer Dragon Disclaimer This electronic medical record was generated, in whole or in part, using a voice recognition dictation system. Departure Departure Impression: Primary Impression: Hypertension Additional Impression: Parkinsons disease Disposition: HOME, SELF-CARE Condition: STABLE Referrals: KESHIA JIANG MD (PCP) Patient Instructions: Hypertension, Parkinson's Disease Additional Instructions: Continue taking your previously prescribed blood pressure medication. Please follow your primary care provider for further management of your blood pressure. Problem Qualifiers JUANCARLOS COOK MD May 29, 2019 09:03
[2019-05-29 09:31] LABS: BASO % 1 % (0-3); EOS # 0.1 x10^3/uL (0.0-0.7); EOS % 4 % (0-3); HEMATOCRIT 37.3 % (39.0-53.0); HEMOGLOBIN 12.4 g/dL (13.0-17.5); LYMPH # 0.7 x10^3/uL (1.0-4.8); LYMPH % 18 % (24-48); MEAN CORPUSCULAR HEMOGLOBIN 30 pg (25-35); MEAN CORPUSCULAR HGB CONC 33 g/dL (31-37); MEAN CORPUSCULAR VOLUME 89 fL (79-100); MONO # 0.4 x10^3/uL (0.0-1.1); MONO % 11 % (0-9); NEUT # 2.5 x10^3uL (1.8-7.7); NEUT % 67 % (31-73); PLATELET COUNT 221 x10^3/uL (140-400); RED BLOOD COUNT 4.19 x10^6/uL (4.30-5.70); RED CELL DISTRIBUTION WIDTH 14.1 % (11.5-14.5); WHITE BLOOD COUNT 3.7 x10^3/uL (4.0-11.0)
[2019-05-29 09:41] LABS: ANION GAP 9 (6-14); BLOOD UREA NITROGEN 33 mg/dL (8-26); BUN/CREATININE RATIO 11 (6-20); CALCIUM 8.3 mg/dL (8.5-10.1); CARBON DIOXIDE 25 mmol/L (21-32); CHLORIDE 106 mmol/L (98-107); CREATININE 2.9 mg/dL (0.7-1.3); GLUCOSE 127 mg/dL (70-99); POTASSIUM 5.3 mmol/L (3.5-5.1); SODIUM 140 mmol/L (136-145)
[2019-05-29 09:48] LABS: ALBUMIN 2.8 g/dL (3.4-5.0); ALBUMIN/GLOBULIN RATIO 0.7 (1.0-1.7); ALK PHOS 82 U/L (46-116); ALT (SGPT) < 6 U/L (16-63); AST (SGOT) 12 U/L (15-37); TOTAL BILIRUBIN 0.4 mg/dL (0.2-1.0); TOTAL PROTEIN 6.8 g/dL (6.4-8.2)
--- NOTE | 2019-05-29 09:52 | RAD ---
RS Compliance Statement: One or more of the following individualized dose reduction techniques were utilized for this examination: 1. Automated exposure control 2. Adjustment of the mA and/or kV according to patient size 3. Use of iterative reconstruction technique CT head without contrast 05/29/2019 8:55 AM INDICATION: Hypertension and dizziness COMPARISON: MRI brain August 16, 2018, CT head February 07, 2019 TECHNIQUE: Multiple axial CT images of the head were obtained from skull base through the vertex without intravenous contrast. FINDINGS: Head: Ventricles, sulci and basal cisterns are within normal limits. Low-attenuation in the periventricular white matter is suggestive of chronic small vessel ischemic changes. Remote ischemic changes are identified in the right parietal lobe, stable from February 07, 2019. There is no hydrocephalus. Kumar-white matter differentiation is normal. There is no acute intracranial hemorrhage. There is no mass, mass effect or midline shift. There is a remote lacunar infarct in the left cerebellum. There is a remote lacunar infarct involving the right baires radiata with extension to the right putamen. Visualized portions of the orbits are normal. Paranasal sinuses are well aerated. Mastoid air cells are well aerated. Scalp and calvaria are normal. IMPRESSION: No acute intracranial hemorrhage. There are T2/FLAIR signal hyperintense foci in the periventricular and subcortical white matter most suggestive of mild chronic small vessel ischemic changes. Remote ischemic changes are identified in the right baires radiata and right parietal lobe. 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 Electronically signed by: Cassandra Rosenberg MD (05/29/2019 9:49 AM) [facility]
--- NOTE | 2019-05-29 12:09 | EKG ---
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
[2019-05-29] MEDS ORDERED: hydrALAZINE 20 MG/ML VIAL. IVP ONE (12:30)
[2019-05-29 14:30] VITALS: BP 197/81
== END 2019-05-29 14:49 | disposition home or self-care (01) ==
LOC: ER 08:44
DX: I12.9 Hypertensive chronic kidney disease with stage 1 through stage 4 chronic kidney disease, or unspecified chronic kidney disease (principal); N18.9 Chronic kidney disease, unspecified; E11.22 Type 2 diabetes mellitus with diabetic chronic kidney disease; G20 Parkinson's disease; E11.40 Type 2 diabetes mellitus with diabetic neuropathy, unspecified; E78.00 Pure hypercholesterolemia, unspecified; E03.9 Hypothyroidism, unspecified; Z86.73 Personal history of transient ischemic attack (TIA), and cerebral infarction without residual deficits; Z95.1 Presence of aortocoronary bypass graft
CPT/HCPCS: 36415; 70450; 80053; 84484; 85025; 93005; 96374; 99285; J2060

== ENCOUNTER → 2019-06-04 | Outpatient (CLI) | payer MEDICARE, OTHER ==
[2019-05-29 14:30] VITALS: BP 197/81
[2019-06-04 15:47] LABS: POTASSIUM 5.7 mmol/L (3.5-5.1)
[2019-06-05 13:17] LABS: CERULOPLASMIN 24.6 mg/dL (16.0-31.0)
[2019-06-06 13:18] LABS: CALCITONIN 5.5 pg/mL (0.0-8.4)
== END ==
LOC: LAB 14:52
PROVIDERS: ATTEND Psychiatry & Neurology Neurology
DX: G25.0 Essential tremor (principal); E55.9 Vitamin D deficiency, unspecified; Z79.891 Long term (current) use of opiate analgesic
CPT/HCPCS: 36415; 80051; 82306; 82308; 82330; 82390; 82525; 82947

== ENCOUNTER → 2019-06-14 | Outpatient (CLI) | payer MEDICARE, OTHER ==
[2019-05-29 14:30] VITALS: BP 197/81
--- NOTE | 2019-06-14 12:46 | RAD ---
CT CERVICAL SPINE WO CONTRAST History: Spinal stenosis. Neck pain. Technique: Noncontrast CT imaging was performed of the cervical spine. Multiplanar images are reviewed. Exposure: One or more of the following individualized dose reduction techniques were utilized for this examination: 1. Automated exposure control 2. Adjustment of the mA and/or kV according to patient size 3. Use of iterative reconstruction technique. Comparison: MRI cervical spine June 23, 2015. Findings: Minimal grade 1 anterolisthesis C6 on C7, unchanged. Straightening of normal cervical lordosis. Normal vertebral body height. No fracture. Small right pleural effusion. Mild centrilobular emphysema. Bilateral mastoid effusion, right greater than left. C1-C2 moderate degenerative changes. C2-C3: Left uncovertebral and facet arthropathy. Mild left neural foraminal narrowing. No canal narrowing. C3-C4: Small posterior disc osteophyte complex. Uncovertebral and facet arthropathy. Mild bilateral neural foraminal narrowing. No canal narrowing. C4-C5: Uncovertebral facet arthropathy, right greater than left. Mild to moderate right neuroforaminal narrowing. C5-C6: Posterior disc osteophyte complex. Disc height loss. Vacuum disc phenomenon. Indention of the ventral thecal sac with mild canal narrowing. Probable mild cord flattening. Uncovertebral and facet arthropathy bilaterally. Moderate bilateral neural foraminal narrowing. C6-C7: Grade 1 anterolisthesis. No canal narrowing. Uncovertebral and facet arthropathy on the right. Mild right neuroforaminal narrowing. C7-T1: No canal or neuroforaminal narrowing. Impression: 1. Moderate multilevel cervical spondylosis most prominent C5-C6 with mild cord flattening and canal narrowing, unchanged. 2. Multilevel neural foraminal narrowing most prominent C4-C5 and C5-C6, unchanged. 3. Bilateral mastoid effusions, right greater than left. 4. Small right pleural effusion. Electronically signed by: Gerardo Linares DO (06/14/2019 12:43 PM) [facility]
== END | disposition home or self-care (01) ==
LOC: CT 11:26
PROVIDERS: ATTEND Psychiatry & Neurology Neurology
DX: J43.2 Centrilobular emphysema (principal); J90 Pleural effusion, not elsewhere classified; M48.02 Spinal stenosis, cervical region; M47.812 Spondylosis without myelopathy or radiculopathy, cervical region; M25.78 Osteophyte, vertebrae; M12.88 Other specific arthropathies, not elsewhere classified, other specified site; H74.8X3 Other specified disorders of middle ear and mastoid, bilateral
CPT/HCPCS: 72125

== ENCOUNTER 2019-07-13 20:30 | Emergency (ER) | payer MEDICARE, OTHER ==
[~2019-07-13] VITALS: Ht 167.6 cm; Wt 71.7 kg
[~2019-07-13 20:30] MED LIST changes: +CIPR250T30 PO; +CLON0.5T11 PO; +CYAN-25 PO; -CYAN10005 PO; +FURO-68 PO; +GABA300C18 PO; +HYDR-2869 PO; +MAG-83 PO; +PSYL1PAC7 PO
--- NOTE | 2019-07-13 20:55 | PHYS DOC ---
Past Medical History Past Medical History: Diabetes-Type II, High Cholesterol, Hypertension, H ypothyroid, TIA, Other Additional Past Medical Histor: tremors, NEUROPATHY, RENAL FAILURE, parkinsons, osteoarthritis Past Surgical History: Coronary Bypass Surgery Alcohol Use: None Drug Use: None Adult General Chief Complaint Chief Complaint: WEAKNESS/GENERALIZED HPI HPI Patient is a 79 year old [f__sex] who presents with [] Review of Systems Review of Systems Constitutional: Denies fever or chills Eyes: Denies redness or eye pain HENT: Denies nasal congestion or sore throat Respiratory: Denies cough or shortness of breath Cardiovascular: Denies chest pain or palpitations GI: Denies abdominal pain, nausea, or vomiting : Denies dysuria or hematuria Musculoskeletal: Denies back pain or joint pain Integument: Denies rash or skin lesions Neurologic: Denies headache, focal weakness or sensory changes Complete systems were reviewed and found to be within normal limits, except as documented in this note. Allergies Allergies Allergies Coded Allergies Type Severity Reaction Last Updated Verified No Known Drug Allergies 06/17/15 No Physical Exam Physical Exam Constitutional: Well developed, well nourished, no acute distress, non-toxic a ppearance HENT: Normocephalic, atraumatic, oropharynx moist Eyes: PERRL, EOMI, conjunctiva normal, no discharge Neck: Normal range of motion, no tenderness, supple Cardiovascular: Heart rate normal, regular rhythm Lungs & Thorax: Bilateral breath sounds clear to auscultation, no wheezing Abdomen: Soft, no tenderness Skin: Warm, dry, no erythema, no rash Back: No tenderness, no CVA tenderness Extremities: No tenderness, ROM intact, no edema Neurologic: Alert and oriented X 3, normal motor function, normal sensory function, no focal deficits noted Psychologic: Affect normal, judgement normal, mood normal Current Patient Data Vital Signs Vital Signs Date Time Temp Pulse Resp B/P (MAP) Pulse Ox O2 Delivery O2 Flow Rate FiO2 07/13/19 21:30 74 25 93 07/13/19 20:47 97.6 162/79 (106) Room Air 97.6 EKG EKG @2035 NSR 75bpm, Q wave III, RBBB, t wave V2-V3 Radiology/Procedures Radiology/Procedures [] Course & Med Decision Making Course & Med Decision Making Patient stable for discharge with outpatient follow-up with PCP. Discussed findings and plan with patient and family, who acknowledge understanding and agreement. Christy Disclaimer Dragon Disclaimer This electronic medical record was generated, in whole or in part, using a voice recognition dictation system. Departure Departure Impression: Primary Impression: Weakness Disposition: 01 HOME, SELF-CARE (back to ECF) Condition: IMPROVED Referrals: KESHIA JIANG MD (PCP) Patient Instructions: Weakness, [id number] NIHSS - ED NIH Stroke Scale: NIH Stroke Scale Response (Comments) Value Level of Consciousness: 0 Alert/Responsive 0 LOC Questions: 0 Answers both correctly 0 LOC Commands: 0 Performs both tasks 0 Best Gaze: 0 Normal 0 Visual: 0 No visual loss 0 Facial Palsy: 0 Normal, symmetrical 0 Motor - Left Arm 0 No drift 0 Motor - Right Arm 0 No drift 0 Motor - Left Leg 0 No drift 0 Motor: Right Leg 0 No drift 0 Limb Ataxia: 0 Absent 0 Sensory: 0 No loss 0 Best Language: 0 Normal 0 Dysathria: 0 Normal 0 Extinction and Inattention: 0 Normal 0 Total 0 NEUMANN,TALIA Young DO Jul 13, 2019 20:55
[2019-07-13 21:30] VITALS: BP 177/74
--- NOTE | 2019-07-14 10:17 | EKG ---
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
== END 2019-07-13 21:46 | disposition home or self-care (01) ==
LOC: ER 20:30
DX: R53.1 Weakness (principal); I45.10 Unspecified right bundle-branch block; E78.00 Pure hypercholesterolemia, unspecified; E03.9 Hypothyroidism, unspecified; Z86.73 Personal history of transient ischemic attack (TIA), and cerebral infarction without residual deficits; E11.40 Type 2 diabetes mellitus with diabetic neuropathy, unspecified; E11.22 Type 2 diabetes mellitus with diabetic chronic kidney disease; I12.9 Hypertensive chronic kidney disease with stage 1 through stage 4 chronic kidney disease, or unspecified chronic kidney disease; N18.9 Chronic kidney disease, unspecified; Z95.1 Presence of aortocoronary bypass graft
CPT/HCPCS: 93005; 99284-25

== ENCOUNTER → 2020-11-06 | Outpatient (CLI) | payer MEDICARE, OTHER ==
[~2020-11-06] MED LIST changes: +AMLO-186 PO; -AMLO5TAB10 PO; -ASPI-612 PO; +ASPI-886 PO; +CLON-77 PO; -CLON0.5T11 PO; -EZET10TA18 PO; +EZET10TA20 PO; +MECL-75 PO; -MECL25TA3 PO
--- NOTE | 2020-11-06 13:33 | KCIC ---
EXAMINATION: Magnetic resonance imaging (MRI) of the brain and brainstem without contrast 11/06/2020 10:15 AM HISTORY: Parkinson's disease. Severe tremor. TECHNIQUE: Multiplanar multi-weighted MRI of the brain and brainstem was performed without intravenou s contrast using the general brain protocol. COMPARISON: None available. FINDINGS: Evaluation degraded by motion artifact. The scalp and calvarium are normal. The superior sagittal sinus demonstrates normal venous flow. The corpus callosum is normal in shape and signal intensity. There is a remote lacunar infarct in the le ft cerebellum measuring 8 mm (series 5, image 6). There is a remote infarct involving the lateral bas al ganglia measuring 9 mm (series 5, image 14). The pituitary and sella are normal. The brainstem an d craniocervical junction are unremarkable. There is a moderate territory right parieto-occipital lob e infarct with associated encephalomalacia, chronic. Small territory left medial occipital lobe remot e infarct. Ventricles, sulci and basal cisterns are prominent compatible with mild to moderate genera lized cerebral volume loss. There is no mass, mass effect or midline shift. There are T2/FLAIR signal hyperintense foci in the periventricular and subcortical white matter with areas of confluence most suggestive of moderate chronic small vessel ischemic changes. Diffusion weighted images reveal no hyperintensities to suggest acute cerebral infarction. The suscep tibility weighted sequences reveal no evidence of acute or chronic hemorrhage. The paranasal sinuses are normal. The visualized portions of the mastoids are unremarkable. The orbi ts appear normal with exception of bilateral replacement. Normal flow voids are demonstrated in the carotid arteries and basilar artery. IMPRESSION: 1. No evidence for acute or subacute ischemia. 2. There is a moderate territory right parieto-occipital lobe infarct with associated encephalomalac ia, chronic. 3. There is a remote lacunar infarct involving the left cerebellum. Remote infarct identified in the right baires radiata medial left occipital lobe. 4. There is mild to moderate generalized cerebral volume loss. Electronically signed by: Cassandra Rosenberg MD (11/06/2020 11:48 AM) [facility]
== END ==
LOC: KCIC MRI 10:03
PROVIDERS: ATTEND Nurse Practitioner Family
DX: I63.81 Other cerebral infarction due to occlusion or stenosis of small artery (principal); G20 Parkinson's disease
CPT/HCPCS: 70551

== ENCOUNTER 2020-11-16 13:34 | Emergency (ER) | payer MEDICARE, OTHER ==
[~2020-11-16] VITALS: Ht 167.6 cm; Wt 65.9 kg
--- NOTE | 2020-11-16 13:50 | ED.ADGEN ---
Past Medical History Past Medical History: Diabetes-Type II, High Cholesterol, Hypertension, Hypothyroid, Renal Failure, TIA, Other Additional Past Medical Histor: tremors, NEUROPATHY, parkinsons, osteoarthritis Past Surgical History: Coronary Bypass Surgery Smoking Status: Former Smoker Alcohol Use: None Drug Use: None General Adult EDM: Chief Complaint: DIALYSIS PROBLEM HPI: HPI: Patient is a 80 year old male sent from care facility for evaluation of electrolytes. Patient is a hemodialysis patient with a left arm fistula but he has missed 5 of his last treatments. Patient had had an illness with vomiting and diarrhea, required a negative Covid test for return. Patient states his last dialysis would have been 3 days ago but he did not feel like going. Patient states he still makes urine and had a lot yesterday but very little today. Patient has no other complaints. Spoke with Gustavo requesting an electrolyte panel and will take him for dialysis if his potassium is within normal range Review of Systems: Review of Systems: Constitutional: Denies fever or chills. [] Eyes: Denies change in visual acuity. [] HENT: Denies nasal congestion or sore throat. [] Respiratory: Denies cough or shortness of breath. [] Cardiovascular: Denies chest pain or edema. [] GI: Denies abdominal pain, nausea, vomiting, bloody stools or diarrhea. [] : Denies dysuria. [] Musculoskeletal: Denies back pain or joint pain. [] Integument: Denies rash. [] Neurologic: Denies headache, focal weakness or sensory changes. [] Endocrine: Denies polyuria or polydipsia. [] Lymphatic: Denies swollen glands. [] Psychiatric: Denies depression or anxiety. [] Allergies: Allergies: Allergies Coded Allergies Type Severity Reaction Last Updated Verified No Known Drug Allergies 06/17/15 No Physical Exam: PE: Constitutional: Well developed, well nourished, no acute distress, non-toxic appearance. [] HENT: Normocephalic, atraumatic, bilateral external ears normal, oropharynx moist, no oral exudates, nose normal. [] Eyes: PERRLA, EOMI, conjunctiva normal, no discharge. [] Neck: Normal range of motion, no tenderness, supple, no stridor. [] Cardiovascular:Heart rate regular rhythm, no murmur [] Lungs & Thorax: Bilateral breath sounds clear to auscultation [] Abdomen: Bowel sounds normal, soft, no tenderness, no masses, no pulsatile masses. [] Skin: Warm, dry, no erythema, no rash. [] Back: No tenderness, no CVA tenderness. [] Extremities: No tenderness, no cyanosis, no clubbing, ROM intact, no edema. [] Neurologic: Alert and oriented X 3, normal motor function, normal sensory function, no focal deficits noted. [] Psychologic: Affect normal, judgement normal, mood normal. [] Current Patient Data: Labs: Laboratory Tests Test 11/16/20 13:55 White Blood Count 6.0 x10^3/uL (4.0-11.0) Red Blood Count 2.71 x10^6/uL (4.30-5.70) L Hemoglobin 8.9 g/dL (13.0-17.5) L Hematocrit 26.1 % (39.0-53.0) L Mean Corpuscular Volume 96 fL (79-100) Mean Corpuscular Hemoglobin 33 pg (25-35) Mean Corpuscular Hemoglobin Concent 34 g/dL (31-37) Red Cell Distribution Width 13.6 % (11.5-14.5) Platelet Count 201 x10^3/uL (140-400) Neutrophils (%) (Auto) 62 % (31-73) Lymphocytes (%) (Auto) 22 % (24-48) L Monocytes (%) (Auto) 11 % (0-9) H Eosinophils (%) (Auto) 4 % (0-3) H Basophils (%) (Auto) 1 % (0-3) Neutrophils # (Auto) 3.7 x10^3/uL (1.8-7.7) Lymphocytes # (Auto) 1.3 x10^3/uL (1.0-4.8) Monocytes # (Auto) 0.7 x10^3/uL (0.0-1.1) Eosinophils # (Auto) 0.2 x10^3/uL (0.0-0.7) Basophils # (Auto) 0.0 x10^3/uL (0.0-0.2) Sodium Level 139 mmol/L (136-145) Potassium Level 4.8 mmol/L (3.5-5.1) Chloride Level 101 mmol/L (98-107) Carbon Dioxide Level 27 mmol/L (21-32) Anion Gap 11 (6-14) Blood Urea Nitrogen 159 mg/dL (8-26) H Creatinine 11.7 mg/dL (0.7-1.3) H Estimated GFR (Cockcroft-Gault) 4.2 BUN/Creatinine Ratio 14 (6-20) Glucose Level 163 mg/dL (70-99) H Calcium Level 9.8 mg/dL (8.5-10.1) Phosphorus Level 3.9 mg/dL (2.6-4.7) Magnesium Level 2.7 mg/dL (1.8-2.4) H Total Bilirubin 0.5 mg/dL (0.2-1.0) Aspartate Amino Transferase (AST) 12 U/L (15-37) L Alanine Aminotransferase (ALT) 8 U/L (16-63) L Alkaline Phosphatase 51 U/L (46-116) Troponin I Quantitative < 0.017 ng/mL (0.000-0.055) Total Protein 6.6 g/dL (6.4-8.2) Albumin 3.4 g/dL (3.4-5.0) Albumin/Globulin Ratio 1.1 (1.0-1.7) Laboratory Tests 11/16/20 13:55 Laboratory Tests 11/16/20 13:55 Vital Signs: Vital Signs Date Time Temp Pulse Resp B/P (MAP) Pulse Ox O2 Delivery O2 Flow Rate FiO2 11/16/20 13:43 97.9 54 16 135/60 (85) 97 97.9 EKG: EKG: Sinus bradycardia, right bundle branch block, no ST elevation depression, no ectopy, no peaked T waves. [] Heart Score: Risk Factors: Risk Factors: DM, Current or recent (<one month) smoker, HTN, HLP, family history of CAD, obesity. Risk Scores: Score 0 - 3: 2.5% MACE over next 6 weeks - Discharge Home Score 4 - 6: 20.3% MACE over next 6 weeks - Admit for Clinical Observation Score 7 - 10: 72.7% MACE over next 6 weeks - Early Invasive Strategies Radiology/Procedures: Radiology/Procedures: [] Course & Med Decision Making: Course & Med Decision Making Pertinent Labs and Imaging studies reviewed. (See chart for details) Discussed with dialysis nurse, they will accept patient back to the potassium is normal. [] Dragon Disclaimer: Dragon Disclaimer: This electronic medical record was generated, in whole or in part, using a voice recognition dictation system. Departure Departure Impression: Primary Impression: Hemodialysis patient Disposition: 01 DC HOME SELF CARE/HOMELESS Condition: STABLE Referrals: KESHIA JIANG MD (PCP) Patient Instructions: Dialysis Diet, [id number] ALINE MCCURDY MD Nov 16, 2020 13:50
[2020-11-16 14:08] LABS: BASO % 1 % (0-3); EOS # 0.2 x10^3/uL (0.0-0.7); EOS % 4 % (0-3); HEMATOCRIT 26.1 % (39.0-53.0); HEMOGLOBIN 8.9 g/dL (13.0-17.5); LYMPH # 1.3 x10^3/uL (1.0-4.8); LYMPH % 22 % (24-48); MEAN CORPUSCULAR HEMOGLOBIN 33 pg (25-35); MEAN CORPUSCULAR HGB CONC 34 g/dL (31-37); MEAN CORPUSCULAR VOLUME 96 fL (79-100); MONO # 0.7 x10^3/uL (0.0-1.1); MONO % 11 % (0-9); NEUT # 3.7 x10^3/uL (1.8-7.7); NEUT % 62 % (31-73); PLATELET COUNT 201 x10^3/uL (140-400); RED BLOOD COUNT 2.71 x10^6/uL (4.30-5.70); RED CELL DISTRIBUTION WIDTH 13.6 % (11.5-14.5)
[2020-11-16 14:25] LABS: CALCIUM 9.8 mg/dL (8.5-10.1); CREATININE 11.7 mg/dL (0.7-1.3); GFR 4.2; POTASSIUM 4.8 mmol/L (3.5-5.1)
[2020-11-16 14:27] LABS: ALBUMIN 3.4 g/dL (3.4-5.0); ALBUMIN/GLOBULIN RATIO 1.1 (1.0-1.7); MAGNESIUM 2.7 mg/dL (1.8-2.4); PHOSPHORUS 3.9 mg/dL (2.6-4.7); TOTAL BILIRUBIN 0.5 mg/dL (0.2-1.0); TOTAL PROTEIN 6.6 g/dL (6.4-8.2)
[2020-11-16 16:38] VITALS: BP 150/67
--- NOTE | 2020-11-17 05:49 | EKG ---
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
== END 2020-11-16 16:40 | disposition home or self-care (01) ==
LOC: ER 13:34
DX: R11.10 Vomiting, unspecified (principal); R19.7 Diarrhea, unspecified; E78.00 Pure hypercholesterolemia, unspecified; E03.9 Hypothyroidism, unspecified; E11.40 Type 2 diabetes mellitus with diabetic neuropathy, unspecified; E11.22 Type 2 diabetes mellitus with diabetic chronic kidney disease; I12.9 Hypertensive chronic kidney disease with stage 1 through stage 4 chronic kidney disease, or unspecified chronic kidney disease; N18.9 Chronic kidney disease, unspecified; Z87.891 Personal history of nicotine dependence
CPT/HCPCS: 36415; 80053; 83735; 84100; 84484; 85025; 93005; 99285-25

== ENCOUNTER 2020-11-17 19:32 | Emergency (ER) | payer MEDICARE, OTHER ==
[~2020-11-17] VITALS: Ht 167.6 cm; Wt 80.0 kg
--- NOTE | 2020-11-17 20:51 | PHYS DOC ---
Past Medical History Past Medical History: Diabetes-Type II, High Cholesterol, Hypertension, H ypothyroid, Renal Failure, TIA, Other Additional Past Medical Histor: tremors, NEUROPATHY, parkinsons, osteoarthritis Past Surgical History: Coronary Bypass Surgery Smoking Status: Never Smoker Alcohol Use: None Drug Use: None General Adult EDM: Chief Complaint: HYPOTENSION HPI: HPI: Patient is an 80-year-old male who was brought here from dialysis center after they had trouble waking him up after his dialysis session. Patient had 4 hours of dialysis today. They checked his blood pressure and it was 76/54 therefore they sent him here for evaluation. Patient did not want to come because he said he feels fine. Patient denies any abdominal pain, no chest pain, no nausea vomiting, no trouble breathing. Patient said he did feel little bit weaker than normal. Patient denies any cough or fever. Patient wanted to be sent back to his senior living. Review of Systems: Review of Systems: Constitutional: Denies fever or chills. [] Eyes: Denies change in visual acuity. [] HENT: Denies nasal congestion or sore throat. [] Respiratory: Denies cough or shortness of breath. [] Cardiovascular: Denies chest pain or edema. [] GI: Denies abdominal pain, nausea, vomiting, bloody stools or diarrhea. [] : Denies dysuria. [] Musculoskeletal: Denies back pain or joint pain. [] Integument: Denies rash. [] Neurologic: Denies headache, focal weakness or sensory changes. [] Endocrine: Denies polyuria or polydipsia. [] Lymphatic: Denies swollen glands. [] Psychiatric: Denies depression or anxiety. [] Heart Score: Risk Factors: Risk Factors: DM, Current or recent (<one month) smoker, HTN, HLP, family history of CAD, obesity. Risk Scores: Score 0 - 3: 2.5% MACE over next 6 weeks - Discharge Home Score 4 - 6: 20.3% MACE over next 6 weeks - Admit for Clinical Observation Score 7 - 10: 72.7% MACE over next 6 weeks - Early Invasive Strategies Allergies: Allergies: Allergies Coded Allergies Type Severity Reaction Last Updated Verified No Known Drug Allergies 06/17/15 No Physical Exam: PE: Constitutional: Well developed, well nourished, no acute distress, non-toxic appearance. [] HENT: Normocephalic, atraumatic, bilateral external ears normal, oropharynx moist, no oral exudates, nose normal. [] Eyes: PERRLA, EOMI, conjunctiva normal, no discharge. [] Neck: Normal range of motion, no tenderness, supple, no stridor. [] Cardiovascular:Heart rate regular rhythm, no murmur [] Lungs & Thorax: Bilateral breath sounds clear to auscultation [] Abdomen: Bowel sounds normal, soft, no tenderness, no masses, no pulsatile masses. [] Skin: Warm, dry, no erythema, no rash. [] Back: No tenderness, no CVA tenderness. [] Extremities: No tenderness, no cyanosis, no clubbing, ROM intact, no edema. [] Neurologic: Alert and oriented X 3, normal motor function, normal sensory function, no focal deficits noted. [] Psychologic: Affect normal, judgement normal, mood normal. [] Current Patient Data: Vital Signs: Vital Signs Date Time Temp Pulse Resp B/P (MAP) Pulse Ox O2 Delivery O2 Flow Rate FiO2 11/17/20 19:34 98.1 60 18 125/55 (78) 97 Room Air 98.1 EKG: EKG: [] Radiology/Procedures: Radiology/Procedures: [] Course & Med Decision Making: Course & Med Decision Making Pertinent Labs and Imaging studies reviewed. (See chart for details) Patient is an 80-year-old male who was brought here from dialysis center after they had trouble waking him up after his dialysis session. Patient had 4 hours of dialysis today. They checked his blood pressure and it was 76/54 therefore they sent him here for evaluation. Patient did not want to come because he said he feels fine. Patient denies any abdominal pain, no chest pain, no nausea vomiting, no trouble breathing. Patient said he did feel little bit weaker than normal. Patient denies any cough or fever. Patient wanted to be sent back to his senior living. Patient's blood pressure has been stable around 110/65 with a normal heart rate. His vital signs are stable. Dragon Disclaimer: Dragon Disclaimer: This electronic medical record was generated, in whole or in part, using a voice recognition dictation system. Departure Departure Impression: Primary Impression: Weakness Additional Impression: Hypotension Disposition: 01 DC HOME SELF CARE/HOMELESS Condition: STABLE Referrals: KESHIA JIANG MD (PCP) follow up with your doctor as needed Patient Instructions: Hypotension, Weakness Additional Instructions: Thank you for visiting our Emergency Department. We appreciate you trusting us with your care. If any additional problems come up don't hesitate to return to visit us. Please follow up with your primary care provider so they can plan additional care if needed and know about the problem that you had. If symptoms worsen come back to the Emergency Department. Any concerning symptoms that start such as chest pain, shortness of air, weakness or numbness on one side of the body, running high fevers or any other concerning symptoms return to the ER. JEANNINE FANG DO Nov 17, 2020 20:51
[2020-11-17 23:04] VITALS: BP 98/46
== END 2020-11-17 23:22 | disposition home or self-care (01) ==
LOC: ER 19:32
DX: I95.9 Hypotension, unspecified (principal); R53.1 Weakness; E03.9 Hypothyroidism, unspecified; E78.00 Pure hypercholesterolemia, unspecified; E11.40 Type 2 diabetes mellitus with diabetic neuropathy, unspecified; E11.22 Type 2 diabetes mellitus with diabetic chronic kidney disease; I12.9 Hypertensive chronic kidney disease with stage 1 through stage 4 chronic kidney disease, or unspecified chronic kidney disease; N18.9 Chronic kidney disease, unspecified; Z95.5 Presence of coronary angioplasty implant and graft; Z86.73 Personal history of transient ischemic attack (TIA), and cerebral infarction without residual deficits
CPT/HCPCS: 99285-25